=== PATIENT | male | born 1955 | race Caucasian/White ===

== ENCOUNTER 2021-12-13 08:27 | Outpatient (REF) | payer MEDICARE, SELFPAY ==
[2021-12-13 11:47] LABS: Appearance Urine TURBID; Color Urine YELLOW; Glucose Urine UA 500 MG/DL (NEG); Leukocyte Esterase Urine NEG (NEG); Nitrite Urine NEG (NEG); Specific Gravity - Urine >= 1.030 (1.005-1.025); Urine Blood NEG (NEG); Urine Ketones NEG (NEG); Urine Protein NEG (NEG-TRACE)
[2021-12-13 11:54] LABS: Estimated Average Glucose 220 mg/dL; Hemoglobin A1c % 9.3 %
[2021-12-13 12:10] LABS: Alanine Aminotransferase 42 U/L (0-40); Alkaline Phosphatase 68 U/L (39-117); Anion Gap 14 (12-20); Aspartate Amino Transferase 23 U/L (5-37); Bilirubin Total 0.9 mg/dL (0.0-1.0); Blood Urea Nitrogen 16 mg/dL (9-16); Calcium 9.4 mg/dL (8.4-10.2); Carbon Dioxide 27 mmol/L (22-29); Chloride 101 mmol/L (96-108); Cholesterol 185 mg/dL; Estimated Glomerular Filt Rate > 60; Glucose Fasting 262 mg/dL (60-99); HDL Cholesterol 43 mg/dL; LDL Cholesterol Calculated 86 mg/dl; Potassium 3.9 mmol/L (3.3-5.1); Sodium 138 mmol/L (135-145); Total Protein 7.3 g/dL (6.5-8.0); Triglycerides 282 mg/dL
[2021-12-13 12:16] LABS: Prostate Specific Antigen Scr 3.87 ng/mL (<0.05-4.0); TSH reflex Free T4 1.81 uIU/mL (0.32-4.0)
[2021-12-13 12:21] LABS: Rheumatoid Factor < 15.0 IU/mL (<15.0)
[2021-12-13 12:24] LABS: Erythrocyte Sedimentation Rate 2 MM/HR (0-15)
[2021-12-13 12:43] LABS: Creatinine Urine 202.84 mg/dL; Microalbum/Creatinine Ratio Ur 16.2 ug/mg cr
[2021-12-15 13:52] LABS: CRP High Sensitivity 1.1 mg/L
== END 2021-12-13 08:28 | disposition home or self-care (01) ==
LOC: HO.WFDLDS 08:27
PROVIDERS: Visit Provider Family Medicine
DX: Z00.00 Encounter for general adult medical examination without abnormal findings (principal); Z12.5 Encounter for screening for malignant neoplasm of prostate; R73.01 Impaired fasting glucose; M19.041 Primary osteoarthritis, right hand; M19.042 Primary osteoarthritis, left hand; I10 Essential (primary) hypertension
CPT/HCPCS: 36415; 80053; 80061; 81003; 82043; 83036; 84153; 84443; 85652; 86141; 86431

== ENCOUNTER 2022-10-12 08:57 | Outpatient (REF) | payer MEDICARE, SELFPAY ==
--- NOTE | ~2022-10-12 | US_ITS ---
EXAMINATION: US ABDOMEN LIMITED CLINICAL INFORMATION: Unspecified abdominal pain, right of midline. Rule out hernia. COMPARISON: None TECHNIQUE: Real-time imaging of the right periumbilical area. FINDINGS: Limited imaging through the right umbilical/paraumbilical region reveals a right paraumbilical hernia with peristalsing bowel which corresponds to a lump. The neck is 6.5 cm wide. US/US abdomen limited IMPRESSION: Right paraumbilical/paraumbilical hernia containing peristalsing bowel.
== END 2022-10-12 08:58 | disposition home or self-care (01) ==
LOC: HO.HMGCX 08:57
PROVIDERS: PCP Family Medicine; Visit Provider Family Medicine
DX: R10.9 Unspecified abdominal pain (principal)
CPT/HCPCS: 76705

== ENCOUNTER 2022-10-15 10:55 | Outpatient (REF) | payer MEDICARE, SELFPAY ==
[2022-10-15 11:03] LABS: MANUAL DIFF FLAG NO
[2022-10-15 11:42] LABS: Basophils Percent Auto 0.4 % (0-2); Eosinophils Absolute Auto 0.3 X10*3/uL (0.0-0.4); Eosinophils Percent Auto 3.8 % (0-4); Hematocrit 47.8 % (42.0-52.0); Hemoglobin 16.7 g/dl (14.0-18.0); Imm Gran Abs Auto 0.03 X10*3/uL (0.00-0.03); Imm Gran Pct Auto 0.4 % (0.0-0.4); Lymphocytes Percent Auto 29.6 % (20-40); Mean Corpuscular HGB Conc 34.9 g/dl (31.0-36.0); Mean Corpuscular Volume 88.8 fL (80.0-98.0); Mean Platelet Volume 9.5 fL (9.4-12.4); Monocytes Absolute Auto 0.5 X10*3/uL (0.1-1.2); Monocytes Percent Auto 7.7 % (2-11); Neutrophils Percent Auto 58.1 % (45-73); Platelet Count 235 X10*3/uL (160-400); Red Blood Count 5.38 X10*6/uL (4.60-5.80); Red Cell Distribution Width 12.1 % (11.0-16.0); White Blood Count 6.9 X10*3/uL (4.8-10.8)
[2022-10-15 12:10] LABS: Alanine Aminotransferase 28 U/L (0-40); Albumin Level 4.3 g/dL (3.5-5.0); Alkaline Phosphatase 64 U/L (39-117); Anion Gap 13 (12-20); Aspartate Amino Transferase 23 U/L (5-37); Bilirubin Total 0.9 mg/dL (0.0-1.0); Blood Urea Nitrogen 12 mg/dL (9-16); Calcium 9.6 mg/dL (8.4-10.2); Carbon Dioxide 28 mmol/L (22-29); Chloride 101 mmol/L (96-108); Estimated Glomerular Filt Rate > 60; Glucose Random 271 mg/dL (60-115); Potassium 4.3 mmol/L (3.3-5.1); Sodium 138 mmol/L (135-145)
[2022-10-15 12:11] LABS: Estimated Average Glucose 200 mg/dL; Hemoglobin A1c % 8.6 %
== END 2022-10-15 10:56 | disposition home or self-care (01) ==
LOC: HO.LAB 10:55
PROVIDERS: PCP Family Medicine; Visit Provider Surgery
DX: R10.9 Unspecified abdominal pain (principal); E78.1 Pure hyperglyceridemia; E78.5 Hyperlipidemia, unspecified; E11.65 Type 2 diabetes mellitus with hyperglycemia
CPT/HCPCS: 36415; 80053; 83036; 84134; 85025; 99202

== ENCOUNTER 2022-10-30 09:22 | Outpatient (REF) | payer MEDICARE, SELFPAY ==
--- NOTE | ~2022-10-30 | CT_ITS ---
EXAMINATION: CT ABDOMEN AND PELVIS WITHOUT CONTRAST CLINICAL INFORMATION: Abdominal pain. COMPARISON: Ultrasound of 10/12/2022. TECHNIQUE: Multidetector volumetric imaging was performed from the superior aspect of the liver through the pubic symphysis. Sagittal and coronal reformatted images were obtained on the technologist's workstation. This CT examination was performed using dose optimization techniques as appropriate, variously including the following: *Automated exposure control *Adjustment of mA and/or kV according to patient size (this includes techniques or standardized protocols for targeted exams where dose is matched to indication/reason for exam; i.e. extremities or head) *Use of iterative reconstruction technique DLP: 519 mGy-cm FINDINGS: LUNG BASES: The visualized lung bases are unremarkable. No pleural or pericardial effusion. Coronary artery calcifications present. LIVER, GALLBLADDER, AND BILIARY TREE: The liver is enlarged being approximately 20 cm in vertical span. The right lobe of liver is of less density than the left likely related to focal fatty deposition. There is a 1.7 cm cyst seen within segment 7 of the liver. No intrahepatic bile duct dilatation. The gallbladder is unremarkable with no evidence of radiopaque gallstones, gallbladder wall thickening, or obvious pericholecystic inflammatory changes. PANCREAS: Unremarkable. No mass or peripancreatic inflammatory change. SPLEEN: Unremarkable. ADRENAL GLANDS: Unremarkable. KIDNEYS AND URETERS: The kidneys are normal in size, shape, and attenuation. No hydronephrosis, hydroureter, or calculi seen. There is bilateral perinephric stranding. BLADDER: There is thickened urinary bladder wall present. GASTROINTESTINAL TRACT: No dilated loops of large or small bowel are evident. No free air or free fluid is seen. The appendix appears unremarkable. No pericolonic inflammatory changes seen. ABDOMINAL WALL: No umbilical hernia is appreciated. There is mild diastasis recti present. There are bilateral inguinal hernias present containing fat with no loops of bowel involved. There is a 1.2 cm diameter dense calcification seen within the left hemiscrotum. LYMPH NODES: No lymphadenopathy identified. VASCULAR: There is moderate aortoiliac calcified plaque present with plaque at the origins of the visceral vessels. No abdominal aortic aneurysm. PELVIC VISCERA: Prostate gland is prominent. No suspicious pelvic mass. OSSEOUS STRUCTURES: No suspicious destructive bony lesions identified. Changes of enthesopathy seen about the pelvis. There is ankylosis of the sacroiliac joints bilaterally left greater than right. There is bilateral facet arthropathy seen L5-S1. Multilevel anterior spurring is seen within the thoracic and lumbar spine. CT/CT abdomen pelvis wo IV con IMPRESSION: Hepatomegaly with fatty infiltration of the liver. Thickened urinary bladder wall. Bilateral fat-containing inguinal hernias. No evidence of bowel obstruction. No evidence of obstructive uropathy. Fleischner guidelines were followed.
== END 2022-10-30 09:23 | disposition home or self-care (01) ==
LOC: HO.CT 09:22
PROVIDERS: PCP Family Medicine; Visit Provider Surgery
DX: R10.9 Unspecified abdominal pain (principal); E11.65 Type 2 diabetes mellitus with hyperglycemia; E78.1 Pure hyperglyceridemia; E78.5 Hyperlipidemia, unspecified
CPT/HCPCS: 74176

== ENCOUNTER 2022-10-31 10:55 | Outpatient (REF) | payer MEDICARE, SELFPAY ==
[2022-10-31 13:33] LABS: Glucose Random 224 mg/dL (60-115)
[2022-11-01 11:43] LABS: C Peptide 2.19 ng/mL (0.80-3.85)
[2022-11-04 10:18] LABS: Glutamic acid decarboxylase Ab <5 IU/mL (<5)
== END 2022-10-31 10:56 | disposition home or self-care (01) ==
LOC: HO.LAB 10:55
PROVIDERS: PCP Family Medicine; Visit Provider Internal Medicine Endocrinology, Diabetes & Metabolism
DX: E11.9 Type 2 diabetes mellitus without complications (principal); Z79.899 Other long term (current) drug therapy; Z79.4 Long term (current) use of insulin
CPT/HCPCS: 36415; 82947; 84681; 86341; 99202

== ENCOUNTER → 2022-11-01 12:55 | Outpatient (BNVA) | payer MEDICARE, SELFPAY | PROVIDERS: PCP Family Medicine; Visit Provider Registered Nurse Diabetes Educator | DX: E11.65 Type 2 diabetes mellitus with hyperglycemia (principal) | CPT/HCPCS: 99211 ==

== ENCOUNTER → 2022-11-02 14:18 | Outpatient (BNVA) | payer MEDICARE, SELFPAY | PROVIDERS: PCP Family Medicine; Visit Provider Surgery | DX: K40.20 Bilateral inguinal hernia, without obstruction or gangrene, not specified as recurrent (principal); E11.65 Type 2 diabetes mellitus with hyperglycemia; E78.5 Hyperlipidemia, unspecified; I10 Essential (primary) hypertension | CPT/HCPCS: 99212 ==

== ENCOUNTER → 2022-12-05 11:01 | Outpatient (BNVA) | payer MEDICARE, SELFPAY | PROVIDERS: PCP Family Medicine; Visit Provider Dietitian, Registered | DX: E11.65 Type 2 diabetes mellitus with hyperglycemia (principal) | CPT/HCPCS: 97802 ==

== ENCOUNTER 2023-01-30 10:58 | Outpatient (AMB) | payer MEDICARE, SELFPAY ==
--- NOTE | 2023-01-30 11:00 | A.OFFVIS_ITS ---
Intake Vital Signs 01/30/23 11:02 Height 5 ft 9 in Weight 194 lb 10.691 oz BMI 28.7 BP 148/70 H Blood Pressure Location Rt brachial Position Sitting Pulse 78 Pulse Source Pulse Oximeter Intake Visit Reasons: DM Intake Note: Patient present today to follow up on Type 2 Diabetes Mellitus. Last Diabetic Eye exam: 07/20/2022 Last Podiatry Visit: does not see podiatry. 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 Initially diagnosed with T2DM in 10 yrs - saw endo at [facility] in distant past Was initially started on treatment with metformin .Took Humalog in past Current regimen Glipizide 5 mg QD Lantus 34 units . Metformin 1000 mg BID Checks sugars 1 times per day. Average sugar: 156 Range: 58-347 . Avg glucose is 156 . Variability of 63 The patient's blood sugars were in paukbb53% of the time, above % of the time, and below target 6% of the time Reports low sugars once . Most recent A1C 9 on 10/02/22, . Family history of T2DM in mother, brothers, auunts and uncles . Has eyes checked yearly, last eye exam Fall 2021, denies retinopathy. Denies neuropathy, Not sees podiatry. Denies nephropathy, on TERESA/ARB. . Has HLD, on statin. . Denies CAD. Had diabetes education PFSH Surgical History Hx of shoulder surgery Hx of total ankle replacement Family History Father Lung cancer Brother Cardiac defibrillator in place Diabetes Brother Cardiac defibrillator in place Diabetes Brother No known health problems Brother No known health problems Mother Diabetes Social History Housing: House Patient Tobacco Use Status: Never used Tobacco e-Cigarette/Vaping Use: Never Used Second Hand Smoke Exposure: No service: No Current occupational status: retired Current occupational exposures/hazards: No Cognitive needs: No Hearing needs: No Vision needs: No Physical Exam Vital Signs: Last Vital Signs Pulse 78 01/30/23 11:02 BP 148/70 H 01/30/23 11:02 BMI result Body Mass Index 28.7 Results Reviewed Results Reviewed: 01/30/23 11:13 Glucose, Whole Blood Routine Laboratory Last Values Glucose (Clinic) 198 mg/dL (60-115) H 01/30/23 11:13 Assessment & Plan Assessment & Plan (1) Diabetes: Code(s): E11.9 - Type 2 diabetes mellitus without complications Plan: This is a 67-year-old white male with a history of type 2 diabetes being treated with glipizide and basal insulin with fair but improved glycemic control and no known microvascular or macrovascular complications. The plan is to have patient check his point cares pre and 2 hours post breakfast and dinner. Gave patient a sample and prescription for Ashley 3. Will talk to patient about substituting Trulicity. Will start Trulicity 0.75 mg Q weekly and titrate to 1.5 mg if tolerated. Went over side effects of Trulicity including but not limited to nausea, vomiting and rare risk of pancreatitis. Told patient once he tolerates Trulicity to stop the glipizide Trulicity samples given to patient 0.75 mg/0.5 mL Lot # . [id number] expiration date 02/16/2024 Orders: Orders AMB Hemoglobin A1c Today E11.65 - Type 2 diabetes mellitus with hyperglycemia Medications: New blood-glucose sensor (FreeStyle Ashley 3 Sensor device) As directed change every 14 days 2 ea 6RF dulaglutide (Trulicity) 1.5 mg (0.5 mL) subcut QWEEK 2 mL 0RF Coding Level of Care Code Est Pt Level 4 (58186) Diagnoses Diabetes E11.9
[2023-01-30 11:02] VITALS: BP 148/70; PULSE 78; BMI 28.7
[2023-01-30 11:17] LABS: Glucose, Whole Blood 198 mg/dL (60-115)
== END 2023-01-30 12:09 | disposition home or self-care (01) ==
LOC: HO.ENCR 10:58
PROVIDERS: PCP Family Medicine; Visit Provider Internal Medicine Endocrinology, Diabetes & Metabolism
DX: E11.65 Type 2 diabetes mellitus with hyperglycemia (principal)
CPT/HCPCS: 99214

== ENCOUNTER → 2023-01-30 10:58 | Outpatient (BNVA) | payer MEDICARE, SELFPAY | PROVIDERS: PCP Family Medicine; Visit Provider Internal Medicine Endocrinology, Diabetes & Metabolism | DX: E11.65 Type 2 diabetes mellitus with hyperglycemia (principal); E78.5 Hyperlipidemia, unspecified; Z83.3 Family history of diabetes mellitus; Z79.84 Long term (current) use of oral hypoglycemic drugs | CPT/HCPCS: 82947; 99212 ==

== ENCOUNTER → 2023-02-13 14:32 | Outpatient (BNVA) | payer MEDICARE, SELFPAY | PROVIDERS: PCP Family Medicine; Visit Provider Physician Assistant | DX: R19.4 Change in bowel habit (principal); K64.9 Unspecified hemorrhoids; Z79.4 Long term (current) use of insulin | CPT/HCPCS: 99202 ==

== ENCOUNTER → 2023-02-22 09:01 | Outpatient (BNVA) | payer MEDICARE, SELFPAY | PROVIDERS: PCP Family Medicine; Visit Provider Dietitian, Registered | DX: E11.65 Type 2 diabetes mellitus with hyperglycemia (principal) | CPT/HCPCS: 97803 ==

== ENCOUNTER → 2023-02-27 15:43 | Outpatient (BNVA) | payer MEDICARE, SELFPAY | PROVIDERS: PCP Family Medicine; Visit Provider Surgery | DX: K64.8 Other hemorrhoids (principal) | CPT/HCPCS: 46600; 99202 ==

== ENCOUNTER → 2023-04-04 10:00 | Outpatient (BNVA) | payer MEDICARE, SELFPAY | PROVIDERS: PCP Family Medicine; Visit Provider Registered Nurse Diabetes Educator | DX: E11.65 Type 2 diabetes mellitus with hyperglycemia (principal) | CPT/HCPCS: 99211 ==

== ENCOUNTER 2023-05-07 05:53 | Day surgery (SDC) | payer MEDICARE, SELFPAY ==
[2023-05-02 14:54] VITALS: BMI 28.5
[2023-05-07] VITALS (8 sets, daily range): BP systolic 131–168; BP diastolic 65–92; PULSE 57–76; RESP 14–18; TEMP 36.4–36.9; O2SAT 94–99
[2023-05-07] MEDS: Lactated Ringers 1,000 ML 100 ML IVCONT (06:14)
[2023-05-07 06:26] LABS: Glucose, Whole Blood 180 mg/dL (60-115)
--- NOTE | 2023-05-07 07:19 | HO.ANESPROP2 ---
HPI - Anesthesia Eval Consult details Narrative: for hemorrhoidectomy PMFSH Active Problems Active Problems: All Active Problems (Updated 05/02/23 @ 14:47 by Irma Fernández RN) Laboratory exam ordered as part of routine general medical examination (Acute) Diabetes (Acute) Hyperlipidemia (Acute) Arthritis of both hands (Acute) Right ankle pain (Acute) Seborrheic keratosis (Acute) Adult general medical exam (Acute) Hypertriglyceridemia (Acute) Screening for colon cancer (Acute) Screening for prostate cancer (Acute) Essential hypertension (Acute) Elevated alanine aminotransferase (ALT) level (Acute) Murmur (Acute) Neoplasm of uncertain behavior of skin (Acute) Right knee pain (Acute) Infection of skin (Acute) Abdominal pain (Acute) Hemorrhoids (Acute) Fear of flying (Acute) Poorly controlled type 2 diabetes mellitus (Acute) Inguinal hernia bilateral, non-recurrent (Acute) Bowel habit changes (Acute) Prolapsed hemorrhoids (Acute) Past Medical History Medical History (Updated 05/02/23 @ 14:47 by Irma Fernández RN) Diabetes Elevated cholesterol HTN (hypertension) Murmur Prolapsed hemorrhoids Family History Family History Father Lung cancer Brother Cardiac defibrillator in place Diabetes Brother Cardiac defibrillator in place Diabetes Brother No known health problems Brother No known health problems Mother Diabetes Family history of problems with anesthesia: No Surgical History Surgical History Hx of shoulder surgery Hx of total ankle replacement History of Problems with Anesthesia: No Social History Social History Housing: House Patient Tobacco Use Status: Never used Tobacco e-Cigarette/Vaping Use: Never Used Second Hand Smoke Exposure: No Are you DNR?: No Advance Directives: No Advance Directives Information Provided: Yes Nutrition Risks: No Nutritional Risk service: No Current occupational status: retired Current occupational exposures/hazards: No Cognitive needs: No Hearing needs: No Vision needs: No Meds Allergies Allergy/AdvReac Type Severity Reaction Status Date / Time red dye Allergy Itchy Eyes Verified 05/07/23 07:19 Active Medications: Current Medications Lactated Ringer's (Lr) 1,000 mls @ 100 mls/hr IVCONT .Q10H ILIANA Last Admin: 05/07/23 06:14 Dose: 100 mls/hr Home Medications Medication Instructions Recorded Confirmed Last Taken Type aspirin 81 mg tablet,delayed 81 mg PO DAILY 10/31/22 05/02/23 05/06/23 History release (Adult Low Dose Aspirin) lorazepam 0.5 mg tablet 0.5 mg PO BID PRN anxiety 10/31/22 05/02/23 Unknown History Exam Exam Date and Time: May 07, 2023 0719 Height,Weight and Vital Signs: Height 5 ft 9 in Weight 87.543 kg Last Vital Signs Temp 97.9 F 05/07/23 06:32 Pulse 76 05/07/23 06:32 Resp 18 05/07/23 06:32 BP 145/85 H 05/07/23 06:36 Pulse Ox 99 05/07/23 06:32 O2 Del Method Room Air 05/07/23 06:32 Pertinent Lab Results Pertinent Lab Results: Laboratory Tests 05/07/23 06:17 POC Glucose 180 H Airway Mallampati Class: II TM Dist: >3cm Neck ROM: Full Heart: ok Lungs: ok Assessment and Plan Assessment Anesthesia Assessment: Anesthesia Plan Discussed and Chart Reviewed Final Anesthetic Review Family History of Problems with Anesthesia: No History of Problems with Anesthesia: No NPO: Yes ASA Class: III Final Preanesthetic Review: No Changes in Pt Med Stat, Meds/Allgs Chart Reviewed, Consent Obtained/Reviewed and Anes Risks/Benef Reviewed Patient Risk: Intermediate Procedure Risk: Intermediate Anesthetic Plan Anesthetic Plan: GA and Agree w/ Assess. and Plan Disposition: Standard PACU
--- NOTE | 2023-05-07 07:19 | MHC.SHP ---
Pre-Procedural Eval Section A Date of Service: 05/07/23 Section B Chief Complaint: Other hemorrhoids Details of Present Illness: has had significant prolapse, discomfort and discharge from his hemorrhoids; for hemorrhoidectomy today Relevant Family History (Specify if Yes): No Relevant Social History: None Present Medications: see Short Stay Collaborative assessment ( ) Medical History: Significant History (diabetes, hyperlipidemia, arthritis) History of Previous Operations: No relevant previous surgery Allergies: Allergies Allergy/AdvReac Type Severity Reaction Status Date / Time red dye Allergy Itchy Eyes Verified 05/07/23 07:19 Review of Systems Sugical H&P ROS: Negative: Constitution, Cardiovascular, Respiratory, Neurological, Psychiatric, Hem-Onc, Allergic/Immunologic, Gastrointestinal, Genitourinary, Musculoskeletal, Integumentary, Endocrine and Eyes/Ears/Nose/Throat Exam Surgical H&P Exam: Normal: HEENT, Normal: Heart, Normal: Lungs, Normal: Extremities, Normal: Abdomen, Normal: Skin and Normal: Neurological Plan Diagnosis/Plan: Unchanged I have reviewed the history and physical and performed a pertinent physical examination on my patient. No changes have occurred unless specified. Time Spent With Patient Time: Total time managing care of this patient today ____ minutes.
--- NOTE | 2023-05-07 08:16 | W.PM.OPN ---
Operative Note Operative Note Date of Service: 05/07/23 Narrative: Preop diagnosis: internal and external hemorrhoids, with pain and prolapse Postop diagnosis: The same Procedure: Exam under anesthesia, hemorrhoidectomy x2 columns Surgeon: Juan Luis De La Cruz MD The patient is a 67-year-old male, with a long history of pain and discomfort with this hemorrhoids along with prolapse. He wanted to proceed with hemorrhoidectomy. He understood the technique of the procedure as well as the risks, benefits, and alternatives He was brought to the operating room. He was placed in prone narciso-knife position under general anesthesia via laryngeal mask airway. The buttocks were retracted with wide tape laterally. The perianal area was prepped and draped in these were sterile fashion. A surgical time-out was done. The patient received Cefotan 2 g IV preoperatively. I infiltrated the perianal area with lidocaine 1%. Examination of the anal orifice revealed large hemorrhoidal columns on the right anterior and right lateral areas. Smaller hemorrhoidal columns were seen on the left as well. I inserted the Torie Rea retractor and examined the anal canal circumferentially. Again these 2 bulky hemorrhoidal columns on the right per noted and were seen to be a combination of internal external hemorrhoids. I applied a Kang grasper at the hemorrhoidal column on the right anterior to retract this out in the field. I made a figure of 8 stitch at its pedicle past the dentate line using chromic 3-0. I made an incision around this hemorrhoidal column all the way to the perianal skin using a blade 15. I excised this hemorrhoidal column above the plane of sphincters using Metzenbaum scissors along this incision. I closed this incision with a running chromic 3-0 stitch. I reinforced oozing areas figure-eight chromic 3-0 sutures to achieve hemostasis. I then proceeded to apply a Kang grasper at the hemorrhoidal column on the right lateral area. I made a [id number] stitch at the pedicle using a chromic 3-0 and made an incision around this hemorrhoidal column to the perianal skin with a blade 15. I excised this hemorrhoidal column of then the sphincters using scissors along this incision and closed this incision with a running chromic 3-0 stitch. Hemostasis was achieved with canal figure-eight chromic 3-0 sutures. There were smaller hemorrhoidal columns on the left but I did not excise this as these appear to be very minor in size I observed for Ms. Stasis. Once hemostasis was confirmed, proceeded to then apply are rolled Gelfoam into the anal canal for additional hemostasis The perianal area was infiltrated with Marcaine 0.5% for postop all DUYEN. The procedure was then completed The patient tolerated procedure well. There were no immediate complications. Initial and final counts of sponges and instruments were correct. Estimated blood loss about 25 cc. The patient was extubated without difficulty and transferred to the recovery room with stable vital signs.
[2023-05-07] MEDS: oxyCODONE HCl Immed Release 5 MG TABLET 10 MG PO (08:52)
[2023-05-07] MEDS: Acetaminophen 325 MG TABLET 650 MG PO (08:53)
== END 2023-05-07 10:06 | disposition home or self-care (01) ==
PROVIDERS: PCP Family Medicine; Visit Provider Surgery
PROC: (CPT 46260; principal; 2023-05-07 07:30)
DX: K64.8 Other hemorrhoids (principal); E11.9 Type 2 diabetes mellitus without complications
CPT/HCPCS: 46260; 82947; 88304; J1885; J2250; J2405; J3010

== ENCOUNTER → 2023-05-07 05:53 | Outpatient (BNV) | payer MEDICARE, SELFPAY | PROVIDERS: PCP Family Medicine; Visit Provider Surgery | DX: K64.8 Other hemorrhoids (principal); K64.4 Residual hemorrhoidal skin tags | CPT/HCPCS: 46260 ==

== ENCOUNTER 2023-05-14 10:28 | Outpatient (AMB) | payer MEDICARE, SELFPAY ==
[2023-05-14 10:32] VITALS: BP 130/78; PULSE 79; O2SAT 97; BMI 27.5
--- NOTE | 2023-05-14 10:32 | A.OFFPC_ITS ---
Vital Signs 05/14/23 10:32 Height 5 ft 8 in Weight 181 lb BMI 27.5 BP 130/78 Blood Pressure Location Lt brachial Position Sitting Pulse 79 Pulse Source Pulse Oximeter Pulse Oximetry (%) 97 Oxygen Delivery Method Room Air Intake Visit Reasons: f/u diabetes Intake Note: Patient is here to follow up on his diabetes today. Allergies red dye Allergy (Verified 05/14/23 10:34) Itchy Eyes Medication List - Last Reconciled 05/14/23 by Anoop Hammonds MD aspirin (Adult Low Dose Aspirin) 81 mg PO DAILY blood sugar diagnostic (Trig Medical Verio test strips) As directed 2 times a day, 90 days blood-glucose meter (PaydiantTouch Verio Reflect Meter) USE TO TEST THREE TIMES DAILY(FREESTYLE NOT COVERED) docusate sodium (Colace) 100 mg PO BID dulaglutide (Trulicity) 1.5 mg (0.5 mL) subcut QWEEK flash glucose scanning reader (Teez.byStyle Ashley 2 [place]) As directed flash glucose sensor (FreeStyle Ashley 2 Sensor kit) As directed ibuprofen 600 mg PO Q6H PRN insulin glargine (Lantus Solostar U-100 Insulin) 34 units (0.34 mL) subcut QPM 30 days lancets (PaydiantTouch Delica Plus Lancet) USE TO TEST THREE TIMES DAILY(FREESTYLE NOT COVERED) lisinopril 20 mg PO DAILY 90 days lorazepam 0.5 mg PO BID PRN metformin 1,000 mg (2 x 500 mg) PO BID 90 days methylcellulose (laxative) (Citrucel) 500 mg PO BID oxycodone-acetaminophen 5-325 mg (Percocet) 1 tab PO Q4-6H PRN pen needle, diabetic (BD Ultra-Fine Micro Pen Needle) Daily As directed to treat high blood sugar, 90 days polyethylene glycol 3350 (Miralax) 17 grams PO DAILY 30 days polyethylene glycol 3350 (Miralax) 238 grams PO ONCE 1 day polyethylene glycol 3350 (Miralax) 17 grams PO DAILY PRN simvastatin 80 mg PO BEDTIME 90 days Tobacco use date assessed: 05/14/23 Fall risk assessment: No Falls in past year Last assessed Fall Risk: 05/14/23 Dental Screening Dental Screen Date: 05/14/23 Did you have a dental visit in the last 12 months?: Yes Did you have a dental problem in the last 6 months where you did not have access to dental care?: No Was dental information given to patient?: No HPI f/u diabetes HPI Details 67 y/o male presents to f/u diabetes. He had seen Endocrinology Dr Jiménze. Had started him on Trulicity. He is on Trulicity 1.5mg, insulin glarigine 34 units, metformin 1000mg b.i.d. He reports he has been tolerating Trulicity well. Morning blood sugar have been in the 130-135s per pt. A1c today 05/14/23 is 7.3%. [facility] Medical History Diabetes Elevated cholesterol HTN (hypertension) Murmur Prolapsed hemorrhoids Surgical History (Updated 05/14/23 @ 10:42 by Sharon Islas CMA) H/O hemorrhoidectomy Hx of shoulder surgery Hx of total ankle replacement Family History Father Lung cancer Brother Cardiac defibrillator in place Diabetes Brother Cardiac defibrillator in place Diabetes Brother No known health problems Brother No known health problems Mother Diabetes Social History Housing: House Patient Tobacco Use Status: Never used Tobacco e-Cigarette/Vaping Use: Never Used Second Hand Smoke Exposure: No service: No Current occupational status: retired Current occupational exposures/hazards: No Cognitive needs: No Hearing needs: No Vision needs: No Questionnaire Thrive Questionnaire Date Thrive assessed: 11/28/21 AUTUMN-7 AMB Questionnaire AUTUMN-7 Date AUTUMN - 7 assessed: 03/08/22 Source: Developed by Drs. Kayden Ibarra, Marce Phelan, Sean Arciniega and colleagues, with an educational emerald from [employer]. Physical exam (Primary Care) Vital Signs: Last Vital Signs Pulse 79 05/14/23 10:32 BP 130/78 05/14/23 10:32 Pulse Ox 97 05/14/23 10:32 Oxygen Delivery Method Room Air 05/14/23 10:32 BMI result Body Mass Index 27.5 Tobacco/Smoking Status: Tobacco use Status Tobacco use date assessed 05/14/23 05/14/23 10:38 Patient Tobacco Use Status Never used Tobacco 05/14/23 10:38 e-Cigarette/Vaping Use Never Used 05/14/23 10:38 Thrive Assessment: Date of Thrive Assessment Date Thrive assessed 11/28/21 05/14/23 10:38 Results AMB Hemoglobin A1c AMB Hemoglobin A1c 7.3 % Last Edit by Sharon Islas CMA on 05/14/23 11:04 Assessment and Plan Assessment & Plan (1) Diabetes: Code(s): E11.9 - Type 2 diabetes mellitus without complications Plan: A1c 7.3% today. He notes that it had been better than this recently though I do not have records of that. May be a bit higher now due to discontinuing glipizid e. 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 Has upcoming appointment with his covering machine operator helper, Dr. Jiménez No medication changes were made today He will be due for his eye exam in June and he says that he will make that appointment on his way home today. Orders: Orders AMB Hemoglobin A1c Today Z13.9 - Encounter for screening, unspecified Comprehensive [place]. Panel Fast Today Z00.00 - Encounter for general adult medical examination without abnormal findings Lipid Panel Today Z00.00 - Encounter for general adult medical examination without abnormal findings Prostate Specific Antigen Scr Today Z12.5 - Encounter for screening for malignant neoplasm of prostate TSH reflex Free T4 Today Z00.00 - Encounter for general adult medical examination without abnormal findings Microalbumin, Random (w Creat) Today I10 - Essential (primary) hypertension Complete Blood Count Auto Diff Today Z00.00 - Encounter for general adult medical examination without abnormal findings UA and rflx microscopic Today Z00.00 - Encounter for general adult medical examination without abnormal findings Coding Level of Care Code Est Pt Level 3 (64550) Diagnoses Diabetes E11.9
== END 2023-05-14 11:07 | disposition home or self-care (01) ==
PROVIDERS: PCP Family Medicine; Visit Provider Family Medicine
DX: Z13.9 Encounter for screening, unspecified (principal); E11.9 Type 2 diabetes mellitus without complications
CPT/HCPCS: 83036; 99213

== ENCOUNTER 2023-05-20 14:30 | Outpatient (AMB) | payer MEDICARE, SELFPAY ==
[2023-05-20 14:58] VITALS: BP 149/72; PULSE 72; BMI 28.0
--- NOTE | 2023-05-20 14:58 | MHC.OFFVIS ---
Intake Vital Signs 05/20/23 14:58 Height 5 ft 8 in Weight 184 lb BMI 28.0 BP 149/72 H Blood Pressure Location Rt brachial Position Sitting Pulse 72 Intake Visit Reasons: S/P hemorrhoidectomy Intake Note: This patient presents for a post-op assessment status post hemorrhoidectomy. Patient denies complaints at this time. 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 He says he feels well now although he did have significant pain the 1st few days postop. He has good bowel movements. [facility] Medical History Diabetes Elevated cholesterol HTN (hypertension) Murmur Prolapsed hemorrhoids Surgical History H/O hemorrhoidectomy Hx of shoulder surgery Hx of total ankle replacement Family History Father Lung cancer Brother Cardiac defibrillator in place Diabetes Brother Cardiac defibrillator in place Diabetes Brother No known health problems Brother No known health problems Mother Diabetes Social History Housing: House Patient Tobacco Use Status: Never used Tobacco e-Cigarette/Vaping Use: Never Used Second Hand Smoke Exposure: No service: No Current occupational status: retired Current occupational exposures/hazards: No Cognitive needs: No Hearing needs: No Vision needs: No Review of Systems Const Denies chills and Denies fever(s) Physical Exam Vital Signs: Last Vital Signs Pulse 72 05/20/23 14:58 BP 149/72 H 05/20/23 14:58 BMI result Body Mass Index 28.0 Const General: comfortable and no acute distress Resp Effort & Inspection: normal respiratory effort GI Other: Rectal exam - hemorrhoidectomy sites are healing well, no induration, no discharge, no signs of infection Assessment & Plan Assessment & Plan (1) Prolapsed hemorrhoids: Code(s): K64.8 - Other hemorrhoids Plan: Status post hemorrhoidectomy. His incisions are healing well. I advised him to avoid straining and constipation and to continue doing warm soaks to the area He has done well postoperatively otherwise and he can come back to the office or call me if he has any concerns down the line. Coding Level of Care Code Global (77057) Diagnoses Prolapsed hemorrhoids K64.8
== END 2023-05-20 16:47 | disposition home or self-care (01) ==
PROVIDERS: Visit Provider Surgery
DX: K64.8 Other hemorrhoids (principal)
CPT/HCPCS: 99024

== ENCOUNTER → 2023-05-20 14:30 | Outpatient (BNVA) | payer MEDICARE, SELFPAY | PROVIDERS: Visit Provider Surgery ==

== ENCOUNTER 2023-06-06 09:01 | Outpatient (AMB) | payer MEDICARE, SELFPAY ==
--- NOTE | 2023-06-06 09:46 | MHC.AMDMED ---
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: DM Full Time Babysitter Required: No Accompanied by: Self / Same As Patient Allergies red dye Allergy (Verified 05/20/23 15:04) Itchy Eyes HPI Comprehensive Diabetes Asmnt Most Recent Diabetes Results: No Data to Display [facility] Medical History Diabetes Elevated cholesterol HTN (hypertension) Murmur Prolapsed hemorrhoids Surgical History H/O hemorrhoidectomy Hx of shoulder surgery Hx of total ankle replacement Family History Father Lung cancer Brother Cardiac defibrillator in place Diabetes Brother Cardiac defibrillator in place Diabetes Brother No known health problems Brother No known health problems Mother Diabetes Social History Housing: House Patient Tobacco Use Status: Never used Tobacco e-Cigarette/Vaping Use: Never Used Second Hand Smoke Exposure: No service: No Current occupational status: retired Current occupational exposures/hazards: No Cognitive needs: No Hearing needs: No Vision needs: No Assessment & Plan Assessment & Plan (1) Poorly controlled type 2 diabetes mellitus: Code(s): E11.65 - Type 2 diabetes mellitus with hyperglycemia Plan: Personal Continuous Glucose Monitor: Patients CGM information reviewed Reviewed patient's sensor data: Hypoglycemia: ? 0% Hyperglycemia:?68% Time in Range:?32% Average glucose for the last 10 days 202? mg/dL Patient reports he stopped using Trulicity approximately 2-3 weeks ago due to cost of co-payment. Approximately a week ago he restarted glipizide 5 mg, 3 tabs before breakfast 2 tabs before supper Patient's last A1c on 05/14/2023 7.3%, although average glucose running above that at this time Reviewed with patient action of Trulicity and glipizide, reinforce that glipizide increases chance of experiencing hypoglycemia. Patient denies symptoms or hypoglycemia events at this time Suggested to patient he contact insurance company to find out which diabetes medications fall in tier 1. He can discuss alternative medications at upcoming visit with Dr. Jiménez Reviewed how to interpret trend arrows Reminded patient that to check finger sticks if symptoms do not match sensor reading. Discussed lag time between finger stick and sensor data.? Patient able to insert sensor independently at home without issue.? Patient Instructions: Patient will follow-up with tobacco prevention health educator in 1 month if medication changes In 3 months if medications stay the same Coding Level of Care Code Est Pt Level 1 (68244) Diagnoses Poorly controlled type 2 diabetes mellitus E11.65
== END 2023-06-06 10:48 | disposition home or self-care (01) ==
PROVIDERS: PCP Family Medicine; Visit Provider Registered Nurse Diabetes Educator
DX: E11.65 Type 2 diabetes mellitus with hyperglycemia (principal)

== ENCOUNTER → 2023-06-06 09:01 | Outpatient (BNVA) | payer MEDICARE, SELFPAY | PROVIDERS: PCP Family Medicine; Visit Provider Registered Nurse Diabetes Educator | DX: E11.65 Type 2 diabetes mellitus with hyperglycemia (principal) | CPT/HCPCS: 99211 ==

== ENCOUNTER 2023-06-11 09:09 | Outpatient (AMB) | payer MEDICARE, SELFPAY ==
--- NOTE | 2023-06-11 09:09 | A.OFFVIS_ITS ---
Intake Vital Signs 06/11/23 09:10 Height 5 ft 8 in Weight 184 lb 1.376 oz BMI 28.0 BP 132/76 Blood Pressure Location Rt brachial Position Sitting Pulse 74 Pulse Source Pulse Oximeter Intake Visit Reasons: Type 2 DM Intake Note: Patient present today to follow up on Type 2 Diabetes Mellitus. Patient receives DME supplies through: Pharmacy Last Diabetic Eye exam: 07/20/2022 Last Podiatry Visit: None Random Glucose: 190mg/dl HgA1C: 7.3% 05/14/23 Accompanied by: Self / Same As Patient Allergies red dye Allergy (Verified 06/11/23 09:17) Itchy Eyes Medication List - Last Reconciled 06/11/23 by Kayden Jiménez MD aspirin (Adult Low Dose Aspirin) 81 mg PO DAILY blood sugar diagnostic (Amulyte Verio test strips) As directed 2 times a day, 90 days blood-glucose meter (Lynx DesignTouch Verio Reflect Meter) USE TO TEST THREE TIMES D AILY(FREESTYLE NOT COVERED) dulaglutide (Trulicity) 1.5 mg (0.5 mL) subcut QWEEK flash glucose scanning reader (TriblioStyle Ashley 2 [place]) As directed flash glucose sensor (FreeStyle Ashley 2 Sensor kit) As directed insulin glargine (Lantus Solostar U-100 Insulin) 34 units (0.34 mL) subcut QPM 30 days lancets (Farmainstantuch Delica Plus Lancet) USE TO TEST THREE TIMES DAILY(FREESTYLE NOT COVERED) lisinopril 20 mg PO DAILY 90 days lorazepam 0.5 mg PO BID PRN metformin 1,000 mg (2 x 500 mg) PO BID 90 days methylcellulose (laxative) (Citrucel) 500 mg PO BID pen needle, diabetic (BD Ultra-Fine Micro Pen Needle) Daily As directed to treat high blood sugar, 90 days simvastatin 80 mg PO BEDTIME 90 days HPI HPI Comments History of Present Illness Details 67 YO M who is seen in consultation for T2DM at the request of PCP. Initially diagnosed with T2DM in 10 yrs - saw endo at [facility] in distant past Was initially started on treatment with metformin .Took Humalog in past Current regimen Glipizide 5 mg QD Lantus 34 units . Metformin 1000 mg BID Trulicty 1.5 mg Qkly not using due to copay Ashley download shows she is using the sensor is 87% of the time. Average glucose is 205 with G mi of 8.2%. Variability is 29.8%. 36% range with 64 hyperglycemia and no hypoglycemia. Pattern shows decreasing point cares overnight with elevation after breakfast . Reports low sugars once . Most recent A1C 9 on 10/02/22, . Family history of T2DM in mother, brothers, auunts and uncles . Has eyes checked yearly, last eye exam has appt next mo , denies retinopathy. Denies neuropathy, Not sees podiatry. Denies nephropathy, on TERESA/ARB. . Has HLD, on statin. . Denies CAD. Had diabetes education [facility] Medical History Diabetes Elevated cholesterol HTN (hypertension) Murmur Prolapsed hemorrhoids Surgical History H/O hemorrhoidectomy Hx of shoulder surgery Hx of total ankle replacement Family History Father Lung cancer Brother Cardiac defibrillator in place Diabetes Brother Cardiac defibrillator in place Diabetes Brother No known health problems Brother No known health problems Mother Diabetes Social History Housing: House Patient Tobacco Use Status: Never used Tobacco e-Cigarette/Vaping Use: Never Used Second Hand Smoke Exposure: No service: No Current occupational status: retired Current occupational exposures/hazards: No Cognitive needs: No Hearing needs: No Vision needs: No Physical Exam Vital Signs: BMI result Body Mass Index 28.0 Absence of Cushingoid features. Absence of acromegalic features. Neck exam reveals nl size thyroid about 15 gms. No thyroid nodules palpable. No carotid bruits present. Lungs CTA. Heart S1 S2, Reg R/R. No M/R/ G. Skin exam reveals absence of vitiligo or acanthosis nigricans. Abdominal exam reveals Soft NT/ND with NA BS. No organomegaly present. Neck Other: . Extrem Other: Visual exam of foot performed. No ulcerations or open lesions. No onchomycosis, no callouses.Pulses 2 + distally Sensation intact to monofilament exam. Vibratory sensation sensed is intact with 128 Hz tuning fork Assessment & Plan Assessment & Plan (1) Diabetes: Code(s): E11.9 - Type 2 diabetes mellitus without complications Plan: This is a 68-year-old white male with a history of type 2 diabetes being treated with glipizide and basal insulin with poor glycemic control and no known tara rovascular or macrovascular complications. The plan is to restart Trulicity 1.5 mg Q weekly. Patient was given samples of Trulicity 1.5 mg. He was told to stop the glipizide. Can possibly titrate the Trulicity in future or switch to Mounjaro if there is less of co-pay in the future. Will follow-up with the nurse informatics educator Trulicity samples given to patient 1.5 mg/0.5 mL Lot # . [id number] expiration date 01/31/2024 and lot number [id number] C expiration 02/06/2020 Coding Level of Care Code Est Pt Level 4 (01635) Diagnoses Diabetes E11.9
[2023-06-11 09:10] VITALS: BP 132/76; PULSE 74; BMI 28.0
[2023-06-11 09:28] LABS: Glucose, Whole Blood 190 mg/dL (60-115)
== END 2023-06-11 09:51 | disposition home or self-care (01) ==
PROVIDERS: PCP Family Medicine; Referring Provider Family Medicine; Visit Provider Internal Medicine Endocrinology, Diabetes & Metabolism
DX: E11.9 Type 2 diabetes mellitus without complications (principal)
CPT/HCPCS: 99214

== ENCOUNTER → 2023-06-11 09:09 | Outpatient (BNVA) | payer MEDICARE, SELFPAY | PROVIDERS: Visit Provider Internal Medicine Endocrinology, Diabetes & Metabolism | DX: E11.9 Type 2 diabetes mellitus without complications (principal); Z79.4 Long term (current) use of insulin | CPT/HCPCS: 82947; 99212 ==

== ENCOUNTER 2023-06-18 09:02 | Outpatient (AMB) | payer MEDICARE, SELFPAY ==
[2023-06-18 09:12] VITALS: BMI 28.3
--- NOTE | 2023-06-18 09:12 | A.OFFVIS_ITS ---
Intake VS Expanded 06/18/23 09:12 Height 5 ft 8 in Weight 186 lb 4.65 oz BMI 28.3 Intake Visit Reasons: T2DM Allergies red dye Allergy (Verified 06/11/23 09:17) Itchy Eyes HPI Nutrition Presentation Details Pt presents for MNT follow up for t2dm Diet modification challenges: increased appetite for sweets Pt verbalizes understanding relationship of carbohydrates to BG and medications. Most Recent Diabetes Results: No Data to Display [facility] Medical History Diabetes Elevated cholesterol HTN (hypertension) Murmur Prolapsed hemorrhoids Surgical History H/O hemorrhoidectomy Hx of shoulder surgery Hx of total ankle replacement Family History Father Lung cancer Brother Cardiac defibrillator in place Diabetes Brother Cardiac defibrillator in place Diabetes Brother No known health problems Brother No known health problems Mother Diabetes Social History Housing: House Patient Tobacco Use Status: Never used Tobacco e-Cigarette/Vaping Use: Never Used Second Hand Smoke Exposure: No service: No Current occupational status: retired Current occupational exposures/hazards: No Cognitive needs: No Hearing needs: No Vision needs: No Assessment & Plan Assessment & Plan (1) Poorly controlled type 2 diabetes mellitus: Code(s): E11.65 - Type 2 diabetes mellitus with hyperglycemia Plan: Educate Pt on 2200 bill meal plan ? Pt's set goal (Date: 12/05/22 ): have glucerna shake at bedtime snack in place of pastry at follow up (Date: 06/18/23 ): met 25% Used wt : 89 kg Est kcal as per MSJ: 2200 (40% carb, 30% fat/prot) Est fluid needs: 2225 ml/d (25 ml/kg bw) Rec fiber: increase to 8-10 g per day and gradually increase to 35 g or as tolerated Rec Na: < 2000 mg /d Educate patient on: (R= Reviewed, V = verbalizes understanding N/R= Needs review N/A= not applicable) * Food sources of carbohydrates and serving adequate serving sizes : R ,V * Difference between complex carbohydrates and simple carbohydrates, role of fiber: R ,V * Differences between fats (MUFA/PUFA/saturated fats, trans fats) and food sources of various fats: R * Food sources of sodium and salt and healthy modifications for heart health and kidney health: N/R * Vitamins and minerals: R * How to interpret food labels: R * Healthy Plate method concept: R,V * Physical activity: benefits and precaution: R,V * prevention and treatment of hypoglycemia: R,V Patient Instructions: Have a glucerna shake at bedtime Coding Level of Care Code Nutr Indiv Subseq (45493) Diagnoses Poorly controlled type 2 diabetes mellitus E11.65 Time Spent (min) 20
== END 2023-06-18 09:51 | disposition home or self-care (01) ==
PROVIDERS: PCP Family Medicine; Visit Provider Dietitian, Registered
DX: E11.65 Type 2 diabetes mellitus with hyperglycemia (principal)

== ENCOUNTER → 2023-06-18 09:02 | Outpatient (BNVA) | payer MEDICARE, SELFPAY | PROVIDERS: Visit Provider Dietitian, Registered | DX: E11.65 Type 2 diabetes mellitus with hyperglycemia (principal) | CPT/HCPCS: 97803 ==

== ENCOUNTER 2023-08-06 08:38 | Outpatient (REF) | payer MEDICARE, SELFPAY ==
[2023-08-06 13:00] LABS: Alanine Aminotransferase 21 U/L (0-40); Albumin Level 4.1 g/dL (3.5-5.0); Alkaline Phosphatase 50 U/L (39-117); Anion Gap 15 (12-20); Aspartate Amino Transferase 23 U/L (5-37); Bilirubin Total 0.8 mg/dL (0.0-1.0); Blood Urea Nitrogen 15 mg/dL (9-16); Calcium 9.2 mg/dL (8.4-10.2); Carbon Dioxide 24 mmol/L (22-29); Chloride 106 mmol/L (96-108); Cholesterol 130 mg/dL (<200); Estimated Glomerular Filt Rate > 60; Glucose Fasting 144 mg/dL (60-99); HDL Cholesterol 47 mg/dL (>40); LDL Cholesterol Calculated 62 mg/dL (<100); Potassium 4.2 mmol/L (3.3-5.1); Sodium 141 mmol/L (135-145); TSH reflex Free T4 1.91 uIU/mL (0.32-4.0); Total Protein 6.9 g/dL (6.5-8.0); Triglycerides 106 mg/dL (<150)
== END 2023-08-06 08:39 | disposition home or self-care (01) ==
LOC: HO.WFDLDS 08:38
PROVIDERS: Visit Provider Family Medicine
DX: Z00.00 Encounter for general adult medical examination without abnormal findings (principal); Z12.5 Encounter for screening for malignant neoplasm of prostate; I10 Essential (primary) hypertension
CPT/HCPCS: 36415; 80053; 80061; 81003; 82043; 82570; 84153; 84443; 85025

== ENCOUNTER 2023-08-08 10:56 | Outpatient (AMB) | payer MEDICARE, SELFPAY ==
[2023-08-08 11:00] VITALS: BP 128/78; PULSE 74; O2SAT 97; BMI 28.9
--- NOTE | 2023-08-08 11:00 | MHC.PC.OV ---
Vital Signs 08/08/23 11:00 Height 5 ft 8 in Weight 190 lb 3 oz BMI 28.9 BP 128/78 Blood Pressure Location Rt brachial Position Sitting Pulse 74 Pulse Source Pulse Oximeter Pulse Oximetry (%) 97 Oxygen Delivery Method Room Air Intake Visit Reasons: CPE with f/u labs and health maintenance Intake Note: Patient is here for his physical today, and lab results. Allergies red dye Allergy (Verified 08/08/23 11:04) Itchy Eyes Medication List - Last Reconciled 08/08/23 by Anoop Hammonds MD aspirin (Adult Low Dose Aspirin) 81 mg PO DAILY blood sugar diagnostic ([employer] Verio test strips) As directed 2 times a day, 90 days blood-glucose meter (VisiarcTouch Verio Reflect Meter) USE TO TEST THREE TIMES DAILY(FREESTYLE NOT COVERED) dulaglutide (Trulicity) 1.5 mg (0.5 mL) subcut QWEEK flash glucose scanning reader (Clearstream.TVStyle Ashley 2 [place]) As directed flash glucose sensor (FreeStyle Ashley 2 Sensor kit) As directed insulin glargine (Lantus Solostar U-100 Insulin) 34 units (0.34 mL) subcut QPM 30 days lancets (Innovative Composites Internationaluch Delica Plus Lancet) USE TO TEST THREE TIMES DAILY(FREESTYLE NOT COVERED) lisinopril 20 mg PO DAILY 90 days lorazepam 0.5 mg PO BID PRN 2 days metformin 1,000 mg (2 x 500 mg) PO BID 90 days pen needle, diabetic (BD Ultra-Fine Micro Pen Needle) Daily As directed to treat high blood sugar, 90 days simvastatin 80 mg PO BEDTIME 90 days Tobacco use date assessed: 08/08/23 Fall risk assessment: No Falls in past year Last assessed Fall Risk: 08/08/23 Dental Screening Dental Screen Date: 08/08/23 Did you have a dental visit in the last 12 months?: Yes Did you have a dental problem in the last 6 months where you did not have access to dental care?: No Was dental information given to patient?: Patient has dentist HPI CPE with f/u labs and health maintenance HPI Details 68 y/o male presents for a CPE with f/u labs and health maintenance. Labs were drawn 08/06/23. Reviewed labs with pt. Triglycerides 106. TC 130. LDL 62. HDL 47. He is on simvastatin 80mg. Blood pressure today 128/78. He is on lisinopril 20mg daily. Last A1c 05/14/23 7.3%. A1c today 08/08/23 7.1%. Pt reports cologuard was about 3 years ago. [facility] Medical History Murmur Elevated cholesterol HTN (hypertension) Diabetes Prolapsed hemorrhoids Surgical History H/O hemorrhoidectomy Hx of shoulder surgery Hx of total ankle replacement Family History Father Lung cancer Brother Cardiac defibrillator in place Diabetes Brother Cardiac defibrillator in place Diabetes Brother No known health problems Brother No known health problems Mother Diabetes Social History Housing: House Patient Tobacco Use Status: Never used Tobacco e-Cigarette/Vaping Use: Never Used Second Hand Smoke Exposure: No service: No Current occupational status: retired Current occupational exposures/hazards: No Cognitive needs: No Hearing needs: No Vision needs: No Questionnaire Thrive Questionnaire Date Thrive assessed: 11/28/21 AUTUMN-7 AMB Questionnaire AUTUMN-7 Date AUTUMN - 7 assessed: 03/08/22 Source: Developed by Drs. Kayden Ibarra, Marce Phelan, Sean Arciniega and colleagues, with an educational emerald from [employer]. Review of Systems Const Denies chills, Denies fatigue, Denies fever(s), Denies headache(s) and Denies weakness Eyes Denies change in vision ENT Denies dizziness, Denies headache(s), Denies hearing loss, Denies nasal congestion, Denies sinus pain, Denies sinus pressure and Denies sore throat Card Denies chest pain, Denies lightheadedness, Denies dyspnea and Denies other (palpitations) Resp Denies cough, Denies dyspnea and Denies wheezing GI Denies abdominal pain, Denies melena, Denies hematochezia, Denies change in bowel habits, Denies dyspepsia and Denies nausea Denies hematuria and Denies dysuria Musc Denies abnormal gait, Denies myalgias, Denies arthralgias, Denies numbness and Denies tingling Skin/Breast Denies rash, Denies unusual bruising and Denies wounds Neuro Denies abnormal gait, Denies dizziness, Denies headache(s), Denies memory loss, Denies numbness, Denies Sensory deficit (Neuro), Denies tingling and Denies weakness Psych Denies anxiety, Denies depression and Denies memory loss Endo Denies cold intolerance, Denies fatigue, Denies heat intolerance, Denies polydipsia and Denies polyuria Kael/Lymph Denies easy bleeding and Denies easy bruising Aller/Immun Denies wheezing Physical exam (Primary Care) Vital Signs: Last Vital Signs Pulse 74 08/08/23 11:00 BP 128/78 08/08/23 11:00 Pulse Ox 97 08/08/23 11:00 Oxygen Delivery Method Room Air 08/08/23 11:00 BMI result Body Mass Index 28.9 Tobacco/Smoking Status: Tobacco use Status Tobacco use date assessed 08/08/23 08/08/23 11:07 Patient Tobacco Use Status Never used Tobacco 08/08/23 11:03 e-Cigarette/Vaping Use Never Used 08/08/23 11:03 Thrive Assessment: Date of Thrive Assessment Date Thrive assessed 11/28/21 08/08/23 11:03 Const General: no acute distress, well developed, alert and awake Nutritional Appearance: well nourished Orientation/consciousness: patient oriented x3 HENMT Head: Yes normocephalic and Yes atraumatic Ears: hearing grossly normal bilaterally and TM's normal bilaterally General nose exam: Normal external nose present and Normal nares present Mouth: Normal oral and palatal mucosa present and moist mucous membranes Teeth and gingiva: dentition normal Throat: Yes posterior oropharynx normal Eyes General: appearance normal, both eyes and all related structures Pupils: Equal, round and reactive pupils present and Pupil accommodation reflex normal EOM: EOMs intact bilaterally Neck Neck: Yes normal visual inspection, Yes no lymphadenopathy and Yes trachea midline Thyroid: Thyroid normal Carotids: no bruits Lymphatic: no lymphadenopathy noted Chest Chest palpation & inspection: normal inspection of the chest Resp Effort & Inspection: normal respiratory effort Auscultation: clear to auscultation bilaterally Cardio Rate: regular rate Rhythm: regular rhythm Heart sounds: S1 normal heart sound present, S2 normal heart sound present, no gallops, Murmur heart sound present (4/6 systolic murmur) and no rubs Bruits: no abdominal aortic bruits and no carotid bruits GI Palpation (GI): No Abdominal aortic bruit present, Soft to palpation, nontender, No hepatosplenomegaly present and No Rebound tenderness present Auscultation: normal bowel sounds General: Yes no CVA tenderness Back/Spine/Pelvis Back: no CVA tenderness Cervical Spine: cervical ROM normal and No Cervical spine tenderness Thoracic/Lumbar Spine: thoraco-lumbar ROM normal, No pain with thoraco-lumbar ROM, No thoracic spinal tenderness and No lumbar spinal tenderness Skin Lesions: no lesions Rashes: no rashes Trauma: no lacerations or abrasions Wounds: no wounds Nails: normal Neuro General: patient oriented x3 Cranial nerves: Yes Equal, round and reactive pupils present Cognition (Neuro): normal cognition Gait exam (Neuro): Normal gait present Motor exam (neuro): 5/5 motor strength present throughout Sensory Exam: No Sensory deficit (Neuro) Deep tendon reflexes (DTR's): Right patellar reflex intensity grade: 2+ and Left patellar reflex intensity grade: 2+ Extrem General: Yes normal to inspection and No edema Psych Appearance: grossly normal Affect: normal affect Attitude: cooperative Thought process: Normal thought process present Results AMB Hemoglobin A1c AMB Hemoglobin A1c 7.1 % Last Edit by Sharon Islas CMA on 08/08/23 11:28 Results Reviewed Results Reviewed: Laboratory Last Values Hgb A1c (Clinic) 7.1 % (4.0-6.0) H 08/08/23 11:20 Assessment and Plan Assessment & Plan (1) Adult general medical exam: Code(s): Z00.00 - Encounter for general adult medical examination without abnormal findings Plan: 68-year-old?male?presents?for?complete?physical?exam Stable (2) Essential hypertension: Code(s): I10 - Essential (primary) hypertension Plan: Blood?pressure?is?controlled.??Goal?is currently?less?than?140/90?though?patient?does?have?a?loud?aortic?murmur?and?goal?may?need?to?be?adjusted. Continue?current?medication?regimen (3) Diabetes: Code(s): E11.9 - Type 2 diabetes mellitus without complications Plan: A1c?continues?to?improve?and?nearly?at?goal?of?less?than?7.0% Continue?current?diabetic?regimen (4) Screening for prostate cancer: Code(s): Z12.5 - Encounter for screening for malignant neoplasm of prostate Plan: PSA?less?than?4.0?and?has?decreased?slightly?from?prior?check No?symptoms Will?continue?to?monitor (5) Murmur: Code(s): R01.1 - Cardiac murmur, unspecified Plan: 01/31?systolic?murmur, loudest?over?aortic?region?though?her?prominently?at?mitral?region?as?well. Patient?is?aware?of?this?but?does?not?think?he?has?ever?had?an?echocardiogram Check?echo (6) Screening for colon cancer: Code(s): Z12.11 - Encounter for screening for malignant neoplasm of colon Plan: Cologuard?test?was?negative.??Up-to-date. He?is?considering?another?Cologuard?test?when?he?is?due?and?then?a?strategy?of?colonoscopy?after?that. (7) Hyperlipidemia: Code(s): E78.5 - Hyperlipidemia, unspecified Plan: Lipids?are?well?controlled?on?simvastatin?which?he?is?tolerating. Continue?current?regimen (8) Systolic murmur of aorta: Code(s): I35.8 - Other nonrheumatic aortic valve disorders Plan: As?above Orders: Orders CA echo transthoracic complete Today I35.8 - Other nonrheumatic aortic valve disorders AMB Hemoglobin A1c Today Z13.9 - Encounter for screening, unspecified Coding Level of Care Code Est Pt Level 3 (81003) Est Pt Prev Care >65y(00009) Diagnoses Adult general medical exam Z00.00 Essential hypertension I10 Diabetes E11.9 Screening for prostate cancer Z12.5 Murmur R01.1 Screening for colon cancer Z12.11 Hyperlipidemia E78.5 Systolic murmur of aorta I35.8
== END 2023-08-08 12:10 | disposition home or self-care (01) ==
PROVIDERS: PCP Family Medicine; Visit Provider Family Medicine
DX: Z00.00 Encounter for general adult medical examination without abnormal findings (principal); I10 Essential (primary) hypertension; E11.9 Type 2 diabetes mellitus without complications; Z12.5 Encounter for screening for malignant neoplasm of prostate; R01.1 Cardiac murmur, unspecified; H61.22 Impacted cerumen, left ear; Z12.11 Encounter for screening for malignant neoplasm of colon; E78.5 Hyperlipidemia, unspecified; I35.8 Other nonrheumatic aortic valve disorders
CPT/HCPCS: 69209; 83036; 99397

== ENCOUNTER → 2023-09-04 14:56 | Outpatient (REF) | payer MEDICARE, SELFPAY ==
--- NOTE | 2023-09-04 15:00 | CA_ITS ---
Transthoracic Echocardiogram Patient (Last, First, Middle): Hugo Glasgow, Gender: Male Date of : 1955 Age: 68 Procedure Date: 09/04/2023 Procedure Type: Transthoracic Echocardiogram Location: OP Height: 167.64 cm Weight: 79.38 kg BSA: 1.89 m2 Heart Rate: bpm BP: 145 / 87 mmHg Document Control Coordinator: ADAMARIS/CECI Referring MD: Anoop Hammonds MD Symptoms: I35.8 - Other nonrheumatic aortic valve disorders Study Quality: Fair Conclusions: - 1. Technically difficult study despite use of contrast agent 2. Normal LV ejection fraction of 60 65% with impaired relaxation filling pattern 3. Moderate aortic stenosis Findings Procedure Information Contrast agent, definity, is being given per protocol without apparent complications. Left Ventricle Normal left ventricular size, thickness, and systolic function. The visually estimated ejection fraction is between 60-65%. Spectral Doppler is indicative of an impaired relaxation filling pattern. Right Ventricle The right ventricle was not well visualized. Atria The left atrium is likely dilated. Interatrial shunt cannot be excluded. The right atrium was not well visualized. Aortic Valve There is moderate calcification of the aortic valve. There is moderate aortic valve stenosis. The peak aortic gradient is 42 mmHg.The mean gradient is 26 mmHg. There is no aortic valve regurgitation. Mitral Valve The mitral valve was not well visualized. There is no mitral valve regurgitation. There is no mitral valve stenosis. Pulmonic Valve The pulmonic valve was not well visualized. Tricuspid Valve The tricuspid valve was not well visualized. Tricuspid regurgitation envelope is inadequate for calculation of right ventricular systolic pressure. Normal right atrial pressure. Great Vessels The aorta was not well visualized. The pulmonary artery was not well visualized. Venous The inferior vena cava is normal in size and collapses greater than 50% with inspiration. Pericardium/Pleural The pericardium was not well visualized. Prior Study Comparison No prior study available for comparison. Measurements 2D Linear Measurements IVSd: 0.78 0.6-0.9/0.6-1.0 cm LVIDd: 4.41 3.9-5.3/4.2-5.9 cm LVIDd Index: 2.33 2.4-3.2/2.2-3.1 cm/m2 LVIDs: 3.34 2.0-3.6 cm LVPWd: 1.09 0.7-1.1 cm LA Diam: 3.90 2.7-3.8/3.0-4.0 cm LAIDs Index: 2.06 1.5-2.3 cm/m2 LV Mass: 168.14 67-162/88-224 g LV Mass Index: 88.96 43-95/49-115 g/m2 LVOT Diam: 2.00 3.0+(-)1.3 cm 2D Systolic Function EF 4C: 61.80 >55% EF 2C: 58.60 >55% EF BiP: 60.30 >55% Mitral Valve MV Pk E: 0.59 MV PK A: 0.90 MV Decel Time: 200.00 E/A: 0.70 E'Lateral: 7.40 E'Medial: 5.98 E/E' Med: 9.90 E/E' Lat: 8.00 PHT: 59.00 MVA PHT: 3.73 Decel Lander: 2.95 Aortic Valve AoV Pk Monroe: 3.24 AoV Mn Monroe: 2.43 AoV VTI: 0.70 AoV Pk Grad: 42.00 Aov Mn Grad: 26.00 LYNNE Cont.VTI: 1.11 LVOT LVOT Pk [place]: 1.22 LVOT Mn [place]: 0.88 LVOT VTI: 0.25 LVOT Pk Grad: 6.00 LVOT Mn Grad: 4.00 LVOT Diam: 2.00 LVOT Area: 3.14 Diastolic Function MV Pk E: 0.59 MV Pk A: 0.90 E/A: 0.70 E'Medial: 5.98 E/E' Med: 9.90 E' Laterial: 7.40 E/E' Lat: 8.00 Right Ventricle TAPSE (mm): 19.40 TVS' Monroe: 14.80 Tricuspid Valve RA Press: 3.00 Great Vessels Aorta Sinus of Valsalva: 3.53 2.0-3.[address] [place]: 2.98 1.7-3.4 cm Ao Asc: 3.40 2.1-3.4 cm Updated in Other Vendor System with Status of Final Michael Rubio MD electronically signed on 09/05/2023 4:33:53 PM with status of Final
== END ==
LOC: HO.CARD 14:56
PROVIDERS: PCP Family Medicine; Visit Provider Family Medicine
DX: I35.8 Other nonrheumatic aortic valve disorders (principal)
CPT/HCPCS: 93306; Q9957

== ENCOUNTER → 2023-09-04 15:00 | Outpatient (BNV) | payer MEDICARE, SELFPAY | PROVIDERS: PCP Family Medicine; Visit Provider Internal Medicine Cardiovascular Disease | DX: I35.8 Other nonrheumatic aortic valve disorders (principal) | CPT/HCPCS: 93306 ==

== ENCOUNTER 2023-09-23 09:26 | Outpatient (AMB) | payer MEDICARE, SELFPAY ==
--- NOTE | 2023-09-23 09:31 | MHC.PC.OV ---
Vital Signs 09/23/23 09:32 Height 5 ft 8 in Weight 193 lb 8 oz BMI 29.4 BP 120/72 Blood Pressure Location Lt brachial Position Sitting Pulse 83 Pulse Source Pulse Oximeter Pulse Oximetry (%) 98 Oxygen Delivery Method Room Air Intake Visit Reasons: f/u echocardiogram for systolic aortic murmur Intake Note: Patient is here to follow up on echo cardiogram for systolic aortic murmur. Allergies red dye Allergy (Verified 09/23/23 09:36) Itchy Eyes Tobacco use date assessed: 09/23/23 Fall risk assessment: No Falls in past year Last assessed Fall Risk: 09/23/23 Dental Screening Dental Screen Date: 09/23/23 Did you have a dental visit in the last 12 months?: Yes Did you have a dental problem in the last 6 months where you did not have access to dental care?: No Was dental information given to patient?: Patient has dentist HPI f/u echocardiogram for systolic aortic murmur HPI Details 68 y/o male presents to f/u echocardiogram for systolic aortic murmur. Echocardiogram ordered for 01/31 murmur shows moderate aortic stenosis and I referred him to Cardiology. He denies any chest pain. He reports thanksgiving night he did have significantly high sugars in the 500s after dinner and states he had been worried about this. He states he does have an appt. with Endocrinology the beginning of August. He states blood sugars have been down to reasonable numbers. HPI Comments History of Present Illness Details Documentation assistance for Anoop Hammonds MD, was provided by Eddie Winkler,? Grid Molder on 09/23/2023 10:18 AM EST. I, Dr. Hammonds, have read, observed, and verified documentation.? PFSH Medical History Murmur Elevated cholesterol HTN (hypertension) Diabetes Prolapsed hemorrhoids Surgical History H/O hemorrhoidectomy Hx of shoulder surgery Hx of total ankle replacement Family History Father Lung cancer Brother Cardiac defibrillator in place Diabetes Brother Cardiac defibrillator in place Diabetes Brother No known health problems Brother No known health problems Mother Diabetes Housing: House Patient Tobacco Use Status: Never used Tobacco e-Cigarette/Vaping Use: Never Used Second Hand Smoke Exposure: No service: No Current occupational status: retired Current occupational exposures/hazards: No Cognitive needs: No Hearing needs: No Vision needs: No Questionnaire PHQ-9 Over the last 2 weeks, how often have you been bothered by any of the following problems? 1. Little interest or pleasure in doing things: not at all 2. Feeling down, depressed, or hopeless: not at all 3. Trouble falling or staying asleep, or sleeping too much: not at all 4. Feeling tired or having little energy: not at all 5. Poor appetite or overeating: not at all 6. Feeling bad about yourself - or that you are a failure or have let yourself or your family down: not at all 7. Trouble concentrating on things, such as reading the newspaper or watching television: not at all 8. Moving or speaking so slowly that other people could have noticed. Or the opposite - being so fidgety or restless that you have been moving around a lot more than usual: not at all 9. Thoughts that you would be better off or of hurting yourself in some way: not at all Total score: 0 Source: Developed by Drs. Kayden Ibarra, Marce Phelan, Sean Arciniega and colleagues, with an educational emerald from [email or web address]. Thrive Questionnaire Date Thrive assessed: 11/28/21 AUDIT C Alcohol Use Questionnaire (AUDIT-C) 1. How often do you have a drink containing alcohol?: 2-3 times a week 2. How many drinks containing alcohol do you have on a typical day when you are drinking?: 1 or 2 3. How often do you have six or more drinks on one occasion?: Never Total Score: 3 AUTUMN-7 AMB Questionnaire AUTUMN-7 Date ATUUMN - 7 assessed: 03/08/22 Feeling nervous, anxious, or on edge: 0 = Not at all Not being able to stop or control worryin = Not at all Worrying too much about different things: 0 = Not at all Trouble relaxin = Not at all Being so restless that it is hard to sit still: 0 = Not at all Becoming easily annoyed or irritable: 0 = Not at all Feeling afraid as if something awful might happen: 0 = Not at all Total AUTUMN-7 score (0-4 normal; 5-9 mild; 10-14 moderate; 15-21 severe): 0 Source: Developed by Drs. Kayden Ibarra, Marce Phelan, Sean Arciniega and colleagues, with an educational emerald from [email or web address]. Review of Systems Const Denies chills, Denies fatigue, Denies fever(s), Denies headache(s) and Denies weakness ENT Denies dizziness and Denies headache(s) Card Denies dyspnea Resp Denies cough, Denies dyspnea, Denies wheezing and Denies other (shortness of breath) Musc Denies numbness and Denies tingling Neuro Denies dizziness, Denies headache(s), Denies numbness, Denies tingling and Denies weakness Psych Denies anxiety and Denies depression Endo Denies fatigue Aller/Immun Denies wheezing Physical exam (Primary Care) Vital Signs: Last Vital Signs Pulse 83 09/23/23 09:32 BP 120/72 09/23/23 09:32 Pulse Ox 98 09/23/23 09:32 Oxygen Delivery Method Room Air 09/23/23 09:32 BMI result Body Mass Index 29.4 Tobacco/Smoking Status: Tobacco use Status Tobacco use date assessed 09/23/23 09/23/23 09:41 Patient Tobacco Use Status Never used Tobacco 09/23/23 09:38 e-Cigarette/Vaping Use Never Used 09/23/23 09:38 PHQ-9: PHQ-9 Score PHQ-9: Total score 0 09/23/23 10:18 Thrive Assessment: Date of Thrive Assessment Date Thrive assessed 11/28/21 09/23/23 09:38 Const General: well developed; No acute distress Nutritional Appearance: well nourished Orientation/consciousness: patient oriented x3 HENMT Head: Yes normocephalic and Yes atraumatic Eyes General: appearance normal, both eyes and all related structures Pupils: Equal, round and reactive pupils present EOM: EOMs intact bilaterally Resp Effort & Inspection: normal respiratory effort Auscultation: clear to auscultation bilaterally Cardio Rate: regular rate Rhythm: regular rhythm Heart sounds: S1 normal heart sound present, S2 normal heart sound present, no gallops, Murmur heart sound present and no rubs Neuro General: patient oriented x3 and gait normal Cranial nerves: Yes Equal, round and reactive pupils present Psych Affect: normal affect Office Procedures EKG [id number], Complete Assessment and Plan Assessment & Plan (1) Aortic stenosis, moderate: Code(s): I35.0 - Nonrheumatic aortic (valve) stenosis Plan: Moderate?aortic?stenosis There is moderate calcification of the aortic valve. There is moderate aortic valve stenosis. The peak aortic gradient is 42 mmHg.The mean gradient is 26 mmHg. EKG?shows?normal?sinus?rhythm?with?nonspecific?T-wave?abnormality. Referred?to?Cardiology (2) Poorly controlled type 2 diabetes mellitus: Code(s): E11.65 - Type 2 diabetes mellitus with hyperglycemia Plan: Blood?sugars?over?Thanksgiving?holiday?were?over?500?or?unreadable?on?his?meter. He?temporarily?increased?his?Lantus?to?40?units?daily He?increased?his?hydration?and?exercise. Blood?sugars?more?recently?have?improved?again?and?he?is?back?to?baseline?dose?of?Lantus; 30?units?daily Encouraged?him?to?continue?working?on?a?diet?lower?in?sugars?and?starches Follow-up?with??Tino. Orders: Orders AMB EKG-In Office Today R00.2 - Palpitations Coding Level of Care Code Est Pt Level 3 (35814) Diagnoses Aortic stenosis, moderate I35.0 Poorly controlled type 2 diabetes mellitus E11.65 CPT Codes EKG - CPT: 39889-[id number], Complete ([id number])
[2023-09-23 09:32] VITALS: BP 120/72; PULSE 83; O2SAT 98; BMI 29.4
== END 2023-09-23 10:33 | disposition home or self-care (01) ==
PROVIDERS: PCP Family Medicine; Visit Provider Family Medicine
DX: I35.0 Nonrheumatic aortic (valve) stenosis (principal); E11.65 Type 2 diabetes mellitus with hyperglycemia
CPT/HCPCS: 93000; 99213

== ENCOUNTER 2023-10-03 13:51 | Outpatient (AMB) | payer MEDICARE, SELFPAY ==
[2023-10-03 14:10] VITALS: BP 138/80; PULSE 80; BMI 29.2
--- NOTE | 2023-10-03 14:10 | A.OFFVIS_ITS ---
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 Required: No Allergies red dye Allergy (Verified 09/23/23 09:36) Itchy Eyes Medication List - Last Reconciled 10/03/23 by Michael Rubio MD aspirin (Adult Low Dose Aspirin) 81 mg PO DAILY blood sugar diagnostic (eSecure Systemsuch Verio test strips) As directed 2 times a day, 90 days blood-glucose meter (FinjanTouch Verio Reflect Meter) USE TO TEST THREE TIMES DAILY(FREESTYLE NOT COVERED) dulaglutide (Trulicity) 1.5 mg (0.5 mL) subcut QWEEK flash glucose scanning reader (KiwiTechStyle Ashley 2 [place]) As directed flash glucose sensor (FreeStyle Ashley 2 Sensor kit) As directed insulin glargine (Lantus Solostar U-100 Insulin) 34 units (0.34 mL) subcut QPM 30 days lancets (eSecure Systemsuch Delica Plus Lancet) USE TO TEST THREE TIMES DAILY(FREESTYLE NOT COVERED) lisinopril 20 mg PO DAILY 90 days lorazepam 0.5 mg PO BID PRN 2 days metformin 1,000 mg (2 x 500 mg) PO BID 90 days pen needle, diabetic (BD Ultra-Fine Micro Pen Needle) Daily As directed to treat high blood sugar, 90 days simvastatin 80 mg PO BEDTIME 90 days HPI HPI Comments History of Present Illness Details Thank you for referring Hugo in cardiology consultation today for management of aortic stenosis. He is a pleasant 68-year-old male who is very active and denies any clear symptoms of exertional chest pain or shortness of breath. He said he has had a murmur for about 20 years and more recently on your recommendations due to increasing murmur intensity underwent echocardiogram which showed moderate aortic stenosis with normal LV systolic function without any regional wall motion abnormality. He denies any symptoms of exertional shortness of breath, chest pain lightheadedness. He denies any heart failure symptoms. He says blood pressure is generally well controlled. His LDL is well controlled on current statin therapy. He said his last hemoglobin A1c was 7.4% is working on getting that better. He said he cannot exercise on a treadmill due to right ankle injury in the past although he does go to bike and can bike up to 10 miles. Has very strong family history of coronary artery disease with his 2 older brothers both having what appears to be ischemic cardiomyopathy and defibrillator placement with prior multiple PCIs. He said he had a stress test about 5 years ago which was unremarkable. Do not have the records about the same. [facility] Medical History Murmur Elevated cholesterol HTN (hypertension) Diabetes Prolapsed hemorrhoids Surgical History H/O hemorrhoidectomy Hx of shoulder surgery Hx of total ankle replacement Family History Father Lung cancer Brother Cardiac defibrillator in place Diabetes Brother Cardiac defibrillator in place Diabetes Brother No known health problems Brother No known health problems Mother Diabetes Social History Housing: House Patient Tobacco Use Status: Never used Tobacco e-Cigarette/Vaping Use: Never Used Second Hand Smoke Exposure: No service: No Current occupational status: retired Current occupational exposures/hazards: No Cognitive needs: No Hearing needs: No Vision needs: No Review of Systems Const Denies chills, Denies daytime sleepiness, Denies fatigue, Denies fever(s), Denies frequent falls, Denies poor appetite, Denies snoring, Denies stops breathing during sleep, Denies weakness, Denies weight gain and Denies weight loss Eyes Denies loss of vision ENT Denies dizziness and Denies hearing loss Card Denies chest pain, Denies claudication, Denies leg edema, Denies lightheadedness, Denies palpitations, Denies dyspnea, Denies dyspnea on exertion and Denies orthopnea Resp Denies cough, Denies excessive phlegm production, Denies dyspnea, Denies dyspnea on exertion, Denies snoring and Denies wheezing GI Denies abdominal pain, Denies hematochezia, Denies change in bowel habits, Denies nausea and Denies vomiting Denies dysuria and Denies urinary frequency Musc Denies arthralgias, Denies muscle weakness, Denies numbness and Denies other (frequent falls) Skin/Breast Denies nail changes and Denies rash Neuro Denies Abnormal speech present, Denies dizziness, Denies frequent falls, Denies loss of vision, Denies memory loss, Denies numbness and Denies weakness Psych Denies depression and Denies memory loss Endo Denies fatigue and Denies palpitations Kael/Lymph Reports easy bruising and Reports other (anemia) Aller/Immun Denies wheezing Physical Exam Vital Signs: Last Vital Signs Pulse 80 10/03/23 14:10 BP 138/80 10/03/23 14:10 BMI result Body Mass Index 29.2 Const General: cooperative, comfortable, no acute distress, well developed, alert, awake, Physically active and well groomed Nutritional Appearance: average body habitus Orientation/consciousness: patient oriented x3 Limitations: no limitations HEENT Head: Yes normocephalic and Yes atraumatic Neck Neck: Yes trachea midline, Yes supple and Yes no JVD Resp Effort & Inspection: normal respiratory effort Auscultation: clear to auscultation bilaterally Cardio Jugular venous distension: no JVD Palpation: normal PMI Rate: regular rate Rhythm: regular rhythm Heart sounds: S1 normal heart sound present, S2 normal heart sound present, no click, no gallops and Murmur heart sound present systolic mid, decrescendo, crescendo and at the base GI Auscultation: normal bowel sounds Skin General skin exam: no rashes or lesions noted Neuro General: patient oriented x3 and no focal motor deficits Speech: No Abnormal speech present Extrem General: Yes no clubbing, cyanosis or edema Office Procedures EKG Details: EKG shows normal sinus rhythm with T-wave inversion inferior leads which could represent ischemia or repolarization abnormality [id number], Complete Assessment & Plan Assessment & Plan (1) Aortic stenosis, moderate: Code(s): I35.0 - Nonrheumatic aortic (valve) stenosis Plan: Calcific moderate aortic stenosis in this elderly gentleman with multiple risk factors for vascular disease. The valve was not visualized as to bicuspid aortic valve. Possibility that this could be related to underlying vascular risk factors by itself. Management of aortic stenosis were discussed. Gradual progressive nature of aortic stenosis and pathophysiology aortic stenosis were discussed cardinal symptoms associated with aortic stenosis were discussed. Continue aggressive medical treatment at this point time including low-dose aspirin therapy. His LDL is well optimized blood pressure is well optimized. Advised to call me with any new symptoms. Follow up in the clinic in 6 months time. (2) Abnormal EKG: Code(s): R94.31 - Abnormal electrocardiogram [ECG] [EKG] Plan: Abnormal EKG which could represent myocardial ischemia there is likelihood of silent myocardial ischemia in patients with diabetes. He has multiple risk factors in good functional status although given his abnormal EKG and strong family history as well as multiple risk factors with suggest to evaluate for myocardial ischemia with exercise myocardial perfusion imaging. This test will be scheduled in near future. Further treatment based on the finding. He already has coronary artery disease equivalent with underlying diabetes and aggr essive medical treatment will be pursued as currently receiving. Follow up in the clinic in 6 months time, sooner p.r.n.. Thank you for allowing me to partake in his care Orders: Orders NM cardiolite stress test 2 Weeks I35.0 - Nonrheumatic aortic (valve) stenosis, R07.9 - Chest pain, unspecified CA stress test Today I35.0 - Nonrheumatic aortic (valve) stenosis Coding Level of Care Code New Pt Level 4 (89956) Diagnoses Aortic stenosis, moderate I35.0 Abnormal EKG R94.31 CPT Codes EKG - CPT: 75822-[id number], Complete ([id number])
== END 2023-10-03 14:55 | disposition home or self-care (01) ==
PROVIDERS: PCP Family Medicine; Visit Provider Internal Medicine Cardiovascular Disease
DX: I35.0 Nonrheumatic aortic (valve) stenosis (principal); R94.31 Abnormal electrocardiogram [ECG] [EKG]
CPT/HCPCS: 93010; 99214

== ENCOUNTER → 2023-10-03 13:51 | Outpatient (BNVA) | payer MEDICARE, SELFPAY | PROVIDERS: PCP Family Medicine; Visit Provider Internal Medicine Cardiovascular Disease | DX: I35.0 Nonrheumatic aortic (valve) stenosis (principal); R94.31 Abnormal electrocardiogram [ECG] [EKG] | CPT/HCPCS: 93005; 99212 ==

== ENCOUNTER 2023-10-15 08:57 | Outpatient (AMB) | payer MEDICARE, SELFPAY ==
--- NOTE | 2023-10-15 08:58 | A.OFFVIS_ITS ---
Intake Vital Signs 10/15/23 09:00 Height 5 ft 8 in Weight 193 lb 9.054 oz BMI 29.4 BP 132/72 Blood Pressure Location Rt brachial Position Sitting Pulse 73 Pulse Source Pulse Oximeter Intake Visit Reasons: f/u Type 2 DM-CONFIRMED Intake Note: Patient present today to follow up on Type 2 Diabetes Mellitus. Patient receives DME supplies through: Pharmacy Last Diabetic Eye exam: 07/25/2023 Last Podiatry Visit: Does not see a Packaging Line Attendant Random Glucose: 243 mg/dl HgA1C: 7.1% 08/08/23 Patient reports taking Vitamin C, D, and Preser Vision Areds, he stated he is unsure of the dosage to these. Parking Meter Attendant Required: No Accompanied by: Self / Same As Patient Allergies red dye Allergy (Verified 10/15/23 09:03) Itchy Eyes HPI HPI Comments History of Present Illness Details 67 YO M who is seen in consultation for T2DM at the request of PCP. Initially diagnosed with T2DM in 10 yrs - saw endo at [facility] in distant past Was initially started on treatment with metformin .Took Humalog in past Current regimen Lantus 34 units . Metformin 1000 mg BID Trulicty 1.5 mg Qkly Ashley download shows she is using the sensor is 94% of the time. Average glucose is 232 with G mi of 8.9 %. Variability is 30.6%. 23 % range with 77% hyperglycemia and no hypoglycemia. Pattern shows decreasing point cares overnight with elevation after breakfast . Reports low sugars rarely . Most recent A1C 7.1 on 08/08/2023, . Family history of T2DM in mother, brothers, auunts and uncles . Has eyes checked yearly, last eye exam 07/2023 , denies retinopathy. Denies neuropathy, Not sees podiatry. Denies nephropathy, on TERESA/ARB. . Has HLD, on statin. . Denies CAD. Had diabetes education [facility] Medical History Murmur Elevated cholesterol HTN (hypertension) Diabetes Prolapsed hemorrhoids Surgical History H/O hemorrhoidectomy Hx of shoulder surgery Hx of total ankle replacement Family History Father Lung cancer Brother Cardiac defibrillator in place Diabetes Brother Cardiac defibrillator in place Diabetes Brother No known health problems Brother No known health problems Mother Diabetes Social History Housing: House Patient Tobacco Use Status: Never used Tobacco e-Cigarette/Vaping Use: Never Used Second Hand Smoke Exposure: No service: No Current occupational status: retired Current occupational exposures/hazards: No Cognitive needs: No Hearing needs: No Vision needs: No Physical Exam Vital Signs: BMI result Body Mass Index 29.4 Assessment & Plan Assessment & Plan (1) Diabetes: Code(s): E11.9 - Type 2 diabetes mellitus without complications Plan: This is a 68-year-old white male with a history of type 2 diabetes being treated with glipizide and basal insulin with poor glycemic control and no known microvascular or macrovascular complications. The plan is to decrease Lantus to 20 units and either talk to the patient about either switching the Trulicity to Mounjaro or adding 7 units of Humalog before breakfast. Will switch Trulicity to Mounjaro 2.5 mg Qwkly and titrate as tolerated. 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 Mounjaro 2.5 mg samples given the patient lot number [id number] C expiration date 03/03/2025 Medications: New insulin lispro (Humalog KwikPen (U-100) Insulin) 7 units (0.07 mL) subcut QAM 15 mL 4RF tirzepatide (Mounjaro) 2.5 mg (0.5 mL) subcut QWEEK 4 weeks 2 mL 4RF Discontinued dulaglutide (Trulicity) Discontinued Reason: Doctor's Order 1.5 mg (0.5 mL) subcut QWEEK 2 mL 0RF Coding Level of Care Code Est Pt Level 4 (25537) Diagnoses Diabetes E11.9
[2023-10-15 09:00] VITALS: BP 132/72; PULSE 73; BMI 29.4
[2023-10-15 09:17] LABS: Glucose, Whole Blood 243 mg/dL (60-115)
== END 2023-10-15 09:44 | disposition home or self-care (01) ==
PROVIDERS: PCP Family Medicine; Visit Provider Internal Medicine Endocrinology, Diabetes & Metabolism
DX: E11.9 Type 2 diabetes mellitus without complications (principal)
CPT/HCPCS: 99214

== ENCOUNTER → 2023-10-15 08:57 | Outpatient (BNVA) | payer MEDICARE, SELFPAY | PROVIDERS: PCP Family Medicine; Visit Provider Internal Medicine Endocrinology, Diabetes & Metabolism | DX: E11.9 Type 2 diabetes mellitus without complications (principal) | CPT/HCPCS: 82947; 99212 ==

== ENCOUNTER → 2023-11-20 08:28 | Outpatient (REF) | payer MEDICARE, SELFPAY ==
--- NOTE | ~2023-11-20 | NM_ITS ---
EXERCISE MYOCARDIAL PERFUSION STUDY INDICATION: Abnormal EKG, assess for coronary disease and ischemia TECHNIQUE: The patient was brought in for an exercise perfusion study on 11/20/2023. Patient performed exercise as per Raffaele protocol and was injected 30 mCi of sestamibi once target heart rate was achieved. Images were obtained using the SPECT gamma camera interlaced with the gating device. Images were obtained in supine position. Resting perfusion study was performed on 11/21/2023. Patient was administered 30 mCi of sestamibi intravenously at rest. Images were then obtained in supine position. Images were processed with the software and compared side to side in short axis, horizontal long axis and vertical long axis views. Total DLP 155mGy-cm. FINDINGS: Raw images were reviewed. Arms by the patient's side. The stress perfusion study showed diminished tracer uptake in the anterolateral wall. This persists with CT attenuation correction and hence could indicate true defect. The gated study shows diminished LV systolic function with calculated LVEF of 37%. LV cavity is normal in size. The gated study shows normal wall thickening and contraction of segments. Resting study shows no significant perfusion abnormality. Gating at rest reveals normal wall motion with ejection fraction at 42%. The findings are consistent with reversible moderate intensity perfusion defect in the anterolateral wall. NM/NM cardiolite stress test IMPRESSION: 1. Myocardial perfusion imaging study shows moderate ischemia of the anterolateral wall. 2. Gated LVEF is 37% during stress and 42% during rest but visually appears higher. Correlate with echocardiogram. 3. Transient ischemic dilatation ratio 0.8. EKG component of the test reported separately.
--- NOTE | 2023-11-20 08:39 | CA_ITS ---
Acquisition Time: 2023-11-20 08:46:39 Total Exercise Time: 00:07:16 Test Indications: ABN EKG Medications: SEE H Protocol: ADDIE Max HR: 137 BPM 89% of Pred: 153 BPM Max BP: 160/090 mmHG Max Work Load: 8.9 METS Exercise stress test exercise 7 min 16 sec of Addie protocol achieving 87% MPHR, without anginal symptoms, without arrhythmias, with resting HTN, normotensive response to exericse, with downsloping leads 2, aVF, aVR V3-V6. Nuclear images pending. Test reviewed with Dr. Hahn Referred By: Michael Rubio Overread By: Bessie Martinez
== END ==
LOC: HO.CARD 08:28
PROVIDERS: PCP Family Medicine; Visit Provider Internal Medicine Cardiovascular Disease
DX: R07.9 Chest pain, unspecified (principal); I35.0 Nonrheumatic aortic (valve) stenosis
CPT/HCPCS: 78452; 93017; A9500

== ENCOUNTER → 2023-11-20 08:39 | Outpatient (BNV) | payer MEDICARE, SELFPAY | PROVIDERS: PCP Family Medicine; Visit Provider Nurse Practitioner | DX: I25.10 Atherosclerotic heart disease of native coronary artery without angina pectoris (principal) | CPT/HCPCS: 78452; 93016; 93018 ==

== ENCOUNTER 2023-12-11 10:37 | Outpatient (AMB) | payer MEDICARE, SELFPAY ==
[2023-12-11 10:43] VITALS: BP 130/70; PULSE 92; O2SAT 97; BMI 23.5
--- NOTE | 2023-12-11 10:43 | MHC.PC.OV ---
Vital Signs 12/11/23 10:43 Height 5 ft 8 in Weight 154 lb 6 oz BMI 23.5 BP 130/70 Blood Pressure Location Lt brachial Position Sitting Pulse 92 Pulse Source Pulse Oximeter Pulse Oximetry (%) 97 Oxygen Delivery Method Room Air Intake Visit Reasons: f/u hypertension and diabetes Intake Note: Patient is here to follow up on hypertension and diabetes, and results of stress test. Allergies red dye Allergy (Verified 12/11/23 10:47) Itchy Eyes Tobacco use date assessed: 12/11/23 Fall risk assessment: No Falls in past year Last assessed Fall Risk: 12/11/23 Dental Screening Dental Screen Date: 12/11/23 Did you have a dental visit in the last 12 months?: Yes Did you have a dental problem in the last 6 months where you did not have access to dental care?: No Was dental information given to patient?: Patient has dentist HPI f/u hypertension and diabetes HPI Details 68 y/o male presents to f/u hypertension and diabetes. Blood pressure today 130/70. He is on lisinopril 20mg. Cardiolite stress test 11/21/23 shows moderate ischemia of the anterolateral wall. Diabetic eye exam in June which showed no diabetic retinopathy. A1c today 12/11/23 is 7.6%, which had worsened from 7.1% in July. He is on metformin 1000mg b.i.d, insulin glargine 34 units, Mounjaro 5mg. [facility] Medical History Murmur Elevated cholesterol HTN (hypertension) Diabetes Prolapsed hemorrhoids Surgical History H/O hemorrhoidectomy Hx of shoulder surgery Hx of total ankle replacement Family History Father Lung cancer Brother Cardiac defibrillator in place Diabetes Brother Cardiac defibrillator in place Diabetes Brother No known health problems Brother No known health problems Mother Diabetes Social History Housing: House Patient Tobacco Use Status: Never used Tobacco e-Cigarette/Vaping Use: Never Used Second Hand Smoke Exposure: No service: No Current occupational status: retired Current occupational exposures/hazards: No Cognitive needs: No Hearing needs: No Vision needs: No Questionnaire PHQ-9 Over the last 2 weeks, how often have you been bothered by any of the following problems? 1. Little interest or pleasure in doing things: not at all 2. Feeling down, depressed, or hopeless: not at all 3. Trouble falling or staying asleep, or sleeping too much: not at all 4. Feeling tired or having little energy: not at all 5. Poor appetite or overeating: not at all 6. Feeling bad about yourself - or that you are a failure or have let yourself or your family down: not at all 7. Trouble concentrating on things, such as reading the newspaper or watching television: not at all 8. Moving or speaking so slowly that other people could have noticed. Or the opposite - being so fidgety or restless that you have been moving around a lot more than usual: not at all 9. Thoughts that you would be better off or of hurting yourself in some way: not at all Total score: 0 Source: Developed by Drs. Kayden Ibarra, Marce Phelan, Sean Arciniega and colleagues, with an educational emerald from [employer]. Thrive Questionnaire Date Thrive assessed: 11/28/21 I am a: Patient What is your living situation today?: I have a steady place to live Within the past 12 months, did the food you bought not last and you didn't have the money to get more?: Never true Within the past 12 months, did you worry whether your food would run out before you got money to buy more?: Never true Do you have trouble paying for medicines?: No Do you have trouble getting transportation to medical appointments?: No Do you have trouble paying your heating and electricity bill?: No Do you have trouble taking care of your child, family member or friend?: No Do you have trouble with day-to-day activities such as bathing, preparing meals, shopping, managing finances, etc.?: No Are you currently unemployed and looking for a job?: No Are you interested in more education?: No THRIVE Score: 0 AUDIT C Alcohol Use Questionnaire (AUDIT-C) 1. How often do you have a drink containing alcohol?: 2-3 times a week 2. How many drinks containing alcohol do you have on a typical day when you are drinking?: 3 or 4 3. How often do you have six or more drinks on one occasion?: Less than monthly Total Score: 5 AUTUMN-7 AMB Questionnaire AUTUMN-7 Date AUTUMN - 7 assessed: 12/11/23 Feeling nervous, anxious, or on edge: 0 = Not at all Not being able to stop or control worryin = Not at all Worrying too much about different things: 0 = Not at all Trouble relaxin = Not at all Being so restless that it is hard to sit still: 0 = Not at all Becoming easily annoyed or irritable: 0 = Not at all Feeling afraid as if something awful might happen: 0 = Not at all Total AUTUMN-7 score (0-4 normal; 5-9 mild; 10-14 moderate; 15-21 severe): 0 Source: Developed by Drs. Kayden Ibarra, Marce Phelan, Sean Arciniega and colleagues, with an educational emerald from [employer]. Review of Systems Const Denies chills, Denies fatigue, Denies fever(s), Denies headache(s) and Denies weakness ENT Denies dizziness and Denies headache(s) Card Denies chest pain, Denies lightheadedness, Denies dyspnea and Denies other (Palpitations) Resp Denies cough, Denies dyspnea, Denies wheezing and Denies other ( shortness of breath) Musc Denies numbness and Denies tingling Neuro Denies dizziness, Denies headache(s), Denies numbness, Denies tingling, Denies paresthesias and Denies weakness Psych Denies anxiety and Denies depression Endo Denies fatigue Aller/Immun Denies wheezing Physical exam (Primary Care) Vital Signs: Last Vital Signs Pulse 92 12/11/23 10:43 BP 130/70 12/11/23 10:43 Pulse Ox 97 12/11/23 10:43 Oxygen Delivery Method Room Air 12/11/23 10:43 BMI result Body Mass Index 23.5 Tobacco/Smoking Status: Tobacco use Status Tobacco use date assessed 12/11/23 12/11/23 11:01 Patient Tobacco Use Status Never used Tobacco 12/11/23 11:01 e-Cigarette/Vaping Use Never Used 12/11/23 11:01 PHQ-9: PHQ-9 Score PHQ-9: Total score 0 12/11/23 11:01 Thrive Assessment: Date of Thrive Assessment Date Thrive assessed 11/28/21 12/11/23 11:01 Const General: no acute distress and well developed Nutritional Appearance: well nourished Orientation/consciousness: patient oriented x3 HENVT Head: Yes normocephalic and Yes atraumatic Eyes General: appearance normal, both eyes and all related structures Pupils: Equal, round and reactive pupils present EOM: EOMs intact bilaterally Resp Effort & Inspection: normal respiratory effort Auscultation: clear to auscultation bilaterally Cardio Rate: regular rate Rhythm: regular rhythm Heart sounds: S1 normal heart sound present, S2 normal heart sound present, no gallops, no murmurs and no rubs Neuro General: patient oriented x3 and gait normal Cranial nerves: Yes Equal, round and reactive pupils present Psych Affect: normal affect Results AMB Hemoglobin A1c AMB Hemoglobin A1c 7.6 % Last Edit by Sharon Islas CMA on 12/11/23 11:38 Assessment and Plan Assessment & Plan (1) Essential hypertension: Code(s): I10 - Essential (primary) hypertension Plan: Blood?pressure?is?controlled.??Goal?is?less?than?130/80 Continue?current?medications (2) Diabetes: Code(s): E11.9 - Type 2 diabetes mellitus without complications Plan: A1c?has?worsened?from?7.1%?to?7.6%. Goal?is?less?than?7.0% He?was?recently?switched?from?Trulicity?to?Mounjaro?due?to difficulty?with?Trulicity?supply However,?patient?notes?that?his?control?has?been?worse. He?also?notes?that?the?Mounjaro?is?not?covered?by?his?insurance?and?is?costing?him?more?than?he?can?afford. He?has?an?upcoming?appointment?with?nutrition?at?endocrinology. Recommended?he?also?call?and?discuss?Mounjaro?with?his?mainframe software developer (3) Aortic stenosis, moderate: Code(s): I35.0 - Nonrheumatic aortic (valve) stenosis Plan: Aortic?stenosis?is?stable?and?he?is?now?followed?by?cardiology Evaluation?prompted?investigation?of?coronary?artery?disease. Myocardial?perfusion?imaging?shows?anterior?wall?ischemia.??Patient?has?no?symptoms. He?is?now?scheduled?for?coronary?angiography (4) Hyperlipidemia: Code(s): E78.5 - Hyperlipidemia, unspecified Plan: Lipids?are?controlled?with?simvastatin Continue?current?medication (5) Coronary artery disease: Code(s): I25.10 - Atherosclerotic heart disease of [place] coronary artery without angina pectoris Plan: As?above?control?blood?pressure?lipids?and?blood?sugar Follow-up?with?Cardiology.??Angiography?is?scheduled Medications: Changed From insulin glargine (Lantus Solostar U-100 Insulin) 34 units (0.34 mL) subcut QPM 30 days 12 mL 3RF E11.9 - Type 2 diabetes mellitus without complications To insulin glargine (Lantus Solostar U-100 Insulin) 34 units (0.34 mL) subcut QPM 90 days 36 mL 3RF E11.9 - Type 2 diabetes mellitus without complications Coding Level of Care Code Est Pt Level 4 (73306) Diagnoses Essential hypertension I10 Diabetes E11.9 Aortic stenosis, moderate I35.0 Hyperlipidemia E78.5 Coronary artery disease I25.10
== END 2023-12-11 11:37 | disposition home or self-care (01) ==
PROVIDERS: PCP Family Medicine; Visit Provider Family Medicine
DX: I10 Essential (primary) hypertension (principal); E11.69 Type 2 diabetes mellitus with other specified complication; I35.0 Nonrheumatic aortic (valve) stenosis; E78.5 Hyperlipidemia, unspecified; I25.10 Atherosclerotic heart disease of native coronary artery without angina pectoris
CPT/HCPCS: 83036; 99214

== ENCOUNTER 2023-12-17 08:53 | Outpatient (AMB) | payer MEDICARE, SELFPAY ==
--- NOTE | 2023-12-17 08:57 | MHC.AMNUTRGE ---
Intake VS Expanded 12/17/23 08:58 Height 5 ft 8 in Weight 191 lb 9.307 oz BMI 29.1 Intake Visit Reasons: DM2/LVM Allergies red dye Allergy (Verified 12/11/23 10:47) Itchy Eyes HPI Nutrition Presentation Details Pt presents for MNT for T2DM Pt reports doing well however blood glucose is elevated. Pt reports taking Mounjaro 5 mg weekly, Lantus 35 units/d and not taking humalog (has rx for 7 units before breakfast) , metformin 1000 mg BID. Pt reports difficulties with expense of Mounjaro however reports he wants to discuss this with Dr. Jiménez at the next f/u in 01/2024. Pt reports having enough Mounjaro until 02/2024 (d/t 3 months supply) Pt reports having 3 meals per day working on reducing sugary foods B: banana and peanut butter with glass of milk/coffee L: sandwich (ham/cheese) chips or apple, water D: hot dog and beans , cookies , water . snack: cookies and milk or yogurt or cheese and crackers fruits: 2/day veg: salad 2 -3 times/wk pastries: daily water 46 oz/d + milk Physical activity: daily life activities 14 D BG average 28% wnl , 45% 181, 36% above 250 14 d bg average at 203 mg/dl Most Recent Diabetes Results: Microalb/Creat Ratio 21.1 ug/mg cr (<30) 08/06/23 Cholesterol 130 mg/dL (<200) 08/06/23 HDL Cholesterol 47 mg/dL (>40) 08/06/23 Triglycerides 106 mg/dL (<150) 08/06/23 Creatinine 0.98 mg/dL (0.5-1.4) 08/06/23 Blood Urea Nitrogen 15 mg/dL (9-16) 08/06/23 Sodium 141 mmol/L (135-145) 08/06/23 Potassium 4.2 mmol/L (3.3-5.1) 08/06/23 Chloride 106 mmol/L (96-108) 08/06/23 Carbon Dioxide 24 mmol/L (22-29) 08/06/23 Calcium 9.2 mg/dL (8.4-10.2) 08/06/23 AST 23 U/L (5-37) 08/06/23 ALT 21 U/L (0-40) 08/06/23 Total Protein 6.9 g/dL (6.5-8.0) 08/06/23 Albumin 4.1 g/dL (3.5-5.0) 08/06/23 REPLACED BY [facility] Medical History Murmur Elevated cholesterol HTN (hypertension) Diabetes Prolapsed hemorrhoids Surgical History H/O hemorrhoidectomy Hx of shoulder surgery Hx of total ankle replacement Family History Father Lung cancer Brother Cardiac defibrillator in place Diabetes Brother Cardiac defibrillator in place Diabetes Brother No known health problems Brother No known health problems Mother Diabetes Social History Housing: House Patient Tobacco Use Status: Never used Tobacco e-Cigarette/Vaping Use: Never Used Second Hand Smoke Exposure: No service: No Current occupational status: retired Current occupational exposures/hazards: No Cognitive needs: No Hearing needs: No Vision needs: No Assessment & Plan Assessment & Plan (1) Poorly controlled type 2 diabetes mellitus: Code(s): E11.65 - Type 2 diabetes mellitus with hyperglycemia Plan: Review role of fiber in diet. ? Used wt : 87 kg Est kcal as per MSJ: 2200 (40% carb, 30% fat/prot) Est fluid needs: 2225 ml/d (25 ml/kg bw) Rec fiber: increase to 8-10 g per day and gradually increase to 35 g or as tolerated Rec Na: < 2000 mg /d Educate patient on: (R= Reviewed, V = verbalizes understanding N/R= Needs review N/A= not applicable) Food sources of carbohydrates and serving adequate serving sizes : R ,V Difference between complex carbohydrates and simple carbohydrates, role of fiber: R ,V Differences between fats (MUFA/PUFA/saturated fats, trans fats) and food sources of various fats: R Food sources of sodium and salt and healthy modifications for heart health and kidney health: N/R Vitamins and minerals: R How to interpret food labels: R Healthy Plate method concept: R,V Physical activity: benefits and precaution: R,V prevention and treatment of hypoglycemia: R,V Patient Instructions: Include fiber rich foods in your diet, add at least 6 g /day (1 scoop of fiber supplement, 1 cup of bran flakes, 1/2 cup of beans , 1 cup of carrots /broccoli ) Keep hydrated by having water with meals and snacks Take DM meds as prescribed by your doctor, call receiving room clerk if developing low blood sugar (blood sugar less than 70) or if continuing with blood sugar elevated 2 hours after meals (greater than 180 , 2 hour after meals) for further assessment. Coding Level of Care Code Nutr Indiv Subseq (97433) Diagnoses Poorly controlled type 2 diabetes mellitus E11.65 Time Spent (min) 30
[2023-12-17 08:58] VITALS: BMI 29.1
== END 2023-12-17 09:23 | disposition home or self-care (01) ==
PROVIDERS: PCP Family Medicine; Visit Provider Dietitian, Registered
DX: E11.65 Type 2 diabetes mellitus with hyperglycemia (principal)

== ENCOUNTER → 2023-12-17 08:53 | Outpatient (BNVA) | payer MEDICARE, SELFPAY | PROVIDERS: PCP Family Medicine; Visit Provider Dietitian, Registered | DX: E11.65 Type 2 diabetes mellitus with hyperglycemia (principal) | CPT/HCPCS: 97803 ==

== ENCOUNTER 2023-12-18 11:12 | Outpatient (AMB) | payer MEDICARE, SELFPAY ==
--- NOTE | 2023-12-18 11:19 | MHC.OFFWIV ---
Intake Vital Signs 12/18/23 11:24 Height 5 ft 8 in Weight 193 lb 6 oz BMI 29.4 Pulse 88 Pulse Source Pulse Oximeter Pulse Oximetry (%) 97 Oxygen Delivery Method Room Air Intake Visit Reasons: ? pink eye Intake Note: Patient reports L eye redness, pain, itching, sandpaper feeling x3 days. Patient Tobacco Use Status: Never used Tobacco Sap Administrator Required: No Allergies red dye Allergy (Verified 12/18/23 11:50) Itchy Eyes Medication List - Last Reconciled 12/18/23 by Judiht Buitrago, INTERNATIONAL ACCOUNTING MANAGER- aspirin (Adult Low Dose Aspirin) 81 mg PO DAILY blood sugar diagnostic ([place] [employer] [place] Verio test strips) As directed 2 times a day, 90 days blood-glucose meter ([employer] Verio Reflect Meter) USE TO TEST THREE TIMES DAILY(FREESTYLE NOT COVERED) flash glucose scanning reader (FreeStyle Ashley 2 [place]) As directed flash glucose sensor (FreeStyle Ashley 2 Sensor kit) USE DIRECTED insulin glargine (Lantus Solostar U-100 Insulin) 34 units (0.34 mL) subcut QPM 90 days insulin lispro (Humalog KwikPen (U-100) Insulin) 7 units (0.07 mL) subcut QAM lancets ([employer]Touch Delica Plus Lancet) USE TO TEST THREE TIMES DAILY(FREESTYLE NOT COVERED) lisinopril 20 mg PO DAILY 90 days lorazepam 0.5 mg PO BID PRN 2 days metformin 1,000 mg (2 x 500 mg) PO BID 90 days pen needle, diabetic (BD Ultra-Fine Micro Pen Needle) Daily As directed to treat high blood sugar, 90 days simvastatin 80 mg PO BEDTIME 90 days tirzepatide (Mounjaro) 5 mg (0.5 mL) subcut QWEEK Do you need a note to return to daycare/school/sports/work: No HPI HPI Comments History of Present Illness Details here today w/ concerns on pink eye sx started yesterday assoc w/ cold sx prior to onset; these have resolved affecting L eye feels scratchy, watery, crusted shut this AM washed w soap and h20 used wifes e-mycin oint x 1 this did help denies fever, chills, loss of vision, trauma to eye, headache UTD on DM eye exam PFSH Medical History Murmur Elevated cholesterol HTN (hypertension) Diabetes Prolapsed hemorrhoids Surgical History H/O hemorrhoidectomy Hx of shoulder surgery Hx of total ankle replacement Family History Father Lung cancer Brother Cardiac defibrillator in place Diabetes Brother Cardiac defibrillator in place Diabetes Brother No known health problems Brother No known health problems Mother Diabetes Social History Housing: House Patient Tobacco Use Status: Never used Tobacco e-Cigarette/Vaping Use: Never Used Second Hand Smoke Exposure: No service: No Current occupational status: retired Current occupational exposures/hazards: No Cognitive needs: No Hearing needs: No Vision needs: No Review of Systems Const All systems reviewed & are unremarkable except as noted in HPI and below Physical Exam Vital Signs: Last Vital Signs Pulse 88 12/18/23 11:24 Pulse Ox 97 12/18/23 11:24 Oxygen Delivery Method Room Air 12/18/23 11:24 BMI result Body Mass Index 29.4 Const Other: awake alert NAD atraumatic PERRLA, EOMI, conjunctival injection L with watery drainage. Mild periorbital erythema w/o warmth or edema. No photophobia. Assessment & Plan Assessment & Plan (1) Bacterial conjunctivitis of left eye: Code(s): H10.9 - Unspecified conjunctivitis Plan: . Medications: New polymyxin B sulf-trimethoprim 10,000 unit- 1 mg/mL APPLY TO BOTH EYES while awake; do not exceed 6 doses in 24 hours 1 drp ophthalmic (eye) QID 5 days 10 mL 0RF Patient Instructions: Put cold or warm wet cloths on your eye a few times a day if the eye hurts. Do not wear contact lenses or eye makeup until the pink eye is gone. Throw away any eye makeup you were using when you got pink eye. Clean your contacts and storage case. Wash bed linen after 24 hours of antibiotic eye drop use. Do not share eye drops. Use a clean towel to wash your face each day until symptoms are gone. This will help prevent recurrence. What is pink eye? [place] eye is a term people use to describe an infection or irritation of the eye. The medical term for pink eye is conjunctivitis. If you have pink eye, your eye (or eyes) might: ?Turn pink or red ?Weep or ooze a gooey liquid ?Become itchy or burn ?Get stuck shut, especially when you first wake up [place] eye can be caused by an infection, allergies, or an unknown irritation. Can you catch pink eye from someone else? Yes. When pink eye is caused by an infection, it can spread easily. Usually, people catch it from touching something that has been in contact with an infected person's eye. It can also be spread when an infected person touches someone else, and then that person touches their eye. If someone you know has pink eye, avoid touching their pillowcases, towels, or other personal items. When should I see a doctor or nurse? See your doctor or nurse if your eye hurts, or if you still have trouble seeing clearly after blinking. If you do not have these problems, but think you might have pink eye, your doctor or nurse might be able to give you advice over the phone. Can pink eye be treated? Most cases of pink eye go away on their own without treatment. But some types of pink eye can be treated. When pink eye is caused by infection, it is usually caused by a virus, so antibiotics will not help. Still, pink eye caused by a virus can last several days. ?[place] eye caused by an infection with bacteria can be treated with antibiotic eye drops, gel, or ointment. ?[place] eye caused by other problems can be treated with eye drops normally used to treat allergies. These drops will not cure the pink eye, but they can help with itchiness and irritation. When using eye drops for infection, do not touch your healthy eye after touching your infected eye. Also, do not touch the bottle or dropper directly onto 1 eye and then use it in the other. These things can cause the infection to spread from 1 eye to the other. If your eyelids feel swollen, it might also help to hold a cool wet cloth on the area. What if I wear contact lenses? If you wear contact lenses and you have symptoms of pink eye, it is really important to have a doctor look at your eyes. In people who wear contacts, the symptoms of pink eye can be caused by corneal abrasion. Corneal abrasion is a scratch on the eye and can be a serious problem. During treatment for eye infections, you might need to stop wearing your contacts for a short time. If your contacts are disposable, throw them away and use new ones. If your contacts are not disposable, you need to carefully clean them. You should also throw away your contact lens case and get a new one. When can I go back to work or school? If you have pink eye caused by an infection, remember that it can spread very easily. The best way to avoid spreading it is to stay away from other people until you no longer have symptoms. If this is not possible, wash your hands often (figure 1). It's also important to avoid touching your eyes and sharing items that could spread the infection. Schools and day cares usually have rules about when a child with pink eye can return. If a child has a bacterial infection, they will probably need to stay home until they have gotten antibiotic eye drops or ointment for 24 hours. Can pink eye be prevented? To keep from getting or spreading pink eye caused by an infection: ?Wash your hands often with soap and water. ?Try not to touch your eyes. ?Avoid sharing towels, bedding, or other personal items with a person who has pink eye. If your pink eye is caused by allergies, it might help to stay inside with the windows shut as much as possible during peak allergy seasons. What problems should I watch for? Call your doctor or nurse if: ?You have trouble seeing clearly after blinking. ?Your eye is still red or has drainage after 3 days. ?You have eye pain that is getting worse. Coding Level of Care Code Est Pt Level 3 (81907) Diagnoses Bacterial conjunctivitis of left eye H10.9
[2023-12-18 11:24] VITALS: PULSE 88; O2SAT 97; BMI 29.4
== END 2023-12-18 11:55 | disposition home or self-care (01) ==
PROVIDERS: PCP Family Medicine; Visit Provider Nurse Practitioner Family
DX: H10.9 Unspecified conjunctivitis (principal)
CPT/HCPCS: 99213

== ENCOUNTER 2024-02-12 08:29 | Outpatient (AMB) | payer MEDICARE, SELFPAY ==
[2024-02-12 08:31] VITALS: BP 120/78; PULSE 69; BMI 29.3
--- NOTE | 2024-02-12 08:31 | MHC.OFFVIS ---
Intake Vital Signs 02/12/24 08:31 Height 5 ft 8 in Weight 192 lb 10.944 oz BMI 29.3 BP 120/78 Blood Pressure Location Lt brachial Position Sitting Pulse 69 Pulse Source Pulse Oximeter Intake Visit Reasons: [id number] Intake Note: Patient presents today to follow up on D2MT. 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 Required: No Accompanied by: Self / Same As Patient Allergies red dye Allergy (Verified 02/12/24 08:37) Itchy Eyes Medication List - Last Reconciled 02/12/24 by Kayden Jiménez MD aspirin (Adult Low Dose Aspirin) 81 mg PO DAILY blood sugar diagnostic (BlackLight Poweruch Verio test strips) As directed 2 times a day, 90 days blood-glucose meter (Greenleaf TrustTouch Verio Reflect Meter) USE TO TEST THREE TIMES DAILY(FREESTYLE NOT COVERED) flash glucose scanning reader (FreeStyle Ashley 2 [place]) As directed flash glucose sensor (FreeStyle Ashley 2 Sensor kit) USE DIRECTED insulin glargine (Lantus Solostar U-100 Insulin) 34 units (0.34 mL) subcut QPM 90 days insulin lispro (Humalog KwikPen (U-100) Insulin) 7 units (0.07 mL) subcut QAM lancets (Greenleaf TrustTouch Delica Plus Lancet) USE TO TEST THREE TIMES DAILY(FREESTYLE NOT COVERED) lisinopril 20 mg PO DAILY 90 days lorazepam 0.5 mg PO BID PRN 2 days metformin 1,000 mg (2 x 500 mg) PO BID 90 days pen needle, diabetic (BD Ultra-Fine Micro Pen Needle) Daily As directed to treat high blood sugar, 90 days polymyxin B sulf-trimethoprim 10,000 unit- 1 mg/mL 1 drp ophthalmic (eye) QID 5 days simvastatin 80 mg PO BEDTIME 90 days tirzepatide (Mounjaro) 5 mg (0.5 mL) subcut QWEEK HPI HPI Comments History of Present Illness Details 68 YO M who is seen in consultation for T2DM at the request of PCP. Initially diagnosed with T2DM in 10 yrs - saw endo at [facility] in distant past Was initially started on treatment with metformin .Took Humalog in past Current regimen Lantus 34 units . Metformin 1000 mg BID Mounjaro 5 mg Qwkly Ashley download shows she is using the sensor is 92% of the time. Average glucose is 186 with G mi of 7.8 %. Variability is 26.5%. 45 % range with 55% hyperglycemia and no hypoglycemia. Pattern shows blood sugars trending downward overnight elevation after breakfast . Reports low sugars rarely . Family history of T2DM in mother, brothers, auunts and uncles . Has eyes checked yearly, last eye exam 07/2023 , denies retinopathy. Denies neuropathy, Not sees podiatry. Denies nephropathy, on TEERSA/ARB. . Has HLD, on statin. . Denies CAD. Had diabetes education [facility] Medical History Murmur Elevated cholesterol HTN (hypertension) Diabetes Prolapsed hemorrhoids Surgical History H/O hemorrhoidectomy Hx of shoulder surgery Hx of total ankle replacement Family History Father Lung cancer Brother Cardiac defibrillator in place Diabetes Brother Cardiac defibrillator in place Diabetes Brother No known health problems Brother No known health problems Mother Diabetes Social History Housing: House Patient Tobacco Use Status: Never used Tobacco e-Cigarette/Vaping Use: Never Used Second Hand Smoke Exposure: No service: No Current occupational status: retired Current occupational exposures/hazards: No Cognitive needs: No Hearing needs: No Vision needs: No Physical Exam Absence of Cushingoid features. Absence of acromegalic features. Neck exam reveals nl size thyroid about 15 gms. No thyroid nodules palpable. No carotid bruits present. Lungs CTA. Heart S1 S2, Reg R/R. No M/R/ G. Skin exam reveals absence of vitiligo or acanthosis nigricans. Abdominal exam reveals Soft NT/ND with NA BS. No organomegaly present. Neck Other: . Extrem Other: Visual exam of foot performed. No ulcerations or open lesions. No onchomycosis, no callouses.Pulses 2 + distally Sensation intact to monofilament exam. Vibratory sensation sensed is intact with 128 Hz tuning fork Assessment & Plan Assessment & Plan (1) Diabetes: Code(s): E11.9 - Type 2 diabetes mellitus without complications Plan: This is a 68-year-old white male with a history of type 2 diabetes being treated with Mounjaro, metformin and basal-bolus insulin with fair glycemic control and no known microvascular or macrovascular complications. Admits to noncompliance with prandial insulin The plan is to decrease Lantus to 28 units and take prandial insulin on a regular basis before breakfast to prevent post-breakfast rises. Patient will get back to me to let me know if Ozempic is covered as Mounjaro co-pay is quite high Coding Level of Care Code Est Pt Level 4 (04993) Diagnoses Diabetes E11.9
[2024-02-12 08:43] LABS: Glucose, Whole Blood 219 mg/dL (60-115)
== END 2024-02-12 09:10 | disposition home or self-care (01) ==
PROVIDERS: PCP Family Medicine; Visit Provider Internal Medicine Endocrinology, Diabetes & Metabolism
DX: E11.9 Type 2 diabetes mellitus without complications (principal)
CPT/HCPCS: 99214

== ENCOUNTER → 2024-02-12 08:29 | Outpatient (BNVA) | payer MEDICARE, SELFPAY | PROVIDERS: PCP Family Medicine; Visit Provider Internal Medicine Endocrinology, Diabetes & Metabolism | DX: E11.21 Type 2 diabetes mellitus with diabetic nephropathy (principal); E78.5 Hyperlipidemia, unspecified; Z83.3 Family history of diabetes mellitus; Z79.4 Long term (current) use of insulin; Z79.84 Long term (current) use of oral hypoglycemic drugs; Z79.899 Other long term (current) drug therapy | CPT/HCPCS: 82947; 99212 ==

== ENCOUNTER 2024-03-11 09:24 | Outpatient (AMB) | payer MEDICARE, SELFPAY ==
--- NOTE | 2024-03-11 09:28 | A.OFFPC_ITS ---
Vital Signs 03/11/24 09:30 Height 5 ft 8 in Weight 186 lb 9 oz BMI 28.4 BP 122/70 Blood Pressure Location Rt brachial Position Sitting Pulse 75 Pulse Source Pulse Oximeter Pulse Oximetry (%) 98 Oxygen Delivery Method Room Air Intake Visit Reasons: f/u hypertension and diabetes Intake Note: Patient is here to follow up on hypertension and diabetes today. Allergies red dye Allergy (Verified 03/11/24 09:31) Itchy Eyes Medication List - Last Reconciled 03/11/24 by Anoop Hammonds MD aspirin (Adult Low Dose Aspirin) 81 mg PO DAILY blood sugar diagnostic (Interrad Medicaluch Verio test strips) As directed 2 times a day, 90 days blood-glucose meter (TirendoTouch Verio Reflect Meter) USE TO TEST THREE TIMES DAILY(FREESTYLE NOT COVERED) flash glucose scanning reader (FreeStyle Ashley 2 [place]) As directed flash glucose sensor (FreeStyle Ashley 2 Sensor kit) USE DIRECTED insulin glargine (Lantus Solostar U-100 Insulin) 34 units (0.34 mL) subcut QPM 90 days insulin lispro (Humalog KwikPen (U-100) Insulin) 7 units (0.07 mL) subcut QAM lancets (OneTouch Delica Plus Lancet) USE TO TEST THREE TIMES DAILY(FREESTYLE NOT COVERED) lisinopril 20 mg PO DAILY 90 days lorazepam 0.5 mg PO BID PRN 2 days metformin 1,000 mg (2 x 500 mg) PO BID 90 days pen needle, diabetic (BD Ultra-Fine Micro Pen Needle) Daily As directed to treat high blood sugar, 90 days simvastatin 80 mg PO BEDTIME 90 days tirzepatide (Mounjaro) 5 mg (0.5 mL) subcut QWEEK Tobacco use date assessed: 03/11/24 Fall risk assessment: No Falls in past year Last assessed Fall Risk: 03/11/24 Dental Screening Dental Screen Date: 12/11/23 HPI f/u hypertension and diabetes HPI Details 68 y/o male presents to f/u hypertension and diabetes. Last A1c 12/11/23 7.6% - he had been having difficulty getting Trulicity so had switched this to Mounjaro. He notes he had been having trouble with the cost of Mounjaro. A1c today 03/11/24 6.7%. He states he has not been taking Mounjaro for a month. Blood pressure today 122/70. He is on lisinopril 20mg daily. Pt reports intermittent chest pain and has an appt. with Cardiology in March. [facility] Medical History Murmur Elevated cholesterol HTN (hypertension) Diabetes Prolapsed hemorrhoids Surgical History H/O hemorrhoidectomy Hx of shoulder surgery Hx of total ankle replacement Family History Father Lung cancer Brother Cardiac defibrillator in place Diabetes Brother Cardiac defibrillator in place Diabetes Brother No known health problems Brother No known health problems Mother Diabetes Social History Housing: House Patient Tobacco Use Status: Never used Tobacco e-Cigarette/Vaping Use: Never Used Second Hand Smoke Exposure: No service: No Current occupational status: retired Current occupational exposures/hazards: No Cognitive needs: No Hearing needs: No Vision needs: No Questionnaire Thrive Questionnaire Date Thrive assessed: 11/28/21 AUTUMN-7 AMB Questionnaire AUTUMN-7 Date AUTUMN - 7 assessed: 12/11/23 Source: Developed by Drs. Kayden Ibarra, Marce Phelan, Sean Arciniega and colleagues, with an educational emerald from [employer]. Review of Systems Const Denies chills, Denies fatigue, Denies fever(s), Denies headache(s) and Denies w eakness ENT Denies dizziness and Denies headache(s) Card Denies dyspnea Resp Denies cough, Denies dyspnea, Denies wheezing and Denies other (shortness of breath) Musc Denies numbness and Denies tingling Neuro Denies dizziness, Denies headache(s), Denies numbness, Denies tingling and Denies weakness Psych Denies anxiety and Denies depression Endo Denies fatigue Aller/Immun Denies wheezing Physical exam (Primary Care) Vital Signs: Last Vital Signs Pulse 75 03/11/24 09:30 BP 122/70 03/11/24 09:30 Pulse Ox 98 03/11/24 09:30 Oxygen Delivery Method Room Air 03/11/24 09:30 BMI result Body Mass Index 28.4 Tobacco/Smoking Status: Tobacco use Status Tobacco use date assessed 03/11/24 03/11/24 09:32 Patient Tobacco Use Status Never used Tobacco 03/11/24 09:29 e-Cigarette/Vaping Use Never Used 03/11/24 09:29 Thrive Assessment: Date of Thrive Assessment Date Thrive assessed 11/28/21 03/11/24 09:29 Const General: well developed; No acute distress Nutritional Appearance: well nourished Orientation/consciousness: patient oriented x3 HENMT Head: Yes normocephalic and Yes atraumatic Eyes General: appearance normal, both eyes and all related structures Pupils: Equal, round and reactive pupils present EOM: EOMs intact bilaterally Resp Effort & Inspection: normal respiratory effort Auscultation: clear to auscultation bilaterally Cardio Rate: regular rate Rhythm: regular rhythm Heart sounds: S1 normal heart sound present, S2 normal heart sound present, no gallops, Murmur heart sound present (Loud systolic murmur) and no rubs Neuro General: patient oriented x3 and gait normal Cranial nerves: Yes Equal, round and reactive pupils present Psych Affect: normal affect Results AMB Hemoglobin A1c AMB Hemoglobin A1c 6.7 % Last Edit by Sharon Islas CMA on 03/11/24 09:48 Results Reviewed Results Reviewed: Laboratory Last Values Hgb A1c (Clinic) 6.7 % (4.0-6.0) H 03/11/24 09:47 Assessment and Plan Assessment & Plan (1) Essential hypertension: Code(s): I10 - Essential (primary) hypertension Plan: Blood?pressure?is?well?controlled.??Goal?is?less?than?130/80 Continue?lisinopril (2) Diabetes: Code(s): E11.9 - Type 2 diabetes mellitus without complications Plan: A1c?now?in?good?control?at?6.7%.??Goal?is?less?than?7.0% He?is?taking?metformin,?Humalog?and?Lantus Followed?by?endocrinology Continue?diabetic?diet?and?current?medication?regimen Follow-up?with?endocrinology?as?recommended (3) Coronary artery disease: Code(s): I25.10 - Atherosclerotic heart disease of [place] coronary artery without angina pectoris Plan: Followed?by?cardiology Has?upcoming?coronary?CT Continue?aspirin?and?simvastatin Follow-up?with?Cardiology?as?recommended (4) Chest pain: Code(s): R07.9 - Chest pain, unspecified Plan: Gets?intermittent?chest?pain?with?exertion?lasting?only?about?a?minute. Has?follow-up?with?Cardiology.??I?recommended?that?if?he?feels?any?pain?he?shoul d?rest?and?if?pain?is?lasting?more?th an?about?5?minutes?he?should?go?to?the?ED.??Patient?understands. Follow-up?with?Cardiology?as?recommended?or?sooner?p.r.n. Orders: Orders AMB Hemoglobin A1c Today Z13.9 - Encounter for screening, unspecified Coding Level of Care Code Est Pt Level 4 (54275) Diagnoses Essential hypertension I10 Diabetes E11.9 Coronary artery disease I25.10 Chest pain R07.9
[2024-03-11 09:30] VITALS: BP 122/70; PULSE 75; O2SAT 98; BMI 28.4
== END 2024-03-11 10:27 | disposition home or self-care (01) ==
PROVIDERS: PCP Family Medicine; Visit Provider Family Medicine
DX: I10 Essential (primary) hypertension (principal); E11.9 Type 2 diabetes mellitus without complications; I25.10 Atherosclerotic heart disease of native coronary artery without angina pectoris; R07.9 Chest pain, unspecified
CPT/HCPCS: 83036; 99214

== ENCOUNTER 2024-03-12 11:49 | Outpatient (REF) | payer MEDICARE, SELFPAY ==
[2024-03-12 13:32] LABS: Anion Gap 16 (12-20); Blood Urea Nitrogen 15 mg/dL (9-16); Calcium 9.5 mg/dL (8.4-10.2); Carbon Dioxide 26 mmol/L (22-29); Chloride 104 mmol/L (96-108); Estimated Glomerular Filt Rate > 60; Glucose Random 136 mg/dL (60-115); Potassium 4.1 mmol/L (3.3-5.1); Sodium 142 mmol/L (135-145)
== END 2024-03-12 11:50 | disposition home or self-care (01) ==
LOC: HO.LAB 11:49
PROVIDERS: PCP Family Medicine; Visit Provider Internal Medicine Cardiovascular Disease
DX: I10 Essential (primary) hypertension (principal); R94.39 Abnormal result of other cardiovascular function study
CPT/HCPCS: 36415; 80048

== ENCOUNTER 2024-03-16 09:01 | Outpatient (AMB) | payer MEDICARE, SELFPAY ==
--- NOTE | 2024-03-16 09:34 | A.OFFVIS_ITS ---
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: No Accompanied by: Self / Same As Patient Allergies red dye Allergy (Verified 03/11/24 09:31) Itchy Eyes HPI Comprehensive Diabetes Asmnt Most Recent Diabetes Results: Microalb/Creat Ratio 21.1 ug/mg cr (<30) 08/06/23 Cholesterol 130 mg/dL (<200) 08/06/23 HDL Cholesterol 47 mg/dL (>40) 08/06/23 Triglycerides 106 mg/dL (<150) 08/06/23 Creatinine 1.03 mg/dL (0.5-1.4) 03/12/24 Blood Urea Nitrogen 15 mg/dL (9-16) 03/12/24 Sodium 142 mmol/L (135-145) 03/12/24 Potassium 4.1 mmol/L (3.3-5.1) 03/12/24 Chloride 104 mmol/L (96-108) 03/12/24 Carbon Dioxide 26 mmol/L (22-29) 03/12/24 Calcium 9.5 mg/dL (8.4-10.2) 03/12/24 AST 23 U/L (5-37) 08/06/23 ALT 21 U/L (0-40) 08/06/23 Total Protein 6.9 g/dL (6.5-8.0) 08/06/23 Albumin 4.1 g/dL (3.5-5.0) 08/06/23 [facility] Medical History Murmur Elevated cholesterol HTN (hypertension) Diabetes Prolapsed hemorrhoids Surgical History H/O hemorrhoidectomy Hx of shoulder surgery Hx of total ankle replacement Family History Father Lung cancer Brother Cardiac defibrillator in place Diabetes Brother Cardiac defibrillator in place Diabetes Brother No known health problems Brother No known health problems Mother Diabetes Social History Housing: House Patient Tobacco Use Status: Never used Tobacco e-Cigarette/Vaping Use: Never Used Second Hand Smoke Exposure: No service: No Current occupational status: retired Current occupational exposures/hazards: No Cognitive needs: No Hearing needs: No Vision needs: No Assessment & Plan Assessment & Plan (1) Diabetes: Code(s): E11.9 - Type 2 diabetes mellitus without complications Plan: Learning objectives: The patient was provided with verbal and written education on the following topics as outlined below. Assess patient education level/literacy/barriers Patient questions/concerns, patient's last A1c on 03/11/2024 6.7%. However patient has been unable to afford to continue on Mounjaro 2.5 mg. At last visit with Dr. Tino Jiménez prescribed Humalog 7 units before breakfast. Patient is still having postprandial hyperglycemia at lunch and at supper. Patient uses Ashley 2 to test glucose Average glucose for the past 2 weeks 208 mg/dL Patient above target 58% Patient at target 42% Patient below target 0% Patient does have 2 episodes overnight hypoglycemia, he is on 28 units of Lantus, but has deep trend down overnight. Recommended to patient that he had Humalog 7 units pre meals, in reduce Lantus to 20 units daily The patient met all learning objectives and was able to verbalize understanding and provide teach back of education topics discussed . The patient was provided with the opportunity to ask questions and all questions were answered. Topics covered in today?s session included: Medications (If applicable) * Name of medication? * Dosing/administration instructions? * Mechanism of action? * Potential side effects? * Potential adverse reaction and appropriate treatment? * Review onset, peak, duration Assess for concerns re: insurance coverage, cost, barriers to compliance Insulin/Injectables (If applicable) * Storage/care of insulin?? * Injection sites? * Site rotation? * Onset, peak, duration * Drawing up insulin? * Injecting insulin/other injectables? * Sharps disposal Continuous blood glucose monitoring (if applicable) Hypoglycemia and Hyperglycemia * Signs and symptoms? * Causes?? * Treatment? * Preventing hypoglycemia? * When to seek medical attention * Blood glucose targets and how you feel when your blood glucose is in and out of your target ranges. * Monitoring and knowing your A1C. * What can make blood glucose go up and down and preventing high and low blood glucose. * Review of blood sugar targets in expected goal range and outside of expected goal range. * Problem solving and preventing hyper/hypoglycemia. * Sick day management of diabetes. * Using blood sugar results in decision making process in managing diabetes. ?Patient was receptive to information provided and participated in the discussion. Asked?appropriate questions and demonstrated good understanding of the topics discussed.? ? Smart Goal Assessment:? Patient will take glucose 2-3 times daily Pt met goal more than 100% New Smart Goal: Patient will add Humalog 7 units before meals Patient Response to instructions: Comprehension of Instructions: Good Readiness to make changes:? Action How confident they feel about making changes: Positive Patient Instructions: DIABETES PROBLEMS HOMECARE INSTRUCTIONS Hypo instructions ? When first signs of insulin reaction occur, immediately drink orange juice or cola, or suck on a sugar cube, but only if the person is conscious. ? Person with diabetes should continue taking insulin when ill, unless he/she is not able to eat.? Regularly check blood sugar or urine for sugar and acetone during illness. ? Exercise regularly. ? Pay special attention to the feet.? Avoid cuts, sores, blisters, ill- fitting shoes, or going barefoot.? Promptly treat injuries to the feet. ? Take medications as directed by physician. ? Drink extra water or noncaffeinated, nonsugared drinks to prevented hydration. Signs and symptoms of low blood sugar (happen quickly) Each person's reaction to low blood sugar is different. Learn your own signs and symptoms of when your blood sugar is low. Taking time to write these symptoms down may help you learn your own symptoms of when your blood sugar is low. From milder, more common indicators to most severe, signs and symptoms of low blood sugar include: Feeling shaky Being nervous or anxious Sweating, chills and clamminess Irritability or impatience Confusion Fast heartbeat Feeling lightheaded or dizzy Hunger Nausea Color draining from the skin (pallor) Feeling Sleepy Feeling weak or having no energy Blurred/impaired vision Tingling or numbness in the lips, tongue, or cheeks Headaches Coordination problems, clumsiness Hypoglycemia or blood glucose under 70 use the rule of 15's: If you have your blood glucose meter test your blood glucose, if you do not have your meter still follow below instruction: Keep quick-sugar foods with you at all times.? Take 15 grams of fast acting carbohydrates. Examples are 4 ounces of fruit juice or regular soda pop, 8 ounces fat-free milk, 1 tablespoon of table sugar, honey or corn syrup, jam, one miniature box of raisins, 7-8 gumdrops or Life Savers candy, 4 glucose tablets, and glucose gel.? Retest blood glucose in 15 minutes, if blood glucose is still under 70,repeat rule of 15's. If blood glucose is under 50, take 30 grams of fast acting carbohydrates If you are having hypoglycemia, or insulin reaction, more that a few times a week, call MD or special educator F/U BG check Follow-up with special educator in 4 months, contact special educator if having hypoglycemia Coding Level of Care Code Est Pt Level 1 (52686) Diagnoses Diabetes E11.9
== END 2024-03-16 09:40 | disposition home or self-care (01) ==
PROVIDERS: PCP Family Medicine; Visit Provider Registered Nurse Diabetes Educator
DX: E11.9 Type 2 diabetes mellitus without complications (principal)

== ENCOUNTER → 2024-03-16 09:01 | Outpatient (BNVA) | payer MEDICARE, SELFPAY | PROVIDERS: PCP Family Medicine; Visit Provider Registered Nurse Diabetes Educator | DX: E11.9 Type 2 diabetes mellitus without complications (principal) | CPT/HCPCS: 99211 ==

== ENCOUNTER 2024-04-15 09:25 | Outpatient (AMB) | payer MEDICARE, SELFPAY ==
[2024-04-15 09:29] VITALS: BP 140/80; PULSE 83; BMI 28.5
--- NOTE | 2024-04-15 09:29 | A.OFFVIS_ITS ---
Vital Signs 04/15/24 09:29 Height 5 ft 8 in Weight 187 lb 6.287 oz BMI 28.5 BP 140/80 H Blood Pressure Location Lt brachial Position Sitting Pulse 83 Intake Visit Reasons: 6 month follow up Intake Note: 6 month follow-up with ekg feeling good Concession Attendant Required: No Allergies red dye Allergy (Verified 03/11/24 09:31) Itchy Eyes Medication List - Last Reconciled 04/15/24 by Michael Rubio MD aspirin (Adult Low Dose Aspirin) 81 mg PO DAILY blood sugar diagnostic (OneTouch Verio test strips) As directed 2 times a day, 90 days blood-glucose meter (MetaPackTouch Verio Reflect Meter) USE TO TEST THREE TIMES DAILY(FREESTYLE NOT COVERED) flash glucose scanning reader (FreeStyle Ashley 2 [place]) As directed flash glucose sensor (FreeStyle Ashley 2 Sensor kit) USE DIRECTED insulin glargine (Lantus Solostar U-100 Insulin) 20 units (0.2 mL) subcut QPM 90 days insulin lispro (Humalog KwikPen (U-100) Insulin) 7 units (0.07 mL) subcut TID lancets (MetaPackTouch Delica Plus Lancet) USE TO TEST THREE TIMES DAILY(FREESTYLE NOT COVERED) lisinopril 20 mg PO DAILY 90 days lorazepam 0.5 mg PO BID PRN 2 days metformin 1,000 mg (2 x 500 mg) PO BID 90 days pen needle, diabetic (BD Ultra-Fine Micro Pen Needle) Daily As directed to treat high blood sugar, 90 days simvastatin 80 mg PO BEDTIME 90 days HPI Comments Details: Hugo comes for follow-up after recent CTA which was done for abnormal stress test. This shows diffuse coronary atherosclerosis in all 3 coronary vessels with significant stenosis in the ramus branch of the left main. This shows subtotal occlusion. Patient continues to have no significant symptoms and limitations to his functional capacity. He said he occasionally notices shortness of breath when he does heavy exertion but this is not unusual for him. Denies any chest pain. Denies any heart failure symptoms. No prolonged palpitation irregular heartbeat. No lightheadedness, syncope. He is taking all his medication including low-dose aspirin therapy. His last LDL is 62 mg/dL in July. [facility] Medical History Murmur Elevated cholesterol HTN (hypertension) Diabetes Prolapsed hemorrhoids Surgical History H/O hemorrhoidectomy Hx of shoulder surgery Hx of total ankle replacement Family History Father Lung cancer Brother Cardiac defibrillator in place Diabetes Brother Cardiac defibrillator in place Diabetes Brother No known health problems Brother No known health problems Mother Diabetes Social History Housing: House Patient Tobacco Use Status: Never used Tobacco e-Cigarette/Vaping Use: Never Used Second Hand Smoke Exposure: No service: No Current occupational status: retired Current occupational exposures/hazards: No Cognitive needs: No Hearing needs: No Vision needs: No Review of Systems Const Denies chills, Denies fatigue, Denies fever(s), Denies frequent falls, Denies weakness, Denies weight gain and Denies weight loss ENT Denies dizziness Card Denies chest pain, Denies leg edema, Denies lightheadedness, Denies palpitations, Denies dyspnea, Denies dyspnea on exertion, Denies orthopnea and Denies other (loss of consciousness) Resp Denies cough, Denies dyspnea and Denies dyspnea on exertion GI Denies hematochezia and Denies change in stool character Musc Denies abnormal gait, Denies muscle weakness, Denies numbness, Denies radiating pain into limb and Denies tingling Neuro Denies Abnormal speech present, Denies abnormal gait, Denies dizziness, Denies frequent falls, Denies numbness, Denies tingling and Denies weakness Endo Denies fatigue and Denies palpitations Physical Exam Vital Signs: Last Vital Signs Pulse 83 04/15/24 09:29 BP 140/80 H 04/15/24 09:29 BMI result Body Mass Index 28.5 Const General: cooperative, comfortable, no acute distress, well developed, alert, awake and Physically active Nutritional Appearance: average body habitus Orientation/consciousness: patient oriented x3 Limitations: no limitations Neck Neck: Yes trachea midline, Yes supple and Yes no JVD Resp Effort & Inspection: normal respiratory effort Auscultation: clear to auscultation bilaterally Cardio Jugular venous distension: no JVD Palpation: normal PMI Rate: regular rate Rhythm: regular rhythm Heart sounds: S1 normal heart sound present, S2 normal heart sound present, no click, no gallops and Murmur heart sound present systolic mid, decrescendo, crescendo and at the base GI Auscultation: normal bowel sounds Skin General skin exam: no rashes or lesions noted Neuro General: patient oriented x3 and no focal motor deficits Speech: No Abnormal speech present Extrem General: Yes no clubbing, cyanosis or edema Assessment & Plan Assessment & Plan (1) Coronary artery disease: Code(s): I25.10 - Atherosclerotic heart disease of [place] coronary artery without angina pectoris Category: Medical Plan: Diffuse three-vessel coronary artery disease with severe stenosis in the ramus branch of the left main. This is significant and most likely responsible for abnormal EKG as well as abnormal stress test. He has currently not having any worsening or concerning symptoms. Advised him to watch out for the same. Meanwhile I will start him on medical therapy as per ISCHEMIA trial. We discussed about management. Continue low-dose aspirin therapy. Continue aggressive vascular risk factor modification. LDL is currently well optimized. Diabetes under your care with goal hemoglobin A1c less than 7%. Encouraged to c ontinue to participate in physical activity and if he develops progressive symptoms advised to call my office and when he need to pursue invasive cardiac catheterization. He understands management well. Continue low-dose aspirin therapy for life. (2) Aortic stenosis, moderate: Code(s): I35.0 - Nonrheumatic aortic (valve) stenosis Category: Medical Plan: Moderate aortic stenosis. Follow-up echocardiogram annually. Next echocardiogram is scheduled in August. Will follow up in the clinic in 6 months time. Continue aggressive vascular risk factor modifications above. Continue low-dose aspirin therapy. Cardinal symptoms associated with aortic stenosis were discussed. Will follow up in the clinic in 6 months time, sooner p.r.n.. Thank you for allowing me to partake in his care Orders: Orders CA echo transthoracic complete 5 Months I35.0 - Nonrheumatic aortic (valve) stenosis Medications: New metoprolol succinate ER (Toprol XL) 50 mg PO DAILY 30 tabs 5RF I35.0 - Nonrheumatic aortic (valve) stenosis Coding Level of Care Code Est Pt Level 4 (05292) Diagnoses Coronary artery disease I25.10 Aortic stenosis, moderate I35.0
== END 2024-04-15 10:07 | disposition home or self-care (01) ==
PROVIDERS: PCP Family Medicine; Visit Provider Internal Medicine Cardiovascular Disease
DX: I25.10 Atherosclerotic heart disease of native coronary artery without angina pectoris (principal); I35.0 Nonrheumatic aortic (valve) stenosis
CPT/HCPCS: 93010; 99214

== ENCOUNTER → 2024-04-15 09:25 | Outpatient (BNVA) | payer MEDICARE, SELFPAY | PROVIDERS: PCP Family Medicine; Visit Provider Internal Medicine Cardiovascular Disease | DX: I25.10 Atherosclerotic heart disease of native coronary artery without angina pectoris (principal); I35.0 Nonrheumatic aortic (valve) stenosis | CPT/HCPCS: 93005; 99212 ==

== ENCOUNTER 2024-06-12 09:26 | Outpatient (AMB) | payer MEDICARE, SELFPAY ==
--- NOTE | 2024-06-12 09:27 | A.OFFVIS_ITS ---
Vital Signs 06/12/24 09:29 Height 5 ft 8 in Weight 187 lb 6.287 oz BMI 28.5 BP 122/78 Blood Pressure Location Rt brachial Position Sitting Pulse 56 Pulse Source Pulse Oximeter Intake Visit Reasons: T2DM/LVM Intake Note: Patient presents today for [facility] follow up visit. Last Diabetic Eye exam: 06/2023 Last Podiatry Visit: 3 months ago Random Glucose: 180mg/dl HgA1c: 7.4%, 06/12/2024 Mud Analysis Operator Required: No Accompanied by: Self / Same As Patient Allergies red dye Allergy (Verified 06/12/24 09:30) Itchy Eyes Medication List - Last Reconciled 06/12/24 by Mariella Quinones PA-C aspirin (Adult Low Dose Aspirin) 81 mg PO DAILY blood sugar diagnostic (Pretty Simpleuch Verio test strips) As directed 2 times a day, 90 days blood-glucose meter (Camera360Touch Verio Reflect Meter) USE TO TEST THREE TIMES DAILY(FREESTYLE NOT COVERED) flash glucose scanning reader (FreeStyle Ashley 2 [place]) As directed flash glucose sensor (FreeStyle Ashley 2 Sensor kit) USE DIRECTED insulin glargine (Lantus Solostar U-100 Insulin) 20 units (0.2 mL) subcut QPM 90 days insulin lispro (Humalog KwikPen (U-100) Insulin) 7 units (0.07 mL) subcut TID lancets (Camera360Touch Delica Plus Lancet) USE TO TEST THREE TIMES DAILY(FREESTYLE NOT COVERED) lisinopril 20 mg PO DAILY 90 days lorazepam 0.5 mg PO BID PRN 2 days metformin 1,000 mg (2 x 500 mg) PO BID 90 days metoprolol succinate ER (Toprol XL) 50 mg PO DAILY pen needle, diabetic (BD Ultra-Fine Micro Pen Needle) Daily As directed to treat high blood sugar, 90 days simvastatin 80 mg PO BEDTIME 90 days HPI HPI T2DM/LVM: Details: Patient is a 69-year-old male with a significant past medical history of type 2 diabetes, hypertension, hyperlipidemia, CAD presenting today for diabetic follow-up. Last saw Dr. Jiménez in January. Endo: DM last A1c was 7.4. He is currently on Lantus 20 units nightly, Humalog 7 units t.i.d., metformin 1000 mg b.i.d.. -Mounjaro was too expensive, trulicity was unavailable - States blood sugars were better controlled when he was on Trulicity CGM- 4% very high, 20 % high, 71% in target, 5% hypoglycemic. hypoglycemia- overnight over the last few weeks, Correct hypoglycemia with glucose tabs. Sometimes the symptoms of hypoglycemia will also week, where he will feel sweaty and shaky. Lowest blood sugar is 54. hyperglycemia- with meals he is on TERESA-inhibitor and statin. CV: Blood pressure today in the office is 122/78. He is on lisinopril 20 mg. Cholesterol is controlled with simvastatin 80 mg. No myalgias. Last LDL was 62. he has known heart disease and does follow with cardiology. No chest pain or shortness of breath. He is On aspirin. [facility], [facility] Medical History Murmur Elevated cholesterol HTN (hypertension) Diabetes Prolapsed hemorrhoids Surgical History H/O hemorrhoidectomy Hx of shoulder surgery Hx of total ankle replacement Family History Father Lung cancer Brother Cardiac defibrillator in place Diabetes Brother Cardiac defibrillator in place Diabetes Brother No known health problems Brother No known health problems Mother Diabetes Social History Housing: House Patient Tobacco Use Status: Never used Tobacco e-Cigarette/Vaping Use: Never Used Second Hand Smoke Exposure: No service: No Current occupational status: retired Current occupational exposures/hazards: No Cognitive needs: No Hearing needs: No Vision needs: No Physical Exam Vital Signs: Last Vital Signs Pulse 56 06/12/24 09:29 BP 122/78 06/12/24 09:29 BMI result Body Mass Index 28.5 Const Orientation/consciousness: patient oriented x3 HEENT Ears: hearing grossly normal bilaterally Neck Thyroid: Thyroid normal Lymphatic: no lymphadenopathy noted Resp Auscultation: clear to auscultation bilaterally Cardio Rate: regular rate Rhythm: regular rhythm Heart sounds: S1 normal heart sound present and S2 normal heart sound present GI Inspection: Yes normal to inspection Palpation (GI): Soft to palpation and Other GI palpation findings present (nontender, no cva tenderness) Auscultation: normoactive bowel sounds Rectal Exam - Male: Yes deferred Skin General skin exam: no rashes or lesions noted Neuro General: patient oriented x3, gait normal and no focal motor deficits Results AMB Hemoglobin A1c AMB Hemoglobin A1c 7.4 % Last Edit by TONYA Rojas on 06/12/24 09:54 Results Reviewed Results Reviewed: Laboratory Last Values Glucose (Clinic) 180 mg/dL (60-115) H 06/12/24 09:35 Hgb A1c (Clinic) 7.4 % (4.0-6.0) H 06/12/24 09:53 Laboratory Tests 03/11/24 03/12/24 09:47 12:02 Sodium 142 Potassium 4.1 Chloride 104 Creatinine 1.03 Estimated GFR > 60 Random Glucose 136 H Hgb A1c (Clinic) 6.7 H Laboratory Tests 08/06/23 08:40 Triglycerides 106 Cholesterol 130 LDL Cholesterol, Calc 62 HDL Cholesterol 47 TSH 1.91 Laboratory Tests 08/06/23 08:40 Urine Creatinine 231.91 Urine Microalbumin 49.0 Microalb/Creat Ratio 21.1 Assessment & Plan Assessment & Plan (1) Poorly controlled type 2 diabetes mellitus: Code(s): E11.65 - Type 2 diabetes mellitus with hyperglycemia Category: Medical Plan: will start Ozempic. Discussed risks and benefits and adverse effects of this medication including nausea, vomiting, increased risk of pancreatitis. I will reduce his nighttime insulin and dinner time insulin. (2) Essential hypertension: Code(s): I10 - Essential (primary) hypertension Category: Medical Plan: WNL. Continue current regimen (3) Hypertriglyceridemia: Code(s): E78.1 - Pure hyperglyceridemia Category: Medical Plan: reviewed labs. Well-controlled. Continue current regimen (4) Coronary artery disease: Code(s): I25.10 - Atherosclerotic heart disease of [place] coronary artery without angina pectoris Category: Medical Plan: asymptomatic. follows with cardiology. Orders: Orders AMB Hemoglobin A1c Today E11.65 - Type 2 diabetes mellitus with hyperglycemia Medications: New blood-glucose sensor (FreeStyle Ashley 3 Sensor device) Apply every 14 days As directed to monitor blood glucose 2 ea 11RF E11.9 - Type 2 diabetes mellitus without complications, Z79.4 - detention (current) use of insulin semaglutide (Ozempic) for 4 weeks; then increase to 0.5 mg every week 0.25 mg (0.368 mL) subcut QWEEK 3 mL 1RF Changed From insulin lispro (Humalog KwikPen (U-100) Insulin) 7 units (0.07 mL) subcut TID 45 mL 4RF To insulin lispro (Humalog KwikPen (U-100) Insulin) inject 7 units subcutaneously with breakfast and lunch, inject 4 units with supper. 45 mL 4RF From insulin glargine (Lantus Solostar U-100 Insulin) 20 units (0.2 mL) subcut QPM 90 days 18 mL 3RF E11.9 - Type 2 diabetes mellitus without complications To insulin glargine (Lantus Solostar U-100 Insulin) 18 units (0.18 mL) subcut QPM 16.2 mL 3RF 90 days E11.9 - Type 2 diabetes mellitus without complications Refilled blood sugar diagnostic (OneTouch Verio test strips) As directed 2 times a day, 90 days 200 ea 3RF E11.65 - Type 2 diabetes mellitus with hyperglycemia Discontinued flash glucose scanning reader (FreeStyle Ashley 2 [place]) Discontinued Reason: Doctor's Order As directed 1 ea 0RF flash glucose sensor (FreeStyle Ashley 2 Sensor kit) Discontinued Reason: Doctor's Order USE DIRECTED 7 ea 3RF Coding Level of Care Code Est Pt Level 4 (22723) Diagnoses Poorly controlled type 2 diabetes mellitus E11.65 Essential hypertension I10 Hypertriglyceridemia E78.1 Coronary artery disease I25.10
[2024-06-12 09:29] VITALS: BP 122/78; PULSE 56; BMI 28.5
[2024-06-12 09:38] LABS: Glucose, Whole Blood 180 mg/dL (60-115)
== END 2024-06-12 10:12 | disposition home or self-care (01) ==
PROVIDERS: PCP Family Medicine; Visit Provider Physician Assistant
DX: E11.65 Type 2 diabetes mellitus with hyperglycemia (principal); I10 Essential (primary) hypertension; E78.1 Pure hyperglyceridemia; I25.10 Atherosclerotic heart disease of native coronary artery without angina pectoris
CPT/HCPCS: 99214

== ENCOUNTER 2024-06-16 09:03 | Outpatient (AMB) | payer MEDICARE, SELFPAY ==
[2024-06-16 09:12] VITALS: BMI 27.6
--- NOTE | 2024-06-16 09:12 | MHC.AMNUTRGE ---
VS Expanded 06/16/24 09:12 Height 5 ft 8 in Weight 181 lb 10.574 oz BMI 27.6 Intake Visit Reasons: DM/LVM Allergies red dye Allergy (Verified 06/12/24 09:30) Itchy Eyes Nutrition Presentation Details: Pt presents for MNT f/u for T2DM Pt reports dietary indiscretion over the summer food frequency food sources of omega -3 x/week dairy:2 x/d fruits: 1/d veserving/d beverages: water/coffee 2x/d, crystal light physical activity: daily life , always moving BS Monitoring Most Recent Diabetes Results: Creatinine 1.03 mg/dL (0.5-1.4) 03/12/24 Blood Urea Nitrogen 15 mg/dL (9-16) 03/12/24 Sodium 142 mmol/L (135-145) 03/12/24 Potassium 4.1 mmol/L (3.3-5.1) 03/12/24 Chloride 104 mmol/L (96-108) 03/12/24 Carbon Dioxide 26 mmol/L (22-29) 03/12/24 Calcium 9.5 mg/dL (8.4-10.2) 03/12/24 PFSH Medical History Murmur Elevated cholesterol HTN (hypertension) Diabetes Prolapsed hemorrhoids Surgical History H/O hemorrhoidectomy Hx of shoulder surgery Hx of total ankle replacement Family History Father Lung cancer Brother Cardiac defibrillator in place Diabetes Brother Cardiac defibrillator in place Diabetes Brother No known health problems Brother No known health problems Mother Diabetes Social History Housing: House Patient Tobacco Use Status: Never used Tobacco e-Cigarette/Vaping Use: Never Used Second Hand Smoke Exposure: No service: No Current occupational status: retired Current occupational exposures/hazards: No Cognitive needs: No Hearing needs: No Vision needs: No Assessment & Plan Assessment & Plan (1) Poorly controlled type 2 diabetes mellitus: Code(s): E11.65 - Type 2 diabetes mellitus with hyperglycemia Category: Medical Plan: Review role of omega 3 in diet. ? Used wt : 87 kg Est kcal as per MSJ: 2200 (40% carb, 30% fat/prot) Est fluid needs: 2225 ml/d (25 ml/kg bw) Rec fiber: increase to 8-10 g per day and gradually increase to 35 g or as tolerated Rec Na: < 2000 mg /d Educate patient on: (R= Reviewed, V = verbalizes understanding N/R= Needs review N/A= not applicable) Food sources of carbohydrates and serving adequate serving sizes : R ,V Difference between complex carbohydrates and simple carbohydrates, role of fiber: R ,V Differences between fats (MUFA/PUFA/saturated fats, trans fats) and food sources of various fats: R, V Food sources of sodium and salt and healthy modifications for heart health and kidney health: N/R Vitamins and minerals: R How to interpret food labels: R Healthy Plate method concept: R,V Physical activity: benefits and precaution: R,V prevention and treatment of hypoglycemia: R,V Patient Instructions: Include omega 3 in your diet ( nuts, seeds, fish at least twice a week ) Follow healthy plate method Coding Level of Care Code Nutr Indiv Subseq (84082) Diagnoses Poorly controlled type 2 diabetes mellitus E11.65 Time Spent (min) 20
== END 2024-06-16 09:32 | disposition home or self-care (01) ==
PROVIDERS: PCP Family Medicine; Visit Provider Dietitian, Registered
DX: E11.65 Type 2 diabetes mellitus with hyperglycemia (principal)

== ENCOUNTER → 2024-06-16 09:03 | Outpatient (BNVA) | payer MEDICARE, SELFPAY | PROVIDERS: PCP Family Medicine; Visit Provider Dietitian, Registered | DX: E11.65 Type 2 diabetes mellitus with hyperglycemia (principal) | CPT/HCPCS: 97803 ==

== ENCOUNTER 2024-06-17 09:28 | Outpatient (AMB) | payer MEDICARE, SELFPAY ==
--- NOTE | 2024-06-17 09:42 | A.OFFPC_ITS ---
Vital Signs 06/17/24 09:46 Height 5 ft 8 in Weight 190 lb 6 oz BMI 28.9 BP 120/60 Blood Pressure Location Rt brachial Position Sitting Respiration 12 Pulse 64 Pulse Source Pulse Oximeter Temp 97.3 F Temp Source Tympanic Pulse Oximetry (%) 97 Oxygen Delivery Method Room Air Intake Visit Reasons: f/u hypertension, diabetes - see comment Intake Note: FOLLOW UP HTN AND DM Allergies red dye Allergy (Verified 06/17/24 09:43) Itchy Eyes Medication List - Last Reconciled 06/17/24 by Anoop Hammonds MD aspirin (Adult Low Dose Aspirin) 81 mg PO DAILY blood sugar diagnostic ([employer] Eye CareTouch Verio test strips) As directed 2 times a day, 90 days blood-glucose meter (ERC Eye CareTouch Verio Reflect Meter) USE TO TEST THREE TIMES DAILY(FREESTYLE NOT COVERED) blood-glucose sensor (FreeStyle Ashley 3 Sensor device) Apply every 14 days As directed to monitor blood glucose insulin glargine (Lantus Solostar U-100 Insulin) 18 units (0.18 mL) subcut QPM 90 days insulin lispro (Humalog KwikPen (U-100) Insulin) inject 7 units subcutaneously with breakfast and lunch, inject 4 units with supper. lancets (ERC Eye CareTouch Delica Plus Lancet) USE TO TEST THREE TIMES DAILY(FREESTYLE NOT COVERED) lisinopril 20 mg PO DAILY 90 days lorazepam 0.5 mg PO BID PRN 2 days metformin 1,000 mg (2 x 500 mg) PO BID 90 days metoprolol succinate ER (Toprol XL) 50 mg PO DAILY pen needle, diabetic (BD Ultra-Fine Micro Pen Needle) Daily As directed to treat high blood sugar, 90 days semaglutide (Ozempic) 0.25 mg (0.368 mL) subcut QWEEK simvastatin 80 mg PO BEDTIME 90 days Tobacco use date assessed: 03/11/24 Dental Screening Dental Screen Date: 12/11/23 HPI f/u hypertension, diabetes - see comment HPI Details 69 y/o male presents to f/u diabetes, hy pertension. Last A1c 06/12/24 7.4%. He is on metformin 1000mg b.i.d, Ozempic, insulin glargine 18 units, insulin lispro. He notes he had been getting lows so had decreased his Lantus from 20 units to 18 units. Blood pressure today 120/60, 64p. He is on lisinopril 20mg daily. HPI Comments History of Present Illness Details Documentation assistance for Anoop Hammonds MD, was provided by Eddie Winkler, Advanced Manager on 06/17/2024 at 9:54 AM EST. I, Dr. Hammonds, have read, observed, and verified documentation. [facility] Medical History Murmur Elevated cholesterol HTN (hypertension) Diabetes Prolapsed hemorrhoids Surgical History H/O hemorrhoidectomy Hx of shoulder surgery Hx of total ankle replacement Family History Father Lung cancer Brother Cardiac defibrillator in place Diabetes Brother Cardiac defibrillator in place Diabetes Brother No known health problems Brother No known health problems Mother Diabetes Social History Housing: House Patient Tobacco Use Status: Never used Tobacco e-Cigarette/Vaping Use: Never Used Second Hand Smoke Exposure: No service: No Current occupational status: retired Current occupational exposures/hazards: No Cognitive needs: No Hearing needs: No Vision needs: No Questionnaire Thrive Questionnaire Date Thrive assessed: 11/28/21 AUTUMN-7 AMB Questionnaire AUTUMN-7 Date AUTUMN - 7 assessed: 12/11/23 Source: Developed by Drs. Kayden Ibarra, Marce Phelan, Sean Arciniega and colleagues, with an educational emerald from [employer]. Review of Systems Const Denies chills, Denies fatigue, Denies fever(s), Denies headache(s) and Denies weakness ENT Denies dizziness and Denies headache(s) Card Denies chest pain, Denies lightheadedness, Denies dyspnea and Denies other (Palpitations) Resp Denies cough, Denies dyspnea, Denies wheezing and Denies other ( shortness of breath) Musc Denies numbness and Denies tingling Neuro Denies dizziness, Denies headache(s), Denies numbness, Denies tingling, Denies paresthesias and Denies weakness Psych Denies anxiety and Denies depression Endo Denies fatigue Aller/Immun Denies wheezing Physical exam (Primary Care) Vital Signs: Last Vital Signs Temp 97.3 F 06/17/24 09:46 Pulse 64 06/17/24 09:46 Resp 12 06/17/24 09:46 BP 120/60 06/17/24 09:46 Pulse Ox 97 06/17/24 09:46 Oxygen Delivery Method Room Air 06/17/24 09:46 BMI result Body Mass Index 28.9 Tobacco/Smoking Status: Tobacco use Status Tobacco use date assessed 03/11/24 06/17/24 09:43 Patient Tobacco Use Status Never used Tobacco 06/17/24 09:43 e-Cigarette/Vaping Use Never Used 06/17/24 09:43 Thrive Assessment: Date of Thrive Assessment Date Thrive assessed 11/28/21 06/17/24 09:43 Const General: no acute distress and well developed Nutritional Appearance: well nourished Orientation/consciousness: patient oriented x3 HENMT Head: Yes normocephalic and Yes atraumatic Eyes General: appearance normal, both eyes and all related structures Pupils: Equal, round and reactive pupils present EOM: EOMs intact bilaterally Resp Effort & Inspection: normal respiratory effort Auscultation: clear to auscultation bilaterally Cardio Rate: regular rate Rhythm: regular rhythm Heart sounds: S1 normal heart sound present, S2 normal heart sound present, no gallops, Murmur heart sound present and no rubs Neuro General: patient oriented x3 and gait normal Cranial nerves: Yes Equal, round and reactive pupils present Psych Affect: normal affect Assessment and Plan Assessment & Plan (1) Essential hypertension: Code(s): I10 - Essential (primary) hypertension Plan: Blood?pressure?is?well?controlled.??Goal?is?less?than?130/80 Continue?current?medications (2) Diabetes: Code(s): E11.9 - Type 2 diabetes mellitus without complications Plan: A1c?has?climbed?from?6.7%?7.4%.??Goal?is?less?than?7.0%. He had?had?issues?with?low?blood?sugars?at?night ?so?his?mealtime?insulins?and?Lantus?were?adjusted?recently. Advised?he?may?want?to?try?increasing?his?breakfast?and?lunchtime?insulin.??Will ?have?him?continue?with?decreased?insulin?at?dinnertime;?4?units?with?dinner. He?also?had?his?Lantus?decreased?from?20?units?daily?to?18?units?daily.??No?camacho ge?made?at?this?time?to?his?Lantus. Encouraged?a?diet?lower?in?sugars?and?starches Follow-up?with?Endocrine?as?recommended (3) Aortic stenosis, moderate: Code(s): I35.0 - Nonrheumatic aortic (valve) stenosis Plan: Stable?and?monitored?by?Cardiology Follow-up?with?Cardiology?in?August?as?recommended Orders: Orders Comprehensive [place]. Panel Fast Today Z00.00 - Encounter for general adult medical examination without abnormal findings TSH reflex Free T4 Today Z00.00 - Encounter for general adult medical examination without abnormal findings Complete Blood Count Auto Diff Today Z00.00 - Encounter for general adult medical examination without abnormal findings Lipid Panel Today Z00.00 - Encounter for general adult medical examination without abnormal findings Microalbumin, Random (w Creat) Today I10 - Essential (primary) hypertension Prostate Specific Antigen Scr Today Z12.5 - Encounter for screening for malignant neoplasm of prostate UA and rflx microscopic Today Z00.00 - Encounter for general adult medical examination without abnormal findings Hemoglobin A1c Today R73.01 - Impaired fasting glucose Coding Level of Care Code Est Pt Level 4 (21086) Diagnoses Essential hypertension I10 Diabetes E11.9 Aortic stenosis, moderate I35.0
[2024-06-17 09:46] VITALS: BP 120/60; PULSE 64; RESP 12; TEMP 36.3; O2SAT 97; BMI 28.9
== END 2024-06-17 11:11 | disposition home or self-care (01) ==
PROVIDERS: PCP Family Medicine; Visit Provider Family Medicine
DX: I10 Essential (primary) hypertension (principal); E11.9 Type 2 diabetes mellitus without complications; I35.0 Nonrheumatic aortic (valve) stenosis
CPT/HCPCS: 99214

== ENCOUNTER 2024-07-16 08:55 | Outpatient (AMB) | payer MEDICARE, SELFPAY ==
--- NOTE | 2024-07-16 09:29 | MHC.AMDMED ---
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 Accompanied by: Self / Same As Patient Allergies red dye Allergy (Verified 06/17/24 09:43) Itchy Eyes HPI Comprehensive Diabetes Asmnt Most Recent Diabetes Results: Microalb/Creat Ratio 21.1 ug/mg cr (<30) 08/06/23 Cholesterol 130 mg/dL (<200) 08/06/23 HDL Cholesterol 47 mg/dL (>40) 08/06/23 Triglycerides 106 mg/dL (<150) 08/06/23 Creatinine 1.03 mg/dL (0.5-1.4) 03/12/24 Blood Urea Nitrogen 15 mg/dL (9-16) 03/12/24 Sodium 142 mmol/L (135-145) 03/12/24 Potassium 4.1 mmol/L (3.3-5.1) 03/12/24 Chloride 104 mmol/L (96-108) 03/12/24 Carbon Dioxide 26 mmol/L (22-29) 03/12/24 Calcium 9.5 mg/dL (8.4-10.2) 03/12/24 AST 23 U/L (5-37) 08/06/23 ALT 21 U/L (0-40) 08/06/23 Total Protein 6.9 g/dL (6.5-8.0) 08/06/23 Albumin 4.1 g/dL (3.5-5.0) 08/06/23 [facility] Medical History Murmur Elevated cholesterol HTN (hypertension) Diabetes Prolapsed hemorrhoids Surgical History H/O hemorrhoidectomy Hx of shoulder surgery Hx of total ankle replacement Family History Father Lung cancer Brother Cardiac defibrillator in place Diabetes Brother Cardiac defibrillator in place Diabetes Brother No known health problems Brother No known health problems Mother Diabetes Social History Housing: House Patient Tobacco Use Status: Never used Tobacco e-Cigarette/Vaping Use: Never Used Second Hand Smoke Exposure: No service: No Current occupational status: retired Current occupational exposures/hazards: No Cognitive needs: No Hearing needs: No Vision needs: No Assessment & Plan Assessment & Plan (1) Poorly controlled type 2 diabetes mellitus: Code(s): E11.65 - Type 2 diabetes mellitus with hyperglycemia Plan: Personal Continuous Glucose Monitor: Patients CGM information reviewed Reviewed patient's sensor data: Hypoglycemia: ? 0% Hyperglycemia:? 63% Time in Range:? 37% Average glucose for the last 2 weeks?208 mg/dL Patient's A1c has increased 6.7 % in February 2024 to 7.4% 06/12/2024 Patient was seen by PA in May, PA added Ozempic however patient reports that it is too expensive, so he did not start new medication. He did reduce his Humalog doses which have led to postprandial hyperglycemia and overall higher average glucose Recommended to patient he resume Humalog doses 12 units before breakfast and lunch, 8 units before supper. Lower dose before supper is due to overnight downward trend of glucose to prevent morning hypoglycemia Reviewed with patient how to treat hypoglycemia with rule of 15s If after resuming prior Humalog doses patient notices increase in hypoglycemic events contact wall covering installer Reviewed how to interpret trend arrows Reminded patient that to check finger sticks if symptoms do not match sensor reading. Discussed lag time between finger stick and sensor data.? Patient able to insert sensor independently at home without issue.? Portions of this note were created using voice recognition software, please excuse any words or phrases that may have been misinterpreted. Patient Instructions: Contact wall covering installer episodes of hypoglycemia increase Use rule of 15s treat episodes of hypoglycemia Follow-up with wall covering installer in 5 months Coding Level of Care Code Est Pt Level 1 (06685) Diagnoses Poorly controlled type 2 diabetes mellitus E11.65
== END 2024-07-16 09:31 | disposition home or self-care (01) ==
PROVIDERS: PCP Family Medicine; Visit Provider Registered Nurse Diabetes Educator
DX: E11.65 Type 2 diabetes mellitus with hyperglycemia (principal)

== ENCOUNTER → 2024-07-16 08:55 | Outpatient (BNVA) | payer MEDICARE, SELFPAY | PROVIDERS: PCP Family Medicine; Visit Provider Registered Nurse Diabetes Educator | DX: E11.65 Type 2 diabetes mellitus with hyperglycemia (principal) | CPT/HCPCS: 99211 ==

== ENCOUNTER 2024-09-08 08:15 | Outpatient (REF) | payer MEDICARE, SELFPAY ==
[2024-09-08 11:18] LABS: MANUAL DIFF FLAG NO
[2024-09-08 11:24] LABS: Basophils Percent Auto 0.3 % (0-2); Eosinophils Absolute Auto 0.3 X10*3/uL (0.0-0.4); Eosinophils Percent Auto 4.3 % (0-4); Hematocrit 43.2 % (42.0-52.0); Hemoglobin 14.7 g/dl (14.0-18.0); Imm Gran Abs Auto 0.01 X10*3/uL (0.00-0.03); Imm Gran Pct Auto 0.2 % (0.0-0.4); Lymphocytes Absolute Auto 1.5 X10*3/uL (1.2-4.9); Lymphocytes Percent Auto 26.2 % (20-40); Mean Corpuscular Hemoglobin 31.2 pg (27.0-33.0); Mean Corpuscular Volume 91.7 fL (80.0-98.0); Mean Platelet Volume 10.1 fL (9.4-12.4); Monocytes Absolute Auto 0.5 X10*3/uL (0.1-1.2); Monocytes Percent Auto 8.6 % (2-11); Neutrophils Absolute Auto 3.5 x10*3/uL (2.0-8.3); Neutrophils Percent Auto 60.4 % (45-73); Platelet Count 191 X10*3/uL (160-400); Red Blood Count 4.71 X10*6/uL (4.60-5.80); White Blood Count 5.8 X10*3/uL (4.8-10.8)
[2024-09-08 11:36] LABS: Appearance Urine Clear; Color Urine Yellow; Glucose Urine UA Negative (Negative); Leukocyte Esterase Urine Negative (Negative); Nitrite Urine Negative (Negative); Specific Gravity - Urine 1.015 (1.005-1.025); Urine Blood Negative (Negative); Urine Ketones Negative (Negative); Urine Protein Negative (Neg-Trace)
[2024-09-08 11:46] LABS: Estimated Average Glucose 166 mg/dL; Hemoglobin A1C 223.8113 umol/L; Hemoglobin A1c % 7.4 % (<6.0); Total Hemoglobin (HGBA1C) 3938.7749 umol/L
[2024-09-08 11:52] LABS: Microalbum/Creatinine Ratio Ur 6.5 ug/mg cr (<30)
[2024-09-08 11:54] LABS: Alanine Aminotransferase 26 U/L (0-40); Albumin Level 4.2 g/dL (3.5-5.0); Alkaline Phosphatase 58 U/L (39-117); Anion Gap 11 (12-20); Aspartate Amino Transferase 25 U/L (5-37); Bilirubin Total 0.7 mg/dL (0.0-1.0); Blood Urea Nitrogen 15 mg/dL (9-16); Calcium 9.3 mg/dL (8.4-10.2); Carbon Dioxide 29 mmol/L (22-29); Chloride 106 mmol/L (96-108); Cholesterol 151 mg/dL (<200); Estimated Glomerular Filt Rate > 60; Glucose Fasting 152 mg/dL (60-99); HDL Cholesterol 50 mg/dL (>40); LDL Cholesterol Calculated 74 mg/dL (<100); Potassium 4.1 mmol/L (3.3-5.1); Sodium 142 mmol/L (135-145); Total Protein 7.1 g/dL (6.5-8.0); Triglycerides 137 mg/dL (<150)
[2024-09-08 12:11] LABS: TSH reflex Free T4 2.45 uIU/mL (0.32-4.0)
== END 2024-09-08 08:16 | disposition home or self-care (01) ==
LOC: HO.WFDLDS 08:15
PROVIDERS: Visit Provider Family Medicine
DX: Z00.00 Encounter for general adult medical examination without abnormal findings (principal); Z12.5 Encounter for screening for malignant neoplasm of prostate; R73.01 Impaired fasting glucose; I10 Essential (primary) hypertension
CPT/HCPCS: 36415; 80053; 80061; 81003; 82043; 82570; 83036; 84153; 84443; 85025

== ENCOUNTER 2024-09-11 08:54 | Outpatient (AMB) | payer MEDICARE, SELFPAY ==
[2024-09-11 08:55] VITALS: BP 130/76; PULSE 66; BMI 29.8
--- NOTE | 2024-09-11 08:55 | A.OFFVIS_ITS ---
Vital Signs 09/11/24 08:55 Height 5 ft 8 in Weight 195 lb 12.328 oz BMI 29.8 BP 130/76 Blood Pressure Location Rt brachial Position Standing Pulse 66 Pulse Source Pulse Oximeter Intake Visit Reasons: T2DM/Insulin/CONFIRMED Intake Note: Patient presents today for D2MT follow up visit. Last Diabetic Eye exam: 08/2024 Last Podiatry Visit: Doesn't have one Random Glucose: 162 mg/dl HgA1c: 7.4% 09/08/[address] Required: No Accompanied by: Self / Same As Patient Allergies red dye Allergy (Verified 09/11/24 09:05) Itchy Eyes Medication List - Last Reconciled 09/11/24 by Mariella Quinones PA-C aspirin (Adult Low Dose Aspirin) 81 mg PO DAILY blood sugar diagnostic (WhenU.comuch Verio test strips) As directed 2 times a day, 90 days blood-glucose meter (HydrostorTouch Verio Reflect Meter) USE TO TEST THREE TIMES DAILY(FREESTYLE NOT COVERED) blood-glucose sensor ([employer] ServiceStyle Ashley 3 Sensor device) Apply every 14 days As directed to monitor blood glucose insulin glargine (Lantus Solostar U-100 Insulin) 18 units (0.18 mL) subcut QPM 90 days insulin lispro (Humalog KwikPen (U-100) Insulin) inject 7 units subcutaneously with breakfast and lunch, inject 4 units with supper. lancets (WhenU.comuch Delica Plus Lancet) USE TO TEST THREE TIMES DAILY(FREESTYLE NOT COVERED) lisinopril 20 mg PO DAILY 90 days lorazepam 0.5 mg PO BID PRN 2 days metformin 1,000 mg (2 x 500 mg) PO BID 90 days metoprolol succinate ER (Toprol XL) 50 mg PO DAILY pen needle, diabetic (BD Ultra-Fine Micro Pen Needle) Daily As directed to treat high blood sugar, 90 days simvastatin 80 mg PO BEDTIME HPI HPI T2DM/Insulin/CONFIRMED: Details: Patient is a 69-year-old male with a significant past medical history of type 2 diabetes, hypertension, hyperlipidemia, CAD presenting today for diabetic follow-up. Endo: DM last A1c was 7.4. He is currently on Lantus 18 units nightly, Humalog 12, 12, 8 units t.i.d., metformin 1000 mg b.i.d. -he states that he adjusted his insulin to account for low blood sugars and high blood sugars. Over the last few weeks they have just been elevated. -Mounjaro was too expensive, trulicity was unavailable and recently was trialed on Ozempic but too expensive. - States blood sugars were better controlled when he was on Trulicity CGM- very high 28%, hyperglycemic 38%, in range 34%. Usage 94%, average glucose 210, G mi 8.3% hypoglycemia- nothing in the last few weeks. hyperglycemia- with meals he is on TERESA-inhibitor and statin. CV: Blood pressure today in the office is 130/76. He is on lisinopril 20 mg and metoprolol 50 mg. Cholesterol is controlled with simvastatin 80 mg. No myalgias. he has known heart disease and does follow with cardiology. No chest pain or shortness of breath. He is On aspirin. FOR[facility]LY [facility], [facility]1983 Medical History Murmur Elevated cholesterol HTN (hypertension) Diabetes Prolapsed hemorrhoids Surgical History H/O hemorrhoidectomy Hx of shoulder surgery Hx of total ankle replacement Family History Father Lung cancer Brother Cardiac defibrillator in place Diabetes Brother Cardiac defibrillator in place Diabetes Brother No known health problems Brother No known health problems Mother Diabetes Social History Housing: House Patient Tobacco Use Status: Never used Tobacco e-Cigarette/Vaping Use: Never Used Second Hand Smoke Exposure: No service: No Current occupational status: retired Current occupational exposures/hazards: No Cognitive needs: No Hearing needs: No Vision needs: No Physical Exam Vital Signs: Last Vital Signs Pulse 66 09/11/24 08:55 BP 130/76 09/11/24 08:55 BMI result Body Mass Index 29.8 Const Orientation/consciousness: patient oriented x3 Neck Neck: Yes no lymphadenopathy Thyroid: Thyroid normal Carotids: no bruits Resp Auscultation: clear to auscultation bilaterally Cardio Rate: regular rate Rhythm: regular rhythm Heart sounds: S1 normal heart sound present and S2 normal heart sound present Peripheral pulses: dorsalis pedis present Neuro General: patient oriented x3, gait normal and no focal motor deficits Extrem Other: Monofilament sensation intact bilaterally. Vibratory sensation intact bilaterally. Skin intact. General: Yes normal to inspection Results Reviewed Results Reviewed: Laboratory Last Values Glucose (Clinic) 162 mg/dL (60-115) H 09/11/24 09:07 Laboratory Tests 09/08/24 08:16 Sodium 142 Potassium 4.1 Chloride 106 Carbon Dioxide 29 Anion Gap 11 L BUN 15 Creatinine 0.96 Estimated GFR > 60 Estimat Average Glucose 166 Hemoglobin A1c % 7.4 H AST 25 ALT 26 Alkaline Phosphatase 58 Triglycerides 137 Cholesterol 151 LDL Cholesterol, Calc 74 HDL Cholesterol 50 Assessment & Plan Assessment & Plan (1) Poorly controlled type 2 diabetes mellitus: Code(s): E11.65 - Type 2 diabetes mellitus with hyperglycemia Category: Medical Plan: increase lantus to 25 units decrease humalog to 8 units will trial trulicity. He will let me know if this is too expensive Continue metformin (2) Insulin dependent type 2 diabetes mellitus: Code(s): E11.9 - Type 2 diabetes mellitus without complications; Z79.4 - watermaster (current) use of insulin Category: Medical Plan: as above (3) Essential hypertension: Code(s): I10 - Essential (primary) hypertension Category: Medical Plan: wnl. continue current plan (4) Hyperlipidemia: Code(s): E78.5 - Hyperlipidemia, unspecified Category: Medical Plan: reviewed labs. continue simvastatin Medications: New dulaglutide (Trulicity) 0.75 mg (0.5 mL) subcut QWEEK 2 mL 2RF blood-glucose meter,continuous ([employer] Ashley 3 Carriere) Use daily As directed to monitor blood glucose 1 ea 0RF E11.65 - Type 2 diabetes mellitus with hyperglycemia, E11.9 - Type 2 diabetes mellitus without complications, Z79.4 - watermaster (current) use of insulin glucagon 3 mg/actuation 3 mg intranasal ONCE PRN 1 ea 1RF hypoglycemia Changed From insulin lispro (Humalog KwikPen (U-100) Insulin) inject 7 units subcutaneously with breakfast and lunch, inject 4 units with supper. 45 mL 4RF To insulin lispro (Humalog KwikPen (U-100) Insulin) 8 units (0.08 mL) subcut TID 90 days 30 mL 4RF From insulin glargine (Lantus Solostar U-100 Insulin) 18 units (0.18 mL) subcut QPM 90 days 16.2 mL 3RF E11.9 - Type 2 diabetes mellitus without complications To insulin glargine (Lantus Solostar U-100 Insulin) 25 units (0.25 mL) subcut QPM 90 days 22.5 mL 3RF E11.9 - Type 2 diabetes mellitus without complications Refilled blood-glucose sensor (FreeStyle Ashley 3 Sensor device) Apply every 14 days As directed to monitor blood glucose 6 ea 3RF E11.9 - Type 2 diabetes mellitus without complications, Z79.4 - halfway (current) use of insulin Coding Level of Care Code Est Pt Level 4 (25841) Complex EM visit Add On G2211 Diagnoses Poorly controlled type 2 diabetes mellitus E11.65 Insulin dependent type 2 diabetes mellitus E11.9; Z79.4 Essential hypertension I10 Hyperlipidemia E78.5
[2024-09-11 09:11] LABS: Glucose, Whole Blood 162 mg/dL (60-115)
== END 2024-09-11 10:00 | disposition home or self-care (01) ==
PROVIDERS: PCP Family Medicine; Visit Provider Physician Assistant
DX: E11.65 Type 2 diabetes mellitus with hyperglycemia (principal); E11.9 Type 2 diabetes mellitus without complications; Z79.4 Long term (current) use of insulin; I10 Essential (primary) hypertension; E78.5 Hyperlipidemia, unspecified

== ENCOUNTER → 2024-09-11 08:54 | Outpatient (BNVA) | payer MEDICARE, SELFPAY | PROVIDERS: PCP Family Medicine; Visit Provider Physician Assistant | DX: E11.65 Type 2 diabetes mellitus with hyperglycemia (principal); E78.5 Hyperlipidemia, unspecified; I10 Essential (primary) hypertension; Z79.4 Long term (current) use of insulin | CPT/HCPCS: 82947; 99212 ==

== ENCOUNTER → 2024-09-15 07:56 | Outpatient (REF) | payer MEDICARE, SELFPAY ==
--- NOTE | 2024-09-15 07:59 | CA_ITS ---
Transthoracic Echocardiogram Patient (Last, First, Middle): Hugo Glasgow, Gender: Male Date of : 1955 Age: 69 Procedure Date: 09/15/2024 Procedure Type: Transthoracic Echocardiogram Location: OP Height: 170.18 cm Weight: 88.45 kg BSA: 2.00 m2 Heart Rate: 60 bpm BP: 130 / 72 mmHg Supervisor Volunteer Services: LYLY Referring MD: Michael Rubio MD Log Grader: Michael Rubio MD Symptoms: I35.0 - Nonrheumatic aortic (valve) stenosis Study Quality: Fair ECG Rhythm: Sinus Conclusions: - 1. Normal LV ejection fraction of 55-60% with impaired relaxation filling pattern 2. Moderate calcific aortic valve stenosis 3. No gross pericardial effusion Findings Left Ventricle Normal left ventricular size and systolic function. There is mildly increased left ventricular wall thickness. The visually estimated ejection fraction is between 55-60%. Spectral Doppler is indicative of an impaired relaxation filling pattern. E/E prime ratio is between 8 and 15 consistent with indeterminate filling pressures. Right Ventricle Normal right ventricular cavity size and systolic function. Atria Both atria are normal in size. There is no evidence of interatrial shunt. Aortic Valve There is moderate calcification of the aortic valve. There is moderate aortic valve stenosis. The peak aortic gradient is 40 mmHg.The mean gradient is 23 mmHg. The aortic valve area is 1.35 cm2. There is no aortic valve regurgitation. Mitral Valve There is mild anterior mitral leaflet thickening. There is trace mitral valve regurgitation. There is no mitral valve stenosis. Pulmonic Valve The pulmonic valve was not well visualized. Tricuspid Valve Likely normal tricuspid valve structure and function. Tricuspid regurgitation envelope is inadequate for calculation of right ventricular systolic pressure. Normal right atrial pressure. Great Vessels All visible segments of the aorta are normal in size. The pulmonary artery was not well visualized. There is no dilatation of the ascending aorta measuring 3.10 cm. Venous The inferior vena cava is normal in size and collapses greater than 50% with inspiration. Pericardium/Pleural There is no evidence of pericardial effusion. Prior Study Comparison No significant change compared to prior study dated: 09/04/2023. Measurements 2D Linear Measurements IVSd: 1.15 0.6-0.9/0.6-1.0 cm LVIDd: 3.81 3.9-5.3/4.2-5.9 cm LVIDd Index: 1.91 2.4-3.2/2.2-3.1 cm/m2 LVIDs: 2.61 2.0-3.6 cm LVPWd: 1.19 0.7-1.1 cm LA Diam: 4.40 2.7-3.8/3.0-4.0 cm LAIDs Index: 2.20 1.5-2.3 cm/m2 LV Mass: 184.39 67-162/88-224 g LV Mass Index: 92.20 43-95/49-115 g/m2 LVOT Diam: 2.30 3.0+(-)1.3 cm 2D Systolic Function EF 4C: 56.60 >55% EF 2C: 55.80 >55% EF BiP: 56.80 >55% Mitral Valve MV Pk E: 0.72 MV PK A: 0.64 MV Decel Time: 190.00 E/A: 1.10 E'Lateral: 5.98 E'Medial: 6.09 E/E' Med: 11.80 E/E' Lat: 12.00 PHT: 56.00 MVA PHT: 3.93 Decel Roane: 3.77 Aortic Valve AoV Pk Monroe: 3.16 AoV Mn Monroe: 2.27 AoV VTI: 0.70 AoV Pk Grad: 40.00 Aov Mn Grad: 23.00 LYNNE Cont.VTI: 1.35 LVOT LVOT Pk Monroe: 1.00 LVOT Mn Monroe: 0.73 LVOT VTI: 0.23 LVOT Pk Grad: 4.00 LVOT Mn Grad: 3.00 LVOT Diam: 2.30 LVOT Area: 4.15 Diastolic Function MV Pk E: 0.72 MV Pk A: 0.64 E/A: 1.10 E'Medial: 6.09 E/E' Med: 11.80 E' Laterial: 5.98 E/E' Lat: 12.00 Right Ventricle TAPSE (mm): 19.80 Tricuspid Valve RA Press: 8.00 Great Vessels Aorta Sinus of Valsalva: 3.40 2.0-3.5 cm Ao Asc: 3.10 2.1-3.4 cm Pulmonary Veins Pulm Vein S/D 1.20 Pulmonary Valve PV Pk Monroe: 0.99 Peak PV Grad: 4.00 Updated in Other Vendor System with Status of Final Michael Rubio MD electronically signed on 09/16/2024 4:36:12 PM with status of Final
== END ==
LOC: HO.CARD 07:56
PROVIDERS: PCP Family Medicine; Visit Provider Internal Medicine Cardiovascular Disease
DX: I35.0 Nonrheumatic aortic (valve) stenosis (principal)
CPT/HCPCS: 93306

== ENCOUNTER → 2024-09-15 07:59 | Outpatient (BNV) | payer MEDICARE, SELFPAY | PROVIDERS: PCP Family Medicine; Visit Provider Internal Medicine Cardiovascular Disease | DX: I35.0 Nonrheumatic aortic (valve) stenosis (principal); I35.8 Other nonrheumatic aortic valve disorders | CPT/HCPCS: 93306 ==

== ENCOUNTER 2024-09-18 09:00 | Outpatient (AMB) | payer MEDICARE, SELFPAY ==
--- NOTE | 2024-09-18 09:24 | MHC.PC.OV ---
Vital Signs 09/18/24 09:29 Height 5 ft 8 in Weight 194 lb 8 oz BMI 29.6 BP 130/70 Blood Pressure Location Rt brachial Position Sitting Respiration 16 Pulse 63 Pulse Source Pulse Oximeter Temp 98.2 F Temp Source Oral Pulse Oximetry (%) 98 Oxygen Delivery Method Room Air Intake Visit Reasons: Annual PE/ 3 mo f/u - see comments Intake Note: annual Allergies red dye Allergy (Verified 09/18/24 09:25) Itchy Eyes Tobacco use date assessed: 03/11/24 Dental Screening Dental Screen Date: 12/11/23 HPI Annual PE/ 3 mo f/u - see comments HPI Details 69 y/o male presents for a CPE with f/u labs and health maintenance. Labs drawn 09/08/24. Reviewed labs with pt. A1c 7.4%. He is on lispro 8 units, glargine 25 units, Jardiance 10mg, metformin 1000mg b.i.d. Continues following up with endocrinology. Triglycerides 137. TC 151. LDL 74. HDL 50. PSA 3.60. TSH 2.45. Notes he is up to date with his colon cancer screening. COUNT INCLUDES [facility] Medical History Murmur Elevated cholesterol HTN (hypertension) Diabetes Prolapsed hemorrhoids Surgical History H/O hemorrhoidectomy Hx of shoulder surgery Hx of total ankle replacement Family History Father Lung cancer Brother Cardiac defibrillator in place Diabetes Brother Cardiac defibrillator in place Diabetes Brother No known health problems Brother No known health problems Mother Diabetes Social History Housing: House Patient Tobacco Use Status: Never used Tobacco e-Cigarette/Vaping Use: Never Used Second Hand Smoke Exposure: No service: No Current occupational status: retired Current occupational exposures/hazards: No Cognitive needs: No Hearing needs: No Vision needs: No Questionnaire PHQ-9 Over the last 2 weeks, how often have you been bothered by any of the following problems? 1. Little interest or pleasure in doing things: not at all 2. Feeling down, depressed, or hopeless: not at all 3. Trouble falling or staying asleep, or sleeping too much: not at all 4. Feeling tired or having little energy: not at all 5. Poor appetite or overeating: not at all 6. Feeling bad about yourself - or that you are a failure or have let yourself or your family down: not at all 7. Trouble concentrating on things, such as reading the newspaper or watching television: not at all 8. Moving or speaking so slowly that other people could have noticed. Or the opposite - being so fidgety or restless that you have been moving around a lot more than usual: not at all 9. Thoughts that you would be better off or of hurting yourself in some way: not at all Total score: 0 Source: Developed by Drs. Kayden Ibarra, Marce Phelan, Sean Arciniega and colleagues, with an educational emerald from [employer]. Thrive Questionnaire Date Thrive assessed: 11/28/21 I am a: Patient What is your living situation today?: I have a steady place to live Within the past 12 months, did the food you bought not last and you didn't have the money to get more?: Never true Within the past 12 months, did you worry whether your food would run out before you got money to buy more?: Never true Do you have trouble paying for medicines?: No Do you have trouble getting transportation to medical appointments?: No Do you have trouble paying your heating and electricity bill?: No Do you have trouble taking care of your child, family member or friend?: No Do you have trouble with day-to-day activities such as bathing, preparing meals, shopping, managing finances, etc.?: No Are you currently unemployed and looking for a job?: No Are you interested in more education?: No Please select the resources that you would like help with: None Currently or been in a relationship where the following occur: No concerns reported THRIVE Score: 0 AUDIT C Alcohol Use Questionnaire (AUDIT-C) 1. How often do you have a drink containing alcohol?: 2-3 times a week 2. How many drinks containing alcohol do you have on a typical day when you are drinking?: 1 or 2 3. How often do you have six or more drinks on one occasion?: Monthly Total Score: 5 AUTUMN-7 AMB Questionnaire AUTUMN-7 Date AUTUMN - 7 assessed: 12/11/23 Feeling nervous, anxious, or on edge: 0 = Not at all Not being able to stop or control worryin = Not at all Worrying too much about different things: 0 = Not at all Trouble relaxin = Not at all Being so restless that it is hard to sit still: 0 = Not at all Becoming easily annoyed or irritable: 0 = Not at all Feeling afraid as if something awful might happen: 0 = Not at all Total AUTUMN-7 score (0-4 normal; 5-9 mild; 10-14 moderate; 15-21 severe): 0 Source: Developed by Drs. Kayden Ibarra, Marce Phelan, Sean Arciniega and colleagues, with an educational emerald from [employer]. Review of Systems Const Denies chills, Denies fatigue, Denies fever(s), Denies headache(s) and Denies weakness Eyes Denies change in vision ENT Denies dizziness, Denies headache(s), Denies hearing loss, Denies nasal congestion, Denies sinus pain, Denies sinus pressure and Denies sore throat Card Denies chest pain, Denies lightheadedness, Denies dyspnea and Denies other (palpitations) Resp Denies cough, Denies dyspnea and Denies wheezing GI Denies abdominal pain, Denies melena, Denies hematochezia, Denies change in bowel habits, Denies dyspepsia and Denies nausea Denies hematuria and Denies dysuria Musc Denies abnormal gait, Denies myalgias, Denies arthralgias, Denies numbness and Denies tingling Skin/Breast Denies rash, Denies unusual bruising and Denies wounds Neuro Denies abnormal gait, Denies dizziness, Denies headache(s), Denies memory loss, Denies numbness, Denies Sensory deficit (Neuro), Denies tingling and Denies weakness Psych Denies anxiety, Denies depression and Denies memory loss Endo Denies cold intolerance, Denies fatigue, Denies heat intolerance, Denies polydipsia and Denies polyuria Kael/Lymph Denies easy bleeding and Denies easy bruising Aller/Immun Denies wheezing Physical exam (Primary Care) Vital Signs: Last Vital Signs Temp 98.2 F 09/18/24 09:29 Pulse 63 09/18/24 09:29 Resp 16 09/18/24 09:29 BP 130/70 09/18/24 09:29 Pulse Ox 98 09/18/24 09:29 Oxygen Delivery Method Room Air 09/18/24 09:29 BMI result Body Mass Index 29.6 Tobacco/Smoking Status: Tobacco use Status Tobacco use date assessed 03/11/24 09/18/24 09:32 Patient Tobacco Use Status Never used Tobacco 09/18/24 09:32 e-Cigarette/Vaping Use Never Used 09/18/24 09:32 PHQ-9: PHQ-9 Score PHQ-9: Total score 0 09/18/24 09:34 Thrive Assessment: Date of Thrive Assessment Date Thrive assessed 11/28/21 09/18/24 09:32 Currently or been in a relationship where the following occur: No concerns reported Const General: no acute distress, well developed, alert and awake Nutritional Appearance: well nourished Orientation/consciousness: patient oriented x3 HENMT Head: Yes normocephalic and Yes atraumatic Ears: hearing grossly normal bilaterally and TM's normal bilaterally General nose exam: Normal external nose present and Normal nares present Mouth: Normal oral and palatal mucosa present and moist mucous membranes Teeth and gingiva: dentition normal Throat: Yes posterior oropharynx normal Eyes General: appearance normal, both eyes and all related structures Pupils: Equal, round and reactive pupils present and Pupil accommodation reflex normal EOM: EOMs intact bilaterally Neck Neck: Yes normal visual inspection, Yes no lymphadenopathy and Yes trachea midline Thyroid: Thyroid normal Carotids: no bruits Lymphatic: no lymphadenopathy noted Chest Chest palpation & inspection: normal inspection of the chest Resp Effort & Inspection: normal respiratory effort Auscultation: clear to auscultation bilaterally Cardio Rate: regular rate Rhythm: regular rhythm Heart sounds: S1 normal heart sound present, S2 normal heart sound present, no gallops, no murmurs and no rubs Bruits: no abdominal aortic bruits and no carotid bruits GI Palpation (GI): No Abdominal aortic bruit present, Soft to palpation, nontender, No hepatosplenomegaly present and No Rebound tenderness present Auscultation: normal bowel sounds General: Yes no CVA tenderness Back/Spine/Pelvis Back: no CVA tenderness Cervical Spine: cervical ROM normal and No Cervical spine tenderness Thoracic/Lumbar Spine: thoraco-lumbar ROM normal, No pain with thoraco-lumbar ROM, No thoracic spinal tenderness and No lumbar spinal tenderness Skin Lesions: no lesions Rashes: no rashes Trauma: no lacerations or abrasions Wounds: no wounds Nails: normal Neuro General: patient oriented x3 Cranial nerves: Yes Equal, round and reactive pupils present Cognition (Neuro): normal cognition Gait exam (Neuro): Normal gait present Motor exam (neuro): 5/5 motor strength present throughout Sensory Exam: No Sensory deficit (Neuro) Deep tendon reflexes (DTR's): Right patellar reflex intensity grade: 2+ and Left patellar reflex intensity grade: 2+ Extrem General: Yes normal to inspection and No edema Psych Appearance: grossly normal Affect: normal affect Attitude: cooperative Thought process: Normal thought process present Coding Level of Care Code Est Pt Level 3 (26741) Est Pt Prev Care >65y(01571) Diagnoses Adult general medical exam Z00.00 Essential hypertension I10 Hyperlipidemia E78.5 Insulin dependent type 2 diabetes mellitus E11.9; Z79.4 Coronary artery disease I25.10 Screening for prostate cancer Z12.5 Screening for colon cancer Z12.11 Assessment & Plan Assessment & Plan (1) Adult general medical exam: Code(s): Z00.00 - Encounter for general adult medical examination without abnormal findings Category: Medical Plan: 69-year-old?male?presents?for?complete?physical?exam Encouraged?healthy?diet?with?lifestyle?and?plenty?of?exercise (2) Essential hypertension: Code(s): I10 - Essential (primary) hypertension Category: Medical Plan: Blood?pressure?is?fairly?well?controlled.??Goal?is?less?than?130/80.??Patient?has?aortic?aneurysm?and?is?followed?by?cardiology. Continue?current?medication?regimen (3) Hyperlipidemia: Code(s): E78.5 - Hyperlipidemia, unspecified Category: Medical Plan: Lipids?are?controlled.??Goal?less?than?100? Continue?current?medication (4) Insulin dependent type 2 diabetes mellitus: Code(s): E11.9 - Type 2 diabetes mellitus without complications; Z79.4 - terminal supervisor (current) use of insulin Category: Medical Plan: A1c?remains?at?7.4%?but?patient?notes?that?he?is?not?getting?low?blood?sugars?as?he?was?at?prior?visit He?is?not?followed?by?endocrinology.??Follow-up?with?endocrinology?as?recommended.??No?medication?changes?made?today. (5) Coronary artery disease: Code(s): I25.10 - Atherosclerotic heart disease of [place] coronary artery without angina pectoris Category: Medical Plan: Followed?by?cardiology. Has?upcoming?appointment (6) Screening for prostate cancer: Code(s): Z12.5 - Encounter for screening for malignant neoplasm of prostate Category: Medical Plan: PSA?is?below?for?and?stable Asymptomatic Will?continue?screen?annually (7) Screening for colon cancer: Code(s): Z12.11 - Encounter for screening for malignant neoplasm of colon Category: Medical Plan: Patient?had?a?Cologuard?2?years?ago?which?was?negative Will?be?due?for?Cologuard?test?next?year
[2024-09-18 09:29] VITALS: BP 130/70; PULSE 63; RESP 16; TEMP 36.8; O2SAT 98; BMI 29.6
== END 2024-09-18 09:53 | disposition home or self-care (01) ==
PROVIDERS: PCP Family Medicine; Visit Provider Family Medicine
DX: Z00.00 Encounter for general adult medical examination without abnormal findings (principal); E11.69 Type 2 diabetes mellitus with other specified complication; Z79.4 Long term (current) use of insulin; I10 Essential (primary) hypertension; E78.5 Hyperlipidemia, unspecified; I25.10 Atherosclerotic heart disease of native coronary artery without angina pectoris; Z12.5 Encounter for screening for malignant neoplasm of prostate; Z12.11 Encounter for screening for malignant neoplasm of colon

== ENCOUNTER → 2024-09-18 09:00 | Outpatient (BNVA) | payer MEDICARE, SELFPAY | PROVIDERS: PCP Family Medicine; Visit Provider Family Medicine | DX: Z00.00 Encounter for general adult medical examination without abnormal findings (principal); I10 Essential (primary) hypertension; E78.5 Hyperlipidemia, unspecified; E11.9 Type 2 diabetes mellitus without complications; I25.10 Atherosclerotic heart disease of native coronary artery without angina pectoris; Z79.4 Long term (current) use of insulin | CPT/HCPCS: 96127; 99397 ==

== ENCOUNTER 2024-10-01 09:04 | Outpatient (AMB) | payer MEDICARE, SELFPAY ==
--- NOTE | 2024-10-01 09:19 | MHC.OFFVIS ---
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: No Allergies red dye Allergy (Verified 10/01/24 09:21) Itchy Eyes Medication List - Last Reconciled 10/01/24 by Michael Rubio MD aspirin (Adult Low Dose Aspirin) 81 mg PO DAILY blood sugar diagnostic (OneTouch Verio test strips) As directed 2 times a day, 90 days blood-glucose meter (OneTouch Verio Reflect Meter) USE TO TEST THREE TIMES DAILY(FREESTYLE NOT COVERED) blood-glucose meter,continuous (FreeStyle Ashley 3 [place]) Use daily As directed to monitor blood glucose blood-glucose sensor (FreeStyle Ashley 3 Sensor device) Apply every 14 days As directed to monitor blood glucose empagliflozin (Jardiance) 10 mg PO DAILY insulin glargine (Lantus Solostar U-100 Insulin) 25 units (0.25 mL) subcut QPM 90 days insulin lispro (Humalog KwikPen (U-100) Insulin) 8 units (0.08 mL) subcut TID 90 days lancets (CalixTouch Delica Plus Lancet) USE TO TEST THREE TIMES DAILY(FREESTYLE NOT COVERED) lisinopril 20 mg PO DAILY 90 days lorazepam 0.5 mg PO BID PRN 2 days metformin 1,000 mg (2 x 500 mg) PO BID 90 days metoprolol succinate ER (Toprol XL) 50 mg PO DAILY pantoprazole 50 mg PO DAILY pen needle, diabetic (BD Ultra-Fine Micro Pen Needle) Use 4x Daily As directed to treat high blood sugar, 90 days simvastatin 80 mg PO BEDTIME HPI Comments Details: Naveed comes for follow-up. He has been overall feeling well. He said he does get some shortness of breath when he over exerts himself but this quickly resolves with rest. Not had any chest discomfort. No lightheadedness, syncope. Denies any prolonged palpitation irregular heartbeat. Blood pressure is generally been well controlled. His diabetes is currently being adjusted by his user experience manager. Takes all his medications otherwise. No progressive symptoms at current point in time. Recent echocardiogram shows moderate aortic stenosis. [facility] Medical History Murmur Elevated cholesterol HTN (hypertension) Diabetes Prolapsed hemorrhoids Surgical History H/O hemorrhoidectomy Hx of shoulder surgery Hx of total ankle replacement Family History Father Lung cancer Brother Cardiac defibrillator in place Diabetes Brother Cardiac defibrillator in place Diabetes Brother No known health problems CHF (congestive heart failure) Brother No known health problems Mother Diabetes Social History Housing: House Patient Tobacco Use Status: Never used Tobacco e-Cigarette/Vaping Use: Never Used Second Hand Smoke Exposure: No service: No Current occupational status: retired Current occupational exposures/hazards: No Cognitive needs: No Hearing needs: No Vision needs: No Review of Systems ENT Reports dizziness Card Denies chest pain, Denies chest pain at rest, Denies chest pain with activity, Denies rapid heart rate, Denies pedal edema, Denies edema, Denies leg edema, Denies lightheadedness, Denies palpitations, Denies dyspnea, Denies dyspnea on exertion and Denies orthopnea Resp Denies cough, Denies dyspnea and Denies dyspnea on exertion GI Denies hematochezia and Denies change in stool character Musc Denies abnormal gait, Reports limited range of motion, Reports muscle cramps, Denies muscle weakness, Denies numbness, Denies radiating pain into limb, Denies stiffness and Denies tingling Neuro Denies Abnormal speech present, Denies abnormal gait, Reports dizziness, Denies numbness and Denies tingling Endo Denies palpitations Physical Exam Vital Signs: Last Vital Signs Pulse 61 10/01/24 09:20 BP 132/70 10/01/24 09:20 BMI result Body Mass Index 29.4 Const General: cooperative, comfortable, no acute distress, well developed, alert, awake and Physically active Nutritional Appearance: average body habitus Orientation/consciousness: patient oriented x3 Limitations: no limitations Neck Neck: Yes trachea midline, Yes supple and Yes no JVD Resp Effort & Inspection: normal respiratory effort Auscultation: clear to auscultation bilaterally Cardio Jugular venous distension: no JVD Palpation: normal PMI Rate: regular rate Rhythm: regular rhythm Heart sounds: S1 normal heart sound present, S2 normal heart sound present, no click, no gallops and Murmur heart sound present systolic mid, decrescendo, crescendo and at the base GI Auscultation: normal bowel sounds Skin General skin exam: no rashes or lesions noted Neuro General: patient oriented x3 and no focal motor deficits Speech: No Abnormal speech present Extrem General: Yes no clubbing, cyanosis or edema Assessment & Plan Assessment & Plan (1) Coronary artery disease: Code(s): I25.10 - Atherosclerotic heart disease of [place] coronary artery without angina pectoris Category: Medical Plan: Diffuse three-vessel coronary artery disease with severe stenosis of the ramus branch. No symptoms suggestive of angina at current point time. His shortness of breath may be anginal equivalent but this is not life-limiting at this point time. Continue low-dose aspirin therapy. Continue aggressive risk factor modification including aggressive diabetes control. Currently being managed by endocrinology. Target goal hemoglobin A1c less than 7%. His LDL was 74 which is slightly elevated. Encouraged to improved diet. Continue current high-intensity statin therapy. May consider switching to an alternative statin such as atorvastatin or rosuvastatin if he can not tolerate. Advised to call me with new symptoms. Continue aggressive blood pressure control. (2) Aortic stenosis, moderate: Code(s): I35.0 - Nonrheumatic aortic (valve) stenosis Category: Medical Plan: Aortic stenosis which remains moderate and not likely cause for his symptoms. At this point time advised to continue to monitor annually by echocardiogram. Continue aggressive vascular risk factor modifications above. Cardinal symptoms of aortic stenosis were discussed. Potential management was discussed. Will follow up in the clinic in 1 year's time, sooner p.r.n.. Thank you for allowing me to partake in his care Coding Level of Care Code Est Pt Level 4 (35618) Complex EM visit Add On G2211 Diagnoses Coronary artery disease I25.10 Aortic stenosis, moderate I35.0
[2024-10-01 09:20] VITALS: BP 132/70; PULSE 61; BMI 29.4
== END 2024-10-01 09:38 | disposition home or self-care (01) ==
PROVIDERS: PCP Family Medicine; Visit Provider Internal Medicine Cardiovascular Disease
DX: I25.10 Atherosclerotic heart disease of native coronary artery without angina pectoris (principal); I35.0 Nonrheumatic aortic (valve) stenosis
CPT/HCPCS: 99214; G2211

== ENCOUNTER → 2024-10-01 09:04 | Outpatient (BNVA) | payer MEDICARE, SELFPAY | PROVIDERS: PCP Family Medicine; Visit Provider Internal Medicine Cardiovascular Disease | DX: I25.10 Atherosclerotic heart disease of native coronary artery without angina pectoris (principal); I35.0 Nonrheumatic aortic (valve) stenosis | CPT/HCPCS: 99212 ==

== ENCOUNTER 2024-10-09 09:04 | Outpatient (AMB) | payer MEDICARE, SELFPAY ==
--- NOTE | 2024-10-09 09:05 | A.OFFVIS_ITS ---
Vital Signs 10/09/24 09:06 Height 5 ft 8 in Weight 199 lb 11.821 oz BMI 30.4 BP 136/74 Blood Pressure Location Lt brachial Position Sitting Pulse 86 Pulse Source Pulse Oximeter Intake Visit Reasons: T2DM/Confirmed Intake Note: Patient present today for Type 2 Diabetes Mellitus. Last Diabetic eye exam: 08/2024 Last Podiatry Visit: Doesn't have one. Random Glucose: 122 mg/dl HgA1C: 7.4% 09/08/24 Correctional Case Records Supervisor Required: No Accompanied by: Self / Same As Patient Allergies red dye Allergy (Verified 10/09/24 09:11) Itchy Eyes Medication List - Last Reconciled 10/09/24 by Mariella Quinones PA-C aspirin (Adult Low Dose Aspirin) 81 mg PO DAILY blood sugar diagnostic ([employer]AH Power SystemsTouch Verio test strips) As directed 2 times a day, 90 days blood-glucose meter ([employer] Power SystemsTouch Verio Reflect Meter) USE TO TEST THREE TIMES DAILY(FREESTYLE NOT COVERED) blood-glucose meter,continuous (FreeStyle Ashley 3 [place]) Use daily As directed to monitor blood glucose blood-glucose sensor (FreeStyle Ashley 3 Sensor device) Apply every 14 days As directed to monitor blood glucose empagliflozin (Jardiance) 10 mg PO DAILY insulin glargine (Lantus Solostar U-100 Insulin) 25 units (0.25 mL) subcut QPM 90 days insulin lispro (Humalog KwikPen (U-100) Insulin) 8 units (0.08 mL) subcut TID 90 days lancets ([employer] Power SystemsTouch Delica Plus Lancet) USE TO TEST THREE TIMES DAILY(FREESTYLE NOT COVERED) lisinopril 20 mg PO DAILY 90 days lorazepam 0.5 mg PO BID PRN 2 days metformin 1,000 mg (2 x 500 mg) PO BID 90 days metoprolol succinate ER (Toprol XL) 50 mg PO DAILY pantoprazole 50 mg PO DAILY pen needle, diabetic (BD Ultra-Fine Micro Pen Needle) Use 4x Daily As directed to treat high blood sugar, 90 days simvastatin 80 mg PO BEDTIME HPI HPI T2DM/Confirmed: Details: Patient is a 69-year-old male with a significant past medical history of type 2 diabetes, hypertension, hyperlipidemia, CAD presenting today for diabetic follow-up. Endo: DM last A1c was 7.4. He is currently on Lantus 25 units nightly, Humalog 8-10 units t.i.d., metformin 1000 mg b.i.d., jardiance 10 mg -he states that he adjusted his insulin to account for low blood sugars and high blood sugars. Over the last few weeks they have just been elevated. -Mounjaro was too expensive, trulicity was unavailable and recently was trialed on Ozempic but too expensive. - States blood sugars were better controlled when he was on Trulicity CGM- very high 18%, hyperglycemic 33%, in range 49%. Usage 96%, average glucose 192, G mi 7.9% hypoglycemia- nothing in the last few weeks. hyperglycemia- with meals he is on TERESA-inhibitor and statin. CV: Blood pressure today in the office is 130/76. He is on lisinopril 20 mg and metoprolol 50 mg. Cholesterol is controlled with simvastatin 80 mg. No myalgias. he has known heart disease and does follow with cardiology. No chest pain or shortness of breath. He is On aspirin. [facility] Medical History Murmur Elevated cholesterol HTN (hypertension) Diabetes Prolapsed hemorrhoids Surgical History H/O hemorrhoidectomy Hx of shoulder surgery Hx of total ankle replacement Family History Father Lung cancer Brother Cardiac defibrillator in place Diabetes Brother Cardiac defibrillator in place Diabetes Brother No known health problems CHF (congestive heart failure) Brother No known health problems Mother Diabetes Social History Housing: House Patient Tobacco Use Status: Never used Tobacco e-Cigarette/Vaping Use: Never Used Second Hand Smoke Exposure: No service: No Current occupational status: retired Current occupational exposures/hazards: No Cognitive needs: No Hearing needs: No Vision needs: No Physical Exam Vital Signs: Last Vital Signs Pulse 86 10/09/24 09:06 BP 136/74 10/09/24 09:06 BMI result Body Mass Index 30.4 Const Orientation/consciousness: patient oriented x3 HEENT Ears: hearing grossly normal bilaterally Neck Thyroid: Thyroid normal Lymphatic: no lymphadenopathy noted Resp Auscultation: clear to auscultation bilaterally Cardio Rate: regular rate Rhythm: regular rhythm Heart sounds: S1 normal heart sound present and S2 normal heart sound present Skin General skin exam: no rashes or lesions noted Neuro General: patient oriented x3, gait normal and no focal motor deficits Office Procedures Glucose Monitoring Details Details: see hpi [id number] - Glucose monitoring, continuous-physician I&R Procedure code (CPT) selection complete Assessment & Plan Assessment & Plan (1) Insulin dependent type 2 diabetes mellitus: Code(s): E11.9 - Type 2 diabetes mellitus without complications; Z79.4 - [facility] (current) use of insulin Category: Medical Plan: increased lantus to 30 units increase jardiance continue humalog f/u 3 months sooner prn labs prior (2) Essential hypertension: Code(s): I10 - Essential (primary) hypertension Category: Medical Plan: wnl continue plan (3) Hyperlipidemia: Code(s): E78.5 - Hyperlipidemia, unspecified Category: Medical Plan: continue plan Orders: Orders Comprehensive [place]. Panel Fast Today E11.9 - Type 2 diabetes mellitus without complications, I10 - Essential (primary) hypertension, Z79.4 - [facility] (current) use of insulin Microalbumin, Random (w Creat) Today E11.9 - Type 2 diabetes mellitus without complications, I10 - Essential (primary) hypertension, Z79.4 - [facility] (current) use of insulin Hemoglobin A1c Today E11.9 - Type 2 diabetes mellitus without complications, I10 - Essential (primary) hypertension, Z79.4 - tonal regulator (current) use of insulin Medications: New empagliflozin (Jardiance) 25 mg PO QAM 90 tabs 1RF blood-glucose sensor (FreeStyle Ashley 3 Plus Sensor device) Use daily As directed to monitor glucose 2 ea 5RF E08.29 - Diabetes mellitus due to underlying condition with other diabetic kidney complication, R80.9 - Proteinuri a, unspecified, Z79.4 - [facility] (current) use of insulin Changed From insulin glargine (Lantus Solostar U-100 Insulin) 25 units (0.25 mL) subcut QPM 90 days 22.5 mL 3RF E11.9 - Type 2 diabetes mellitus without complications To insulin glargine (Lantus Solostar U-100 Insulin) 30 units (0.3 mL) subcut QPM 90 days 30 mL 3RF E11.9 - Type 2 diabetes mellitus without complications Discontinued empagliflozin (Jardiance) Discontinued Reason: Doctor's Order 10 mg PO DAILY 30 tabs 1RF Coding Level of Care Code Est Pt Level 4 (30566) Diagnoses Insulin dependent type 2 diabetes mellitus E11.9; Z79.4 Essential hypertension I10 Hyperlipidemia E78.5 CPT Codes Details - CPT: 29004 - Glucose monitoring, continuous-physician I&R ([id number])
[2024-10-09 09:06] VITALS: BP 136/74; PULSE 86; BMI 30.4
[2024-10-09 09:18] LABS: Glucose, Whole Blood 122 mg/dL (60-115)
== END 2024-10-09 10:06 | disposition home or self-care (01) ==
PROVIDERS: PCP Family Medicine; Visit Provider Physician Assistant
DX: E11.9 Type 2 diabetes mellitus without complications (principal); Z79.4 Long term (current) use of insulin; I10 Essential (primary) hypertension; E78.5 Hyperlipidemia, unspecified

== ENCOUNTER → 2024-10-09 09:04 | Outpatient (BNVA) | payer MEDICARE, SELFPAY | PROVIDERS: PCP Family Medicine; Visit Provider Physician Assistant | DX: E11.9 Type 2 diabetes mellitus without complications (principal); I10 Essential (primary) hypertension; E78.5 Hyperlipidemia, unspecified; Z79.4 Long term (current) use of insulin | CPT/HCPCS: 82947; 99212 ==

== ENCOUNTER 2024-12-16 08:49 | Outpatient (AMB) | payer MEDICARE, SELFPAY ==
--- NOTE | 2024-12-16 09:11 | A.OFFVIS_ITS ---
VS Expanded 12/16/24 12:34 Height 5 ft 8 in Weight 200 lb BMI 30.4 Intake Visit Reasons: T2DM Allergies red dye Allergy (Verified 10/09/24 09:11) Itchy Eyes Nutrition Presentation Details: Pt presents for 6 m f/u for T2DM Pt reports doing well food frequency fruits: 0-1/d ve-3 x/wk starches >20 /d fish : 0-2x/wk dairy : 2-3/d physical activity: ADL etoh/smoking--- BS Monitoring Most Recent Diabetes Results: No Data to Display FOR[facility]LY [facility], [facility] Medical History Murmur Elevated cholesterol HTN (hypertension) Diabetes Prolapsed hemorrhoids Surgical History H/O hemorrhoidectomy Hx of shoulder surgery Hx of total ankle replacement Family History Father Lung cancer Brother Cardiac defibrillator in place Diabetes Brother Cardiac defibrillator in place Diabetes Brother No known health problems CHF (congestive heart failure) Brother No known health problems Mother Diabetes Social History Housing: House Patient Tobacco Use Status: Never used Tobacco e-Cigarette/Vaping Use: Never Used Second Hand Smoke Exposure: No service: No Current occupational status: retired Current occupational exposures/hazards: No Cognitive needs: No Hearing needs: No Vision needs: No Assessment & Plan Assessment & Plan (1) Poorly controlled type 2 diabetes mellitus: Code(s): E11.65 - Type 2 diabetes mellitus with hyperglycemia Category: Medical Plan: Review fiber rich foods ? Used wt : 87 kg Est kcal as per MSJ: 2200 (40% carb, 30% fat/prot) Est fluid needs: 2225 ml/d (25 ml/kg bw) Rec fiber: increase to 8-10 g per day and gradually increase to 35 g or as tolerated Rec Na: < 2000 mg /d Educate patient on: (R= Reviewed, V = verbalizes understanding N/R= Needs review N/A= not applicable) * Food sources of carbohydrates and serving adequate serving sizes : R ,V * Difference between complex carbohydrates and simple carbohydrates, role of fiber: R ,V * Differences between fats (MUFA/PUFA/saturated fats, trans fats) and food sources of various fats: R, V * Food sources of sodium and salt and healthy modifications for heart health and kidney health: R * Vitamins and minerals: R * How to interpret food labels: R * Healthy Plate method concept: R,V * Physical activity: benefits and precaution: R,V * prevention and treatment of hypoglycemia: R,V Patient Instructions: include fiber rich foods (legumes, fruits,whole grains) watching on portion sizes due tot its carb content keep hydrated , water with meals/snacks throughout the day Coding Level of Care Code Nutr Indiv Subseq (19372) Diagnoses Poorly controlled type 2 diabetes mellitus E11.65 Time Spent (min) 20
[2024-12-16 12:34] VITALS: BMI 30.4
== END 2024-12-16 09:36 | disposition home or self-care (01) ==
PROVIDERS: PCP Family Medicine; Visit Provider Dietitian, Registered
DX: E11.65 Type 2 diabetes mellitus with hyperglycemia (principal)

== ENCOUNTER → 2024-12-16 08:49 | Outpatient (BNVA) | payer MEDICARE, SELFPAY | PROVIDERS: PCP Family Medicine; Visit Provider Dietitian, Registered | DX: E11.65 Type 2 diabetes mellitus with hyperglycemia (principal); Z71.3 Dietary counseling and surveillance | CPT/HCPCS: 97803 ==

== ENCOUNTER 2024-12-17 08:59 | Outpatient (AMB) | payer MEDICARE, SELFPAY ==
--- NOTE | 2024-12-17 09:37 | A.OFFVIS_ITS ---
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: T2DM Package Sorter Required: No Accompanied by: Self / Same As Patient Allergies red dye Allergy (Verified 10/09/24 09:11) Itchy Eyes HPI Comprehensive Diabetes Asmnt Most Recent Diabetes Results: Microalb/Creat Ratio 6.5 ug/mg cr (<30) 09/08/24 Cholesterol 151 mg/dL (<200) 09/08/24 HDL Cholesterol 50 mg/dL (>40) 09/08/24 Triglycerides 137 mg/dL (<150) 09/08/24 Creatinine 0.96 mg/dL (0.5-1.4) 09/08/24 Blood Urea Nitrogen 15 mg/dL (9-16) 09/08/24 Sodium 142 mmol/L (135-145) 09/08/24 Potassium 4.1 mmol/L (3.3-5.1) 09/08/24 Chloride 106 mmol/L (96-108) 09/08/24 Carbon Dioxide 29 mmol/L (22-29) 09/08/24 Calcium 9.3 mg/dL (8.4-10.2) 09/08/24 AST 25 U/L (5-37) 09/08/24 ALT 26 U/L (0-40) 09/08/24 Total Protein 7.1 g/dL (6.5-8.0) 09/08/24 Albumin 4.2 g/dL (3.5-5.0) 09/08/24 FORMERLY [facility] Medical History Murmur Elevated cholesterol HTN (hypertension) Diabetes Prolapsed hemorrhoids Surgical History H/O hemorrhoidectomy Hx of shoulder surgery Hx of total ankle replacement Family History Father Lung cancer Brother Cardiac defibrillator in place Diabetes Brother Cardiac defibrillator in place Diabetes Brother No known health problems CHF (congestive heart failure) Brother No known health problems Mother Diabetes Social History Housing: House Patient Tobacco Use Status: Never used Tobacco e-Cigarette/Vaping Use: Never Used Second Hand Smoke Exposure: No service: No Current occupational status: retired Current occupational exposures/hazards: No Cognitive needs: No Hearing needs: No Vision needs: No Assessment & Plan Assessment & Plan (1) Poorly controlled type 2 diabetes mellitus: Code(s): E11.65 - Type 2 diabetes mellitus with hyperglycemia Plan: Personal Continuous Glucose Monitor: Patients CGM information reviewed, Pt uses [employer] with smartphone Sensor data: Hypoglycemia: ? 0% Hyperglycemia:? 31% Time in Range:? 59% Average glucose for the last 2 weeks? 175 mg/dL Patient is using Lantus 30 units daily Patient reports Humalog 8-12 units before meals, although script reads Humalog 8 units before meals Patient reports Mounjaro 2.5 mg was too expensive Patient's last A1c 7.4% in August 2024 Patient is having downward excursion overnight, wakes up primarily in target, but then experiencing postprandial hyperglycemia. Reviewed with patient action of Lantus and of Humalog Recommended patient increase breakfast dose of Humalog by 2 units, to see if this alleviates hyperglycemia. At supper he can also increase Humalog dose by 2 units, however if he begins having hypoglycemia overnight it is recommended that he reduce Lantus dose Reviewed with patient how to treat hypoglycemia with rule of 15s Reviewed how to interpret trend arrows Reminded patient that to check finger sticks if symptoms do not match sensor reading. Discussed lag time between finger stick and sensor data.? Patient able to insert sensor independently at home without issue.? Portions of this note were created using voice recognition software, please excuse any words or phrases that may have been misinterpreted. Patient Instructions: Patient will follow-up with customer service representative as needed Coding Level of Care Code Est Pt Level 1 (22148) Diagnoses Poorly controlled type 2 diabetes mellitus E11.65
== END 2024-12-17 09:39 | disposition home or self-care (01) ==
PROVIDERS: PCP Family Medicine; Visit Provider Registered Nurse Diabetes Educator
DX: E11.65 Type 2 diabetes mellitus with hyperglycemia (principal)

== ENCOUNTER → 2024-12-17 08:59 | Outpatient (BNVA) | payer MEDICARE, SELFPAY | PROVIDERS: PCP Family Medicine; Visit Provider Registered Nurse Diabetes Educator | DX: E11.65 Type 2 diabetes mellitus with hyperglycemia (principal); Z79.4 Long term (current) use of insulin | CPT/HCPCS: 99211 ==

== ENCOUNTER 2025-01-22 13:00 | Outpatient (AMB) | payer MEDICARE, SELFPAY ==
--- NOTE | 2025-01-22 13:02 | A.OFFVIS_ITS ---
Vital Signs 01/22/25 13:04 Height 5 ft 8 in Weight 198 lb 6.656 oz BMI 30.2 BP 130/80 Blood Pressure Location Rt brachial Position Sitting Pulse 63 Pulse Source Pulse Oximeter Pulse Oximetry (%) 97 Oxygen Delivery Method Room Air Intake Visit Reasons: T2DM Intake Note: Patient presents today for a follow-up on Type 2 Diabetes Mellitus: Last Diabetic eye exam was on: 08/2024 Last Podiatry exam was on: Patient does not see a Hospice Volunteer Coordinator Most recent HbA1c: 7.1%, 01/22/2025 Random Glucose- 181 mg/dL, Today Materials Mgmt Tech Required: No Accompanied by: Self / Same As Patient Allergies red dye Allergy (Verified 01/22/25 13:05) Itchy Eyes Medication List - Last Reconciled 01/22/25 by Mariella Quinones PA-C aspirin (Adult Low Dose Aspirin) 81 mg PO DAILY blood sugar diagnostic (Apax SolutionsTouch Verio test strips) As directed 2 times a day, 90 days blood-glucose meter (OneTouch Verio Reflect Meter) USE TO TEST THREE TIMES BARBARA Y(FREESTYLE NOT COVERED) blood-glucose meter,continuous (FreeStyle Ashley 3 Mountain) Use daily As directed to monitor blood glucose blood-glucose sensor (FreeStyle Ashley 3 Plus Sensor device) Use daily As directed to monitor glucose empagliflozin (Jardiance) 25 mg PO QAM insulin glargine (Lantus Solostar U-100 Insulin) 30 units (0.3 mL) subcut QPM 90 days insulin lispro (Humalog KwikPen (U-100) Insulin) 8 units (0.08 mL) subcut TID 90 days lancets (Apax SolutionsTouch Delica Plus Lancet) USE TO TEST THREE TIMES DAILY(FREESTYLE NOT COVERED) lisinopril 20 mg PO DAILY 90 days lorazepam 0.5 mg PO BID PRN 2 days metformin 1,000 mg (2 x 500 mg) PO BID 90 days metoprolol succinate ER 50 mg PO DAILY pantoprazole 50 mg PO DAILY pen needle, diabetic (BD Ultra-Fine Micro Pen Needle) Use 4x Daily As directed to treat high blood sugar, 90 days simvastatin 80 mg PO BEDTIME HPI HPI T2DM: Details: Patient is a 69-year-old male with a significant past medical history of type 2 diabetes, hypertension, hyperlipidemia, CAD presenting today for diabetic follow-up. Endo: His A1c today is 7.1. He is currently on Lantus 26 units nightly, Humalog 10 units t.i.d., metformin 1000 mg b.i.d., jardiance 25 mg -he states that he adjusted his insulin to account for low blood sugars and reduced his Lantus of the 26 units. He states his blood sugars were recently elevated because he went on a vacation and was drinking margaritas for the last couple of weeks. -Mounjaro was too expensive, trulicity was unavailable and recently was trialed on Ozempic but too expensive. - States blood sugars were better controlled when he was on Trulicity CGM- very high 27%, hyperglycemic 37%, in range 36%. Usage 92%, G mi 8.4% hypoglycemia- nothing in the last few weeks. hyperglycemia- with meals he is on TERESA-inhibitor and statin. CV: Blood pressure today in the office is 130/80. He is on lisinopril 20 mg and metoprolol 50 mg. Cholesterol is controlled with simvastatin 80 mg. No myalgias. he has known heart disease and does follow with cardiology. No chest pain or shortness of breath. He is On aspirin. [facility] Medical History Murmur Elevated cholesterol HTN (hypertension) Diabetes Prolapsed hemorrhoids Surgical History H/O hemorrhoidectomy Hx of shoulder surgery Hx of total ankle replacement Family History Father Lung cancer Brother Cardiac defibrillator in place Diabetes Brother Cardiac defibrillator in place Diabetes Brother No known health problems CHF (congestive heart failure) Brother No known health problems Mother Diabetes Social History Housing: House Patient Tobacco Use Status: Never used Tobacco e-Cigarette/Vaping Use: Never Used Second Hand Smoke Exposure: No service: No Current occupational status: retired Current occupational exposures/hazards: No Cognitive needs: No Hearing needs: No Vision needs: No Physical Exam Vital Signs: Last Vital Signs Pulse 63 01/22/25 13:04 BP 130/80 01/22/25 13:04 Pulse Ox 97 01/22/25 13:04 Oxygen Delivery Method Room Air 01/22/25 13:04 BMI result Body Mass Index 30.2 Const Orientation/consciousness: patient oriented x3 Neck Neck: Yes no lymphadenopathy Thyroid: Thyroid normal Carotids: no bruits Resp Auscultation: clear to auscultation bilaterally Cardio Rate: regular rate Rhythm: regular rhythm Heart sounds: S1 normal heart sound present and S2 normal heart sound present Peripheral pulses: dorsalis pedis present Neuro General: patient oriented x3, gait normal and no focal motor deficits Extrem Other: Monofilament sensation intact bilaterally. Vibratory sensation intact bilaterally but slightly diminished on the left. Skin intact. General: Yes normal to inspection Results AMB Hemoglobin A1c AMB Hemoglobin A1c 7.1 % Last Edit by TONYA Rojas on 01/22/25 13:19 Results Reviewed Results Reviewed: Laboratory Last Values Glucose (Clinic) 181 mg/dL (60-115) H 01/22/25 13:08 Hgb A1c (Clinic) 7.1 % (4.0-6.0) H 01/22/25 13:19 Laboratory Tests 09/08/24 10/09/24 08:16 09:14 Creatinine 0.96 Estimated GFR > 60 Glucose (Clinic) 122 H Hemoglobin A1c % 7.4 H AST 25 ALT 26 Triglycerides 137 Cholesterol 151 LDL Cholesterol, Calc 74 HDL Cholesterol 50 Assessment & Plan Assessment & Plan (1) Insulin dependent type 2 diabetes mellitus: Code(s): E11.9 - Type 2 diabetes mellitus without complications; Z79.4 - buttermaker continuous churn (current) use of insulin Category: Medical Plan: We will increase Lantus to 30 units and advised to start taking in the morning. Continue Humalog 10 units with meals Continue Jardiance 25 mg daily. Follow up in 3 months. Labs prior to appointment. Patient understands and agrees with the plan. (2) Essential hypertension: Code(s): I10 - Essential (primary) hypertension Category: Medical Plan: wnl continue current plan (3) Hypertriglyceridemia: Code(s): E78.1 - Pure hyperglyceridemia Category: Medical Plan: well controlled continue current plan Orders: Orders AMB Hemoglobin A1c Today E11.9 - Type 2 diabetes mellitus without complications, Z79.4 - buttermaker continuous churn (current) use of insulin Medications: Changed From insulin glargine (Lantus Solostar U-100 Insulin) 30 units (0.3 mL) subcut QPM 90 days 30 mL 3RF E11.9 - Type 2 diabetes mellitus without complications To insulin glargine (Lantus Solostar U-100 Insulin) 30 units (0.3 mL) subcut QAM 90 days 30 mL 3RF E11.9 - Type 2 diabetes mellitus without complications From insulin lispro (Humalog KwikPen (U-100) Insulin) 8 units (0.08 mL) subcut TID 90 days 30 mL 4RF To insulin lispro (Humalog KwikPen (U-100) Insulin) 10 units (0.1 mL) subcut TID 90 days 27 mL 4RF Refilled blood-glucose sensor (FreeStyle Ashley 3 Plus Sensor device) Use daily As directed to monitor glucose 2 ea 11RF E08.29 - Diabetes mellitus due to underlying condition with other diabetic kidney complication, R80.9 - Proteinuria, unspecified, Z79.4 - half-way (current) use of insulin Discontinued blood-glucose sensor (FreeStyle Ashley 3 Sensor device) Discontinued Reason: Duplicate Apply every 14 days As directed to monitor blood glucose 6 ea 3RF E11.9 - Type 2 diabetes mellitus without complications, Z79.4 - half-way (current) use of insulin Coding Level of Care Code Est Pt Level 4 (16717) Complex EM visit Add On G2211 Diagnoses Insulin dependent type 2 diabetes mellitus E11.9; Z79.4 Essential hypertension I10 Hypertriglyceridemia E78.1
[2025-01-22 13:04] VITALS: BP 130/80; PULSE 63; O2SAT 97; BMI 30.2
[2025-01-22 13:14] LABS: Glucose, Whole Blood 181 mg/dL (60-115)
== END 2025-01-22 13:43 | disposition home or self-care (01) ==
LOC: HO.ENCR 13:00
PROVIDERS: PCP Family Medicine; Visit Provider Physician Assistant
DX: E11.9 Type 2 diabetes mellitus without complications (principal); Z79.4 Long term (current) use of insulin; I10 Essential (primary) hypertension; E78.1 Pure hyperglyceridemia

== ENCOUNTER → 2025-01-22 13:00 | Outpatient (BNVA) | payer MEDICARE, SELFPAY | PROVIDERS: PCP Family Medicine; Visit Provider Physician Assistant | DX: E11.9 Type 2 diabetes mellitus without complications (principal); E78.1 Pure hyperglyceridemia; I10 Essential (primary) hypertension; Z79.4 Long term (current) use of insulin | CPT/HCPCS: 82947; 83036; 99212 ==

== ENCOUNTER 2025-02-10 10:26 | Outpatient (AMB) | payer MEDICARE, SELFPAY ==
--- NOTE | 2025-02-10 10:47 | MHC.PC.OV ---
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 Required: No Allergies red dye Allergy (Verified 02/10/25 10:51) Itchy Eyes Medication List - Last Reconciled 02/10/25 by Anoop Hammonds MD aspirin (Adult Low Dose Aspirin) 81 mg PO DAILY blood sugar diagnostic (Trading BlockTouch Verio test strips) As directed 2 times a day, 90 days blood-glucose meter (Trading BlockTouch Verio Reflect Meter) USE TO TEST THREE TIMES DAILY(FREESTYLE NOT COVERED) blood-glucose sensor (TwoChopStyle Ashley 3 Plus Sensor device) Use daily As directed to monitor glucose blood-glucose,burial needs salesperson,cont (FreeStyle Ashley 3 [place]) Use daily As directed to monitor blood glucose empagliflozin (Jardiance) 25 mg PO QAM insulin glargine (Lantus Solostar U-100 Insulin) 30 units (0.3 mL) subcut QAM 90 days insulin lispro (Humalog KwikPen (U-100) Insulin) 10 units (0.1 mL) subcut TID 90 days lancets (Trading BlockTouch Delica Plus Lancet) USE TO TEST THREE TIMES DAILY(FREESTYLE NOT COVERED) lisinopril 20 mg PO DAILY 90 days lorazepam 0.5 mg PO BID PRN 2 days metformin 1,000 mg (2 x 500 mg) PO BID 90 days metoprolol succinate ER 50 mg PO DAILY pantoprazole 50 mg PO DAILY pen needle, diabetic (BD Ultra-Fine Micro Pen Needle) Use 4x Daily As directed to treat high blood sugar, 90 days simvastatin 80 mg PO BEDTIME Tobacco use date assessed: 03/11/24 Fall risk assessment: No Falls in past year Last assessed Fall Risk: 02/10/25 Dental Screening Dental Screen Date: 12/11/23 HPI f/u diabetes, HTN - see comments HPI Details 69 y/o male presents to f/u diabetes, HTN. Hx of aortic aneurysm and followed by Cardiology. Last A1c 7.1% last month. He is followed by endocrinology. Blood pressure today 120/70, 74p. He notes he has been taking metoprolol 50mg, lisinopril 20mg. He notes metoprolol has been causing him fatigue. HPI Comments History of Present Illness Details Documentation assistance for Anoop Hammonds MD, was provided by Eddie Winkler,? Courier Delivery Driver on 02/10/2025 at 10:49 AM EST. I, Dr. Hammonds, have read, observed, and verified documentation. ? PFSH Medical History Murmur Elevated cholesterol HTN (hypertension) Diabetes Prolapsed hemorrhoids Surgical History H/O hemorrhoidectomy Hx of shoulder surgery Hx of total ankle replacement Family History Father Lung cancer Brother Cardiac defibrillator in place Diabetes Brother Cardiac defibrillator in place Diabetes Brother No known health problems CHF (congestive heart failure) Brother No known health problems Mother Diabetes Social History Housing: House Patient Tobacco Use Status: Never used Tobacco e-Cigarette/Vaping Use: Never Used Second Hand Smoke Exposure: No service: No Current occupational status: retired Current occupational exposures/hazards: No Cognitive needs: No Hearing needs: No Vision needs: No Questionnaire PHQ-9 Over the last 2 weeks, how often have you been bothered by any of the following problems? 1. Little interest or pleasure in doing things: not at all 2. Feeling down, depressed, or hopeless: not at all 3. Trouble falling or staying asleep, or sleeping too much: not at all 4. Feeling tired or having little energy: several days 5. Poor appetite or overeating: not at all 6. Feeling bad about yourself - or that you are a failure or have let yourself or your family down: not at all 7. Trouble concentrating on things, such as reading the newspaper or watching television: not at all 8. Moving or speaking so slowly that other people could have noticed. Or the opposite - being so fidgety or restless that you have been moving around a lot more than usual: not at all 9. Thoughts that you would be better off or of hurting yourself in some way: not at all Total score: 1 Depression Screening Interpretation: Negative Depression Screening Done: Yes 66257 - PHQ-9 Billing: Yes Source: Developed by Drs. Kayden Ibarra, Marce Phelan, Sean Arciniega and colleagues, with an educational emerald from [employer]. Thrive Questionnaire Date Thrive assessed: 02/10/25 I am a: Patient What is your living situation today?: I have a steady place to live Within the past 12 months, did the food you bought not last and you didn't have the money to get more?: Never true Within the past 12 months, did you worry whether your food would run out before you got money to buy more?: Never true Do you have trouble paying for medicines?: Yes Do you have trouble getting transportation to medical appointments?: No Do you have trouble paying your heating and electricity bill?: No Do you have trouble taking care of your child, family member or friend?: No Do you have trouble with day-to-day activities such as bathing, preparing meals, shopping, managing finances, etc.?: No Are you currently unemployed and looking for a job?: No Are you interested in more education?: No Please select the resources that you would like help with: Paying for medicine Currently or been in a relationship where the following occur: No concerns reported THRIVE Score: 0 AUDIT C Alcohol Use Questionnaire (AUDIT-C) 1. How often do you have a drink containing alcohol?: 2-3 times a week 2. How many drinks containing alcohol do you have on a typical day when you are drinking?: 1 or 2 3. How often do you have six or more drinks on one occasion?: Never Total Score: 3 Score Reviewed/Action Taken: Yes AUTUMN-7 AMB Questionnaire AUTUMN-7 Date AUTUMN - 7 assessed: 02/10/25 Feeling nervous, anxious, or on edge: 0 = Not at all Not being able to stop or control worryin = Not at all Worrying too much about different things: 0 = Not at all Trouble relaxin = Not at all Being so restless that it is hard to sit still: 0 = Not at all Becoming easily annoyed or irritable: 0 = Not at all Feeling afraid as if something awful might happen: 0 = Not at all Total AUTUMN-7 score (0-4 normal; 5-9 mild; 10-14 moderate; 15-21 severe): 0 Source: Developed by Drs. Kayden Ibarra, Marce Phelan, Sean Arciniega and colleagues, with an educational emerald from [employer]. AUTUMN-7 Assessment Billing AUTUMN-7 Assessment Tool: AUTUMN-7 Assessment 52817 Review of Systems Const Denies chills, Denies fatigue, Denies fever(s), Denies headache(s) and Denies weakness ENT Denies dizziness and Denies headache(s) Card Denies dyspnea Resp Denies cough, Denies dyspnea, Denies wheezing and Denies other (shortness of breath) Musc Denies numbness and Denies tingling Neuro Denies dizziness, Denies headache(s), Denies numbness, Denies tingling and Denies weakness Psych Denies anxiety and Denies depression Endo Denies fatigue Aller/Immun Denies wheezing Physical exam (Primary Care) Tobacco/Smoking Status: Tobacco use Status Tobacco use date assessed 03/11/24 02/10/25 10:49 Patient Tobacco Use Status Never used Tobacco 02/10/25 10:49 e-Cigarette/Vaping Use Never Used 02/10/25 10:49 PHQ-9: PHQ-9 Score PHQ-9: Total score 1 02/10/25 10:49 Depression Screening Interpretation: Negative Thrive Assessment: Date of Thrive Assessment Date Thrive assessed 01/29/25 02/10/25 10:49 Currently or been in a relationship where the following occur: No concerns reported Const General: well developed; No acute distress Nutritional Appearance: well nourished Orientation/consciousness: patient oriented x3 HENMT Head: Yes normocephalic and Yes atraumatic Eyes General: appearance normal, both eyes and all related structures Pupils: Equal, round and reactive pupils present EOM: EOMs intact bilaterally Resp Effort & Inspection: normal respiratory effort Neuro General: patient oriented x3 and gait normal Cranial nerves: Yes Equal, round and reactive pupils present Psych Affect: normal affect Coding Level of Care Code Est Pt Level 5 (01327) Diagnoses Insulin dependent type 2 diabetes mellitus E11.9; Z79.4 Essential hypertension I10 Coronary artery disease I25.10 Hyperlipidemia E78.5 Erectile dysfunction N52.9 Additional Codes AUTUMN-7 Assessment Billing - AUTUMN-7 Assessment Tool: AUTUMN-7 Assessment 27363 ([id number]) PHQ-9 - 33882 - PHQ-9 Billing: Yes ([id number]) Assessment & Plan Assessment & Plan (1) Insulin dependent type 2 diabetes mellitus: Code(s): E11.9 - Type 2 diabetes mellitus without complications; Z79.4 - watermaster (current) use of insulin Category: Medical Plan: A1c?improving?and?patient?had?recent?adjustment?of?his?Lantus?with?endocrinology. He?does?note?some?low?blood?sugars. He?also?notes?that?he?is?having?difficulty?with?the?connection?between?the?continuous?glucose?monitor?sensor?and?his?phone. Sent?a?script?for?the?Ashley?reader to?hopefully?solve?the?problem?of?were?connection?with?his?phone. No?medication?changes?made?today Follow-up?with?endocrinology?as?recommended. (2) Essential hypertension: Code(s): I10 - Essential (primary) hypertension Category: Medical Plan: Blood?pressure?is?well?controlled.??Goal?is?less?than?130/80 Continue?current?medication?regimen (3) Coronary artery disease: Code(s): I25.10 - Atherosclerotic heart disease of [place] coronary artery without angina pectoris Category: Medical Plan: History?of?coronary?artery?disease.??He?is?on?simvastatin?80?mg?daily. Last?check?of?LDL?was?slightly?above?goal We?discussed?switching?to?atorvastatin?and?will?do?so?today. Will?follow-up?on?lipids?in?a?few?months (4) Hyperlipidemia: Code(s): E78.5 - Hyperlipidemia, unspecified Category: Medical Plan: As above (5) Erectile dysfunction: Code(s): N52.9 - Male erectile dysfunction, unspecified Category: Medical Plan: Patient?notes?erectile?dysfunction. Does?not?have?vasculopathy.??Also?on?metformin?which?is?needed?for?his?cardiovascular?care. Not?on?nitrites. Can?trial?sildenafil. Risk/Benefits discussed Orders: Orders Comprehensive [place]. Panel Fast Today I25.10 - Atherosclerotic heart disease of [place] coronary artery without angina pectoris, Z00.00 - Encounter for general adult medical examination without abnormal findings Lipid Panel Today I25.10 - Atherosclerotic heart disease of [place] coronary artery without angina pectoris, Z00.00 - Encounter for general adult medical examination without abnormal findings Medications: New blood-glucose,burial needs salesperson,cont ([employer] [address] [place]) As directed 1 ea 0RF E11.65 - Type 2 diabetes mellitus with hyperglycemia atorvastatin 80 mg PO DAILY 90 days 90 tabs 3RF sildenafil administer 30 minutes to 4 hours before activity 50 mg PO DAILY 30 days PRN 7 tabs 0RF sexual activity Discontinued simvastatin Discontinued Reason: Doctor's Order 80 mg PO BEDTIME 90 tabs 0RF
[2025-02-10 10:49] VITALS: BP 120/70; PULSE 74; RESP 12; TEMP 36.5; O2SAT 96; BMI 30.6
== END 2025-02-10 11:09 | disposition home or self-care (01) ==
LOC: HO.HMCFM 10:26
PROVIDERS: PCP Family Medicine; Visit Provider Family Medicine
DX: E11.69 Type 2 diabetes mellitus with other specified complication (principal); Z79.4 Long term (current) use of insulin; I10 Essential (primary) hypertension; I25.10 Atherosclerotic heart disease of native coronary artery without angina pectoris; E78.5 Hyperlipidemia, unspecified; N52.9 Male erectile dysfunction, unspecified

== ENCOUNTER → 2025-02-10 10:26 | Outpatient (BNVA) | payer MEDICARE, SELFPAY | PROVIDERS: PCP Family Medicine; Visit Provider Family Medicine | DX: I10 Essential (primary) hypertension (principal); E11.9 Type 2 diabetes mellitus without complications; I25.10 Atherosclerotic heart disease of native coronary artery without angina pectoris; E78.5 Hyperlipidemia, unspecified; N52.9 Male erectile dysfunction, unspecified; Z79.4 Long term (current) use of insulin | CPT/HCPCS: 96127; 99212 ==

== ENCOUNTER 2025-03-31 09:45 | Outpatient (AMB) | payer MEDICARE, SELFPAY ==
--- NOTE | 2025-03-31 09:49 | A.OFFVIS_ITS ---
Vital Signs 03/31/25 09:50 Height 5 ft 8 in Weight 191 lb 12.835 oz BMI 29.2 BP 130/60 Blood Pressure Location Lt brachial Position Sitting Pulse 74 Pulse Source Monitor Intake Visit Reasons: 6m follow up Allergies red dye Allergy (Verified 02/10/25 10:51) Itchy Eyes Medication List - Last Reconciled 03/31/25 by Michael Rubio MD aspirin (Adult Low Dose Aspirin) 81 mg PO DAILY atorvastatin 80 mg PO DAILY 90 days blood sugar diagnostic ([employer] Verio test strips) As directed 2 times a day, 90 days blood-glucose meter (AOT Bedding Super HoldingsTouch Verio Reflect Meter) USE TO TEST THREE TIMES DAILY(FREESTYLE NOT COVERED) blood-glucose sensor (FreeStyle Ashley 3 Plus Sensor device) Use daily As directed to monitor glucose blood-glucose,wire drawing die maker,cont (FreeStyle Ashley 3 [place]) As directed blood-glucose,wire drawing die maker,cont (FreeStyle Ashley 3 [place]) Use daily As directed to monitor blood glucose insulin glargine (Lantus Solostar U-100 Insulin) 30 units (0.3 mL) subcut QAM 90 days insulin lispro (Humalog KwikPen (U-100) Insulin) 10 units (0.1 mL) subcut TID 90 days lancets (AOT Bedding Super HoldingsTouch Delica Plus Lancet) USE TO TEST THREE TIMES DAILY(FREESTYLE NOT COVERED) lisinopril 20 mg PO DAILY 90 days lorazepam 0.5 mg PO BID PRN 2 days metformin 1,000 mg (2 x 500 mg) PO BID 90 days metoprolol succinate ER 50 mg PO DAILY pantoprazole 50 mg PO DAILY pen needle, diabetic (BD Ultra-Fine Micro Pen Needle) Use 4x Daily As directed to treat high blood sugar, 90 days sildenafil 50 mg PO DAILY PRN 30 days HPI Comments Details: Hugo comes for follow-up. He complains of symptoms of fatigue and says the symptoms started since he was put on metoprolol therapy. Feels tired when he does stuff. No exertional chest pain or shortness of breath. No exertional lightheadedness. No orthopnea, PND, leg edema. Takes all his medications. Last LDL of 70 mg/dL. He says blood pressure is generally well controlled. [facility] Medical History Murmur Elevated cholesterol HTN (hypertension) Diabetes Prolapsed hemorrhoids Surgical History H/O hemorrhoidectomy Hx of shoulder surgery Hx of total ankle replacement Family History Father Lung cancer Brother Cardiac defibrillator in place Diabetes Brother Cardiac defibrillator in place Diabetes Brother No known health problems CHF (congestive heart failure) Brother No known health problems Mother Diabetes Social History Housing: House Patient Tobacco Use Status: Never used Tobacco e-Cigarette/Vaping Use: Never Used Second Hand Smoke Exposure: No service: No Current occupational status: retired Current occupational exposures/hazards: No Cognitive needs: No Hearing needs: No Vision needs: No Review of Systems Const Reports no additional complaints and Denies weakness ENT Reports no additional complaints and Denies dizziness Card Reports no additional complaints, Denies chest pain, Denies chest pain with activity, Denies syncope, Denies rapid heart rate, Denies pedal edema, Denies edema, Denies leg edema, Denies lightheadedness, Denies palpitations, Denies dyspnea, Denies dyspnea on exertion and Denies orthopnea Resp Denies cough, Denies dyspnea and Denies dyspnea on exertion GI Denies hematochezia and Denies change in stool character Musc Denies abnormal gait, Denies muscle cramps, Denies muscle weakness, Denies numbness, Denies radiating pain into limb and Denies tingling Neuro Denies Abnormal speech present, Denies abnormal gait, Denies dizziness, Denies syncope, Denies numbness, Denies tingling and Denies weakness Endo Denies palpitations Physical Exam Vital Signs: Last Vital Signs Pulse 74 03/31/25 09:50 BP 130/60 03/31/25 09:50 BMI result Body Mass Index 29.2 Const General: cooperative, comfortable, no acute distress, well developed, alert, awake and Physically active Nutritional Appearance: average body habitus Orientation/consciousness: patient oriented x3 Limitations: no limitations Neck Neck: Yes trachea midline, Yes supple and Yes no JVD Resp Effort & Inspection: normal respiratory effort Auscultation: clear to auscultation bilaterally Cardio Jugular venous distension: no JVD Palpation: normal PMI Rate: regular rate Rhythm: regular rhythm Heart sounds: S1 normal heart sound present, S2 normal heart sound present, no click, no gallops and Murmur heart sound present systolic mid, decrescendo, crescendo and at the base GI Auscultation: normal bowel sounds Skin General skin exam: no rashes or lesions noted Neuro General: patient oriented x3 and no focal motor deficits Speech: No Abnormal speech present Extrem General: Yes no clubbing, cyanosis or edema Office Procedures EKG Details: EKG shows normal sinus rhythm nonspecific T-wave changes [id number], Complete Assessment & Plan Assessment & Plan (1) Coronary artery disease: Code(s): I25.10 - Atherosclerotic heart disease of [place] coronary artery without angina pectoris Category: Medical Plan: Diffuse three-vessel coronary artery disease without any current concerning symptoms of angina. Continue lifelong aspirin therapy. Continue aggressive risk factor modification. LDL not well optimized with target of less than 55 mg/dL. Will add ezetimibe 10 mg to his regimen. Repeat lipid panel in 3 months time. Continue aggressive blood pressure control. Because of symptoms of fatigue I am lowering his metoprolol to 25 mg daily. Advised to monitor blood pressure at home and report any rising blood pressure which may need more intensification in his blood pressure management. Continue aggressive diabetes management goal hemoglobin A1c less than 7%. Encouraged to maintain activity level as tolerated. Advised to call me with any new symptoms. (2) Aortic stenosis, moderate: Code(s): I35.0 - Nonrheumatic aortic (valve) stenosis Category: Medical Plan: Aortic stenosis which is moderate. Currently clinically does not appear to have worsened. Follow-up echocardiogram 6 months time. Continue aggressive vascular risk factor modification as above. Cardinal symptoms associated with aortic stenosis were discussed. Follow up in the clinic in 6 months time, sooner p.r.n.. Thank you for allowing me to partake in his care Orders: Orders Lipid Panel 3 Months I25.10 - Atherosclerotic heart disease of [place] coronary artery without angina pectoris CA echo transthoracic complete 6 Months I35.0 - Nonrheumatic aortic (valve) stenosis Medications: New ezetimibe (Zetia) 10 mg PO DAILY 30 tabs 5RF Changed From metoprolol succinate ER 50 mg PO DAILY 90 tabs 3RF I35.0 - Nonrheumatic aortic (valve) stenosis To metoprolol succinate ER 25 mg (1/2 x 50 mg) PO DAILY 90 tabs 3RF I35.0 - Nonrheumatic aortic (valve) stenosis Coding Level of Care Code Est Pt Level 4 (17212) Complex EM visit Add On G2211 Diagnoses Coronary artery disease I25.10 Aortic stenosis, moderate I35.0 CPT Codes EKG - CPT: 79804-[id number], Complete ([id number])
[2025-03-31 09:50] VITALS: BP 130/60; PULSE 74; BMI 29.2
== END 2025-03-31 10:12 | disposition home or self-care (01) ==
LOC: HO.HCS 09:46
PROVIDERS: PCP Family Medicine; Visit Provider Internal Medicine Cardiovascular Disease
DX: I25.10 Atherosclerotic heart disease of native coronary artery without angina pectoris (principal); I35.0 Nonrheumatic aortic (valve) stenosis
CPT/HCPCS: 93010; 99214; G2211

== ENCOUNTER → 2025-03-31 09:45 | Outpatient (BNVA) | payer MEDICARE, SELFPAY | PROVIDERS: PCP Family Medicine; Visit Provider Internal Medicine Cardiovascular Disease | DX: I25.10 Atherosclerotic heart disease of native coronary artery without angina pectoris (principal); I35.0 Nonrheumatic aortic (valve) stenosis; R53.83 Other fatigue | CPT/HCPCS: 93005; 99212 ==

== ENCOUNTER 2025-04-23 10:57 | Outpatient (AMB) | payer MEDICARE, SELFPAY ==
--- NOTE | 2025-04-23 11:02 | MHC.OFFVIS ---
Vital Signs 04/23/25 11:03 Height 5 ft 8 in Weight 195 lb 8.8 oz BMI 29.7 BP 118/74 Blood Pressure Location Rt brachial Position Sitting Pulse 70 Pulse Source Pulse Oximeter Pulse Oximetry (%) 98 Oxygen Delivery Method Room Air Intake Visit Reasons: T2DM Intake Note: Patient present today for Type 2 Diabetes Mellitus Last Diabetic eye exam: 06/2024 Last Podiatry Visit: Doesn't have one Random Glucose: 223 mg/dl HgA1C: 7.0% Radio Division Lieutenant Required: No Accompanied by: Self / Same As Patient Allergies red dye Allergy (Verified 04/23/25 11:08) Itchy Eyes Medication List - Last Reconciled 04/23/25 by Mariella Quinones PA-C aspirin (Adult Low Dose Aspirin) 81 mg PO DAILY atorvastatin 80 mg PO DAILY 90 days blood sugar diagnostic ([employer] Verio test strips) As directed 2 times a day, 90 days blood-glucose meter ([employer] Verio Reflect Meter) USE TO TEST THREE TIMES DAILY(FREESTYLE NOT COVERED) blood-glucose sensor (FreeStyle Ashley 3 Plus Sensor device) Use daily As directed to monitor glucose blood-glucose,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 estate 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,cont (FreeStyle Ashley 3 [place]) As directed blood-glucose,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 estate 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,cont (FreeStyle Ashley 3 [place]) Use daily As directed to monitor blood glucose ezetimibe (Zetia) 10 mg PO DAILY insulin glargine (Lantus Solostar U-100 Insulin) 30 units (0.3 mL) subcut QAM 90 days insulin lispro (Humalog KwikPen (U-100) Insulin) 10 units (0.1 mL) subcut TID 90 days lancets (The 19th FloorTouch Delica Plus Lancet) USE TO TEST THREE TIMES DAILY(FREESTYLE NOT COVERED) lisinopril 20 mg PO DAILY 90 days lorazepam 0.5 mg PO BID PRN 2 days metformin 1,000 mg (2 x 500 mg) PO BID 90 days metoprolol succinate ER 25 mg (1/2 x 50 mg) PO DAILY pantoprazole 50 mg PO DAILY pen needle, diabetic (BD Ultra-Fine Micro Pen Needle) Use 4x Daily As directed to treat high blood sugar, 90 days sildenafil 50 mg PO DAILY PRN 30 days HPI HPI T2DM: Details: Patient is a 69-year-old male with a significant past medical history of type 2 diabetes, hypertension, hyperlipidemia, CAD presenting today for diabetic follow-up. Endo: His A1c today is 7.0. He is currently on Lantus 30 units qam, Humalog 10 units t.i.d., metformin 1000 mg b.i.d., jardiance 25 mg -Mounjaro was too expensive, trulicity was unavailable and recently was trialed on Ozempic but too expensive. - States blood sugars were better controlled when he was on Trulicity CGM- very high 20%, hyperglycemic 30%, in range 49%, 1% hypoglycemic. Usage 96%, G mi 7.9%, variability 38, average glucose 191 He states that he does not like the Ashley 3 +. He states that it is causing a rash every time he uses it on his arm. He has been applying hydrocortisone cream and states it feels like he is sensitive to the adhesive. He also notices that it loses signal a lot and he has a hard time unscrewing the caps. hypoglycemia- nothing in the last few weeks. hyperglycemia- with meals he is on TERESA-inhibitor and statin. CV: Blood pressure today in the office is 118/74. He is on lisinopril 20 mg and metoprolol 50 mg. Cholesterol is controlled with simvastatin 80 mg. No myalgias. he has known heart disease and does follow with cardiology. No chest pain or shortness of breath. He is On aspirin. [facility] Medical History Murmur Elevated cholesterol HTN (hypertension) Diabetes Prolapsed hemorrhoids Surgical History H/O hemorrhoidectomy Hx of shoulder surgery Hx of total ankle replacement Family History Father Lung cancer Brother Cardiac defibrillator in place Diabetes Brother Cardiac defibrillator in place Diabetes Brother No known health problems CHF (congestive heart failure) Brother No known health problems Mother Diabetes Social History Housing: House Patient Tobacco Use Status: Never used Tobacco e-Cigarette/Vaping Use: Never Used Second Hand Smoke Exposure: No service: No Current occupational status: retired Current occupational exposures/hazards: No Cognitive needs: No Hearing needs: No Vision needs: No Physical Exam Vital Signs: Last Vital Signs Pulse 70 04/23/25 11:03 BP 118/74 04/23/25 11:03 Pulse Ox 98 04/23/25 11:03 Oxygen Delivery Method Room Air 04/23/25 11:03 BMI result Body Mass Index 29.7 Const Orientation/consciousness: patient oriented x3 HEENT Ears: hearing grossly normal bilaterally Neck Thyroid: Thyroid normal Lymphatic: no lymphadenopathy noted Resp Auscultation: clear to auscultation bilaterally Cardio Rate: regular rate Rhythm: regular rhythm Heart sounds: S1 normal heart sound present and S2 normal heart sound present Skin Other: There are 2 circular, slightly erythematous and raised lesions noted on the left upper arm consistent with the Ashley 3 placement Neuro General: patient oriented x3, gait normal and no focal motor deficits Results AMB Hemoglobin A1c AMB Hemoglobin A1c 7.0 % Last Edit by TONYA Pope on 04/23/25 11:19 Results Reviewed Results Reviewed: Laboratory Last Values Glucose (Clinic) 223 mg/dL (60-115) H 04/23/25 11:10 Laboratory Tests 09/08/24 09/08/24 01/22/25 08:16 08:24 13:19 Sodium 142 Potassium 4.1 Chloride 106 Carbon Dioxide 29 Anion Gap 11 L BUN 15 Creatinine 0.96 Estimated GFR > 60 Estimat Average Glucose 166 Hgb A1c (Clinic) 7.1 H AST 25 ALT 26 Triglycerides 137 Cholesterol 151 LDL Cholesterol, Calc 74 HDL Cholesterol 50 Urine Creatinine 91.00 Urine Microalbumin 6.0 Microalb/Creat Ratio 6.5 Assessment & Plan Assessment & Plan (1) Poorly controlled type 2 diabetes mellitus: Code(s): E11.65 - Type 2 diabetes mellitus with hyperglycemia Category: Medical Plan: We will start Trulicity 0.75 mg weekly. He will let me know if this is too expensive. Continue regimen otherwise. I will start him on a Dexcom G7. We download of the wilver today. Sensor sent in to pharmacy. He is intolerant of the Ashley 3+. Noted the contact dermatitis on exam today. Advised patient to use the hydrocortisone cream twice a day times 7 days. (2) Essential hypertension: Code(s): I10 - Essential (primary) hypertension Category: Medical Plan: WNL. Continue current regimen (3) Hyperlipidemia: Code(s): E78.5 - Hyperlipidemia, unspecified Category: Medical Plan: Continue current regimen Orders: Orders AMB Hemoglobin A1c Today E11.65 - Type 2 diabetes mellitus with hyperglycemia, Z13.9 - Encounter for screening, unspecified Medications: New dulaglutide (Trulicity) 0.75 mg (0.5 mL) subcut QWEEK 2 mL 5RF blood-glucose sensor (Dexcom G7 Sensor device) Use daily As directed to monitor glucose. 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,cont (FreeStyle Ashley 3 [place]) Discontinued Reason: Doctor's Order As directed 1 ea 0RF E11.65 - Type 2 diabetes mellitus with hyperglycemia blood-glucose sensor (FreeStyle Ashley 3 Plus Sensor device) Discontinued Reason: Doctor's Order Use daily As directed to monitor glucose 2 ea 11RF E08.29 - Diabetes mellitus due to underlying condition with other diabetic kidney complication, R80.9 - Proteinuria, unspecified, Z79.4 - intermediate frame tender (current) use of insulin blood-glucose,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 estate 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,cont (FreeStyle Ashley 3 [place]) Discontinued Reason: Doctor's Order Use daily As directed to monitor blood glucose 1 ea 0RF E11.65 - Type 2 diabetes mellitus with hyperglycemia, E11.9 - Type 2 diabetes mellitus without complications, Z79.4 - intermediate frame tender (current) use of insulin Coding Level of Care Code Est Pt Level 4 (40557) Complex EM visit Add On G2211 Diagnoses Poorly controlled type 2 diabetes mellitus E11.65 Essential hypertension I10 Hyperlipidemia E78.5
[2025-04-23 11:03] VITALS: BP 118/74; PULSE 70; O2SAT 98; BMI 29.7
[2025-04-23 11:14] LABS: Glucose, Whole Blood 223 mg/dL (60-115)
== END 2025-04-23 11:38 | disposition home or self-care (01) ==
LOC: HO.ENCR 10:58
PROVIDERS: PCP Family Medicine; Visit Provider Physician Assistant
DX: E11.65 Type 2 diabetes mellitus with hyperglycemia (principal); I10 Essential (primary) hypertension; E78.5 Hyperlipidemia, unspecified; Z13.9 Encounter for screening, unspecified

== ENCOUNTER → 2025-04-23 10:57 | Outpatient (BNVA) | payer MEDICARE, SELFPAY | PROVIDERS: PCP Family Medicine; Visit Provider Physician Assistant | DX: E11.65 Type 2 diabetes mellitus with hyperglycemia (principal); E78.5 Hyperlipidemia, unspecified; I10 Essential (primary) hypertension | CPT/HCPCS: 82947; 83036; 99212 ==

== ENCOUNTER 2025-04-26 08:32 | Outpatient (REF) | payer MEDICARE, SELFPAY ==
[2025-04-26 11:53] LABS: Alanine Aminotransferase 29 U/L (0-40); Albumin Level 4.2 g/dL (3.5-5.0); Alkaline Phosphatase 62 U/L (39-117); Anion Gap 11 (12-20); Aspartate Amino Transferase 32 U/L (5-37); Bilirubin Total 0.9 mg/dL (0.0-1.0); Blood Urea Nitrogen 19 mg/dL (9-16); Calcium 9.1 mg/dL (8.4-10.2); Carbon Dioxide 27 mmol/L (22-29); Chloride 108 mmol/L (96-108); Cholesterol 92 mg/dL (<200); Estimated Glomerular Filt Rate > 60; Glucose Fasting 123 mg/dL (60-99); HDL Cholesterol 37 mg/dL (>40); LDL Cholesterol Calculated 26 mg/dL (<100); Potassium 4.1 mmol/L (3.3-5.1); Sodium 142 mmol/L (135-145); Total Protein 6.6 g/dL (6.5-8.0); Triglycerides 145 mg/dL (<150)
== END 2025-04-26 08:33 | disposition home or self-care (01) ==
LOC: HO.WFDLDS 08:32
PROVIDERS: Visit Provider Family Medicine
DX: Z00.00 Encounter for general adult medical examination without abnormal findings (principal); I25.10 Atherosclerotic heart disease of native coronary artery without angina pectoris
CPT/HCPCS: 36415; 80053; 80061

== ENCOUNTER 2025-05-14 08:41 | Outpatient (AMB) | payer MEDICARE, SELFPAY ==
--- NOTE | 2025-05-14 08:56 | MHC.PC.OV ---
Vital Signs 05/14/25 08:59 Height 5 ft 8 in Weight 192 lb BMI 29.2 BP 120/60 Blood Pressure Location Rt brachial Position Sitting Respiration 16 Pulse 65 Pulse Source Pulse Oximeter Temp 98.1 F Temp Source Oral Pulse Oximetry (%) 97 Oxygen Delivery Method Room Air Intake Visit Reasons: f/u HTN, diabetes, chronic conditions Intake Note: patient is scheduled to follow up for htn and dm Energy Professional Required: No Allergies red dye Allergy (Verified 05/14/25 08:57) Itchy Eyes Medication List - Last Reconciled 05/14/25 by Anoop Hammonds MD aspirin (Adult Low Dose Aspirin) 81 mg PO DAILY atorvastatin 80 mg PO DAILY 90 days blood sugar diagnostic ([employer] Verio test strips) As directed 2 times a day, 90 days blood-glucose meter ([employer] Verio Reflect Meter) USE TO TEST THREE TIMES DAILY(FREESTYLE NOT COVERED) blood-glucose sensor ([employer] G7 Sensor device) Use daily As directed to monitor glucose. change q 10 days dulaglutide (Trulicity) 0.75 mg (0.5 mL) subcut QWEEK ezetimibe (Zetia) 10 mg PO DAILY glucagon 3 mg/actuation 3 mg intranasal ONCE insulin glargine (Lantus Solostar U-100 Insulin) 30 units (0.3 mL) subcut QAM 90 days insulin lispro (Humalog KwikPen (U-100) Insulin) 10 units (0.1 mL) subcut TID 90 days lancets ([employer] System[employer] Delica Plus Lancet) USE TO TEST THREE TIMES DAILY(FREESTYLE NOT COVERED) lisinopril 20 mg PO DAILY 90 days lorazepam 0.5 mg PO BID PRN 2 days metformin 1,000 mg (2 x 500 mg) PO BID 90 days metoprolol succinate ER 25 mg (1/2 x 50 mg) PO DAILY pantoprazole 50 mg PO DAILY pen needle, diabetic (BD Ultra-Fine Micro Pen Needle) Use 4x Daily As directed to treat high blood sugar, 90 days sildenafil 75 mg (1.5 x 50 mg) PO DAILY PRN 30 days Tobacco use date assessed: 03/11/24 Dental Screening Dental Screen Date: 12/11/23 HPI f/u HTN, diabetes, chronic conditions HPI Details 69 y/o male presents to f/u HTN, diabetes, CAD/lipids and chronic conditions. Labs drawn 04/26/25. Reviewed labs with pt. Triglyceides 145. TC 92. LDL 26. HDL low at 37. He is on artovastatin 80mg daily. Blood pressure today 120/60, 65p. He is on lisinopril 20mg, metoprolol 25mg daily. A1c 04/23/25 7.0%. HPI Comments History of Present Illness Details Documentation assistance for Anoop Hammonds MD, was provided by Eddie Winkler,? Log Yard Derrick Operator on 05/14/2025 at 9:23 AM EST. I, Dr. Hammonds, have read, observed, and verified documentation. ?? [facility] Medical History Murmur Elevated cholesterol HTN (hypertension) Diabetes Prolapsed hemorrhoids Surgical History H/O hemorrhoidectomy Hx of shoulder surgery Hx of total ankle replacement Family History Father Lung cancer Brother Cardiac defibrillator in place Diabetes Brother Cardiac defibrillator in place Diabetes Brother No known health problems CHF (congestive heart failure) Brother No known health problems Mother Diabetes Social History Housing: House Patient Tobacco Use Status: Never used Tobacco e-Cigarette/Vaping Use: Never Used Second Hand Smoke Exposure: No service: No Current occupational status: retired Current occupational exposures/hazards: No Cognitive needs: No Hearing needs: No Vision needs: No Questionnaire Thrive Questionnaire Date Thrive assessed: 01/29/25 I am a: Patient What is your living situation today?: I have a steady place to live Within the past 12 months, did the food you bought not last and you didn't have the money to get more?: Never true Within the past 12 months, did you worry whether your food would run out before you got money to buy more?: Never true Do you have trouble paying for medicines?: Yes Do you have trouble getting transportation to medical appointments?: No Do you have trouble paying your heating and electricity bill?: No Do you have trouble taking care of your child, family member or friend?: No Do you have trouble with day-to-day activities such as bathing, preparing meals, shopping, managing finances, etc.?: No Are you currently unemployed and looking for a job?: No Are you interested in more education?: No Please select the resources that you would like help with: Paying for medicine Currently or been in a relationship where the following occur: No concerns reported THRIVE Score: 0 AUTUMN-7 AMB Questionnaire AUTUMN-7 Date AUTUMN - 7 assessed: 02/10/25 Source: Developed by Drs. Kayden Ibarra, Marce Phelan, Sean Arciniega and colleagues, with an educational emerald from [employer]. Physical exam (Primary Care) Vital Signs: Last Vital Signs Temp 98.1 F 05/14/25 08:59 Pulse 65 05/14/25 08:59 Resp 16 05/14/25 08:59 BP 120/60 05/14/25 08:59 Pulse Ox 97 05/14/25 08:59 Oxygen Delivery Method Room Air 05/14/25 08:59 BMI result Body Mass Index 29.2 Tobacco/Smoking Status: Tobacco use Status Tobacco use date assessed 03/11/24 05/14/25 09:03 Patient Tobacco Use Status Never used Tobacco 05/14/25 09:03 e-Cigarette/Vaping Use Never Used 05/14/25 09:03 Thrive Assessment: Date of Thrive Assessment Date Thrive assessed 01/29/25 05/14/25 09:03 Currently or been in a relationship where the following occur: No concerns reported Coding Level of Care Code Est Pt Level 4 (32647) Diagnoses Essential hypertension I10 Coronary artery disease I25.10 Hyperlipidemia E78.5 Diabetes E11.9 Erectile dysfunction N52.9 Assessment & Plan Assessment & Plan (1) Essential hypertension: Code(s): I10 - Essential (primary) hypertension Category: Medical Plan: Blood pressure is controlled. Goal is less than 130/80 Continue current medications (2) Coronary artery disease: Code(s): I25.10 - Atherosclerotic heart disease of [place] coronary artery without angina pectoris Category: Medical Plan: Stable (3) Hyperlipidemia: Code(s): E78.5 - Hyperlipidemia, unspecified Category: Medical Plan: LDL cholesterol was above goal and he Was switched from simvastatin to atorvastatin LDL now much lower but HDL is below goal Will have him take 1/2 tab of his atorvastatin 80 mg daily on Wednesdays and Saturdays and 1 tab on all other days Can recheck this prior to next visit (4) Diabetes: Code(s): E11.9 - Type 2 diabetes mellitus without complications Category: Medical Plan: A1c was 7.0% and improving at last check in late March. Endocrinology is working on getting him Trulicity - expect is blood sugar control will continue to improve. They have also gotten him a Dexcom which is working well. (5) Erectile dysfunction: Code(s): N52.9 - Male erectile dysfunction, unspecified Category: Medical Plan: Sildenafil was working at 50 mg her dose but he says he could use an increase in the dose. Can try 75 mg Plan Lantus 30 units qam, Humalog 10 units t.i.d., metformin 1000 mg b.i.d., jardiance 25 mg Medications: Changed From sildenafil administer 30 minutes to 4 hours before activity 50 mg PO DAILY 30 days PRN 7 tabs 0RF sexual activity To sildenafil administer 30 minutes to 4 hours before activity 75 mg (1.5 x 50 mg) PO DAILY 30 days PRN 12 tabs 0RF sexual activity Refilled sildenafil administer 30 minutes to 4 hours before activity 75 mg (1.5 x 50 mg) PO DAILY PRN 12 tabs 0RF sexual activity 30 days
[2025-05-14 08:59] VITALS: BP 120/60; PULSE 65; RESP 16; TEMP 36.7; O2SAT 97; BMI 29.2
== END 2025-05-14 09:40 | disposition home or self-care (01) ==
LOC: HO.HMCFM 08:42
PROVIDERS: PCP Family Medicine; Visit Provider Family Medicine
DX: I10 Essential (primary) hypertension (principal); I25.10 Atherosclerotic heart disease of native coronary artery without angina pectoris; E78.5 Hyperlipidemia, unspecified; E11.9 Type 2 diabetes mellitus without complications; N52.9 Male erectile dysfunction, unspecified

== ENCOUNTER → 2025-05-14 08:41 | Outpatient (BNVA) | payer MEDICARE, SELFPAY | PROVIDERS: PCP Family Medicine; Visit Provider Family Medicine | DX: I10 Essential (primary) hypertension (principal); I25.10 Atherosclerotic heart disease of native coronary artery without angina pectoris; E78.5 Hyperlipidemia, unspecified; E11.9 Type 2 diabetes mellitus without complications; N52.9 Male erectile dysfunction, unspecified | CPT/HCPCS: 99212 ==

== ENCOUNTER 2025-06-16 08:56 | Outpatient (AMB) | payer MEDICARE, SELFPAY ==
--- NOTE | 2025-06-16 09:06 | A.OFFVIS_ITS ---
VS Expanded 06/16/25 09:10 Height 5 ft 8 in Weight 191 lb 5.78 oz BMI 29.1 Intake Visit Reasons: T2DM Allergies red dye Allergy (Verified 05/14/25 08:57) Itchy Eyes Nutrition Presentation Details: Pt presents for 6 m MNT for T2DM Pt reports doing well, working on mindful eating, reducing on empty calorie foods and following healthy plate method, Most recent A1c 7.0% on 03/2025. Pt has questions regarding fiber source of foods BS Monitoring Most Recent Diabetes Results: Cholesterol, (<200) 92 mg/dL 04/26/25 HDL Cholesterol, (>40) 37 mg/dL L 04/26/25 Triglycerides, (<150) 145 mg/dL 04/26/25 Creatinine, (0.5-1.4) 1.09 mg/dL 04/26/25 BUN, (9-16) 19 mg/dL H 04/26/25 Sodium, (135-145) 142 mmol/L 04/26/25 Potassium, (3.3-5.1) 4.1 mmol/L 04/26/25 Chloride, (96-108) 108 mmol/L 04/26/25 Carbon Dioxide, (22-29) 27 mmol/L 04/26/25 Calcium, (8.4-10.2) 9.1 mg/dL 04/26/25 AST, (5-37) 32 U/L 04/26/25 ALT, (0-40) 29 U/L 04/26/25 Total Protein, (6.5-8.0) 6.6 g/dL 04/26/25 Albumin, (3.5-5.0) 4.2 g/dL 04/26/25 [facility] Medical History Murmur Elevated cholesterol HTN (hypertension) Diabetes Prolapsed hemorrhoids Surgical History H/O hemorrhoidectomy Hx of shoulder surgery Hx of total ankle replacement Family History Father Lung cancer Brother Cardiac defibrillator in place Diabetes Brother Cardiac defibrillator in place Diabetes Brother No known health problems CHF (congestive heart failure) Brother No known health problems Mother Diabetes Social History Housing: House Patient Tobacco Use Status: Never used Tobacco e-Cigarette/Vaping Use: Never Used Second Hand Smoke Exposure: No service: No Current occupational status: retired Current occupational exposures/hazards: No Cognitive needs: No Hearing needs: No Vision needs: No Assessment & Plan Assessment & Plan (1) Poorly controlled type 2 diabetes mellitus: Code(s): E11.65 - Type 2 diabetes mellitus with hyperglycemia Category: Medical Plan: Review fiber rich foods ? Used wt : 87 kg Est kcal as per MSJ: 2200 (40% carb, 30% fat/prot) Est fluid needs: 2225 ml/d (25 ml/kg bw) Rec fiber: increase to 8-10 g per day and gradually increase to 35 g or as tolerated Rec Na: < 2000 mg /d Educate patient on: (R= Reviewed, V = verbalizes understanding N/R= Needs review N/A= not applicable) * Food sources of carbohydrates and serving adequate serving sizes : R ,V * Difference between complex carbohydrates and simple carbohydrates, role of fiber: R ,V * Differences between fats (MUFA/PUFA/saturated fats, trans fats) and food sources of various fats: R, V * Food sources of sodium and salt and healthy modifications for heart health and kidney health: R * Vitamins and minerals: R * How to interpret food labels: R * Healthy Plate method concept: R,V * Physical activity: benefits and precaution: R,V * prevention and treatment of hypoglycemia: R,V Patient Instructions: Include fiber sources of foods; soluble fiber: apples, beans, lentils, brussel sprout, fiber supplement like metamucil 1-2 tsp a day mixed in 8 oz of water Gradually increase fiber by 4 g up to 18 g or as tolerated. Remember to increase fluids (water, low sugar fluids) and keep physically active to prevent constipation as you increase fiber continue monitoring blood sugar, follow rule of 15 if developing low blood sugar and report low blood sugar events to your doctor for further assessment. and work on preventing elevated blood sugar, contact your doctor if blood sugar consistently above 130 in the fasting state and greater than 180, 2 hours after a meal , for further asessment Coding Level of Care Code Nutr Indiv Subseq (39400) Diagnoses Poorly controlled type 2 diabetes mellitus E11.65 Time Spent (min) 30
[2025-06-16 09:10] VITALS: BMI 29.1
== END 2025-06-16 10:35 | disposition home or self-care (01) ==
LOC: HO.ENCR 08:56
PROVIDERS: PCP Family Medicine; Visit Provider Dietitian, Registered
DX: E11.65 Type 2 diabetes mellitus with hyperglycemia (principal)

== ENCOUNTER → 2025-06-16 08:56 | Outpatient (BNVA) | payer MEDICARE, SELFPAY | PROVIDERS: PCP Family Medicine; Visit Provider Dietitian, Registered | DX: E11.65 Type 2 diabetes mellitus with hyperglycemia (principal); Z71.3 Dietary counseling and surveillance | CPT/HCPCS: 97803 ==

== ENCOUNTER 2025-07-23 10:43 | Outpatient (AMB) | payer MEDICARE, SELFPAY ==
--- NOTE | 2025-07-23 10:44 | A.OFFVIS_ITS ---
Vital Signs 07/23/25 10:45 Height 5 ft 8 in Weight 196 lb 6.91 oz BMI 29.9 BP 120/78 Blood Pressure Location Rt brachial Position Sitting Pulse 76 Pulse Source Pulse Oximeter Pulse Oximetry (%) 97 Oxygen Delivery Method Room Air Intake Visit Reasons: T2DM Intake Note: Patient present today for Type 2 Diabetes Mellitus Last Diabetic eye exam:07/2025 Last Podiatry Visit: doesnt have one Random Glucose: 192mg/dl HgA1C:7.6% Accompanied by: Self / Same As Patient Allergies red dye Allergy (Verified 07/23/25 10:45) Itchy Eyes HPI HPI T2DM: Details: Patient is a 69-year-old male with a significant past medical history of type 2 diabetes, hypertension, hyperlipidemia, CAD presenting today for diabetic follow-up. Endo: His A1c today is 7.6. He is currently on Lantus 30 units qam, Humalog 10 units t.i.d., metformin 1000 mg b.i.d., jardiance 25 mg -Mounjaro was too expensive, trulicity was unavailable and recently was trialed on Ozempic but too expensive. - States blood sugars were better controlled when he was on Trulicity. Paperwork was filled out for him to have a 0 co-pay. Faxed over today and he will let me know if he is able to get this without difficulty CGM- very high 14%, hyperglycemic 34%, in range 51%, 2% hypoglycemic. Usage 96%, G mi 7.7%, variability 38, average glucose 182 He states that he does not like the Ashley 3 +. He states that it is causing a rash every time he uses it on his arm. He has been applying hydrocortisone cream and states it feels like he is sensitive to the adhesive. He also notices that it loses signal a lot and he has a hard time unscrewing the caps. hypoglycemia- nothing in the last few weeks. hyperglycemia- with meals he is on TERESA-inhibitor and statin. CV: Blood pressure today in the office is 120/78. He is on lisinopril 20 mg and metoprolol 50 mg. Cholesterol is controlled with simvastatin 80 mg. No myalgias. he has known heart disease and does follow with cardiology. No chest pain or shortness of breath. He is On aspirin. [facility] Medical History Murmur Elevated cholesterol HTN (hypertension) Diabetes Prolapsed hemorrhoids Surgical History H/O hemorrhoidectomy Hx of shoulder surgery Hx of total ankle replacement Family History Father Lung cancer Brother Cardiac defibrillator in place Diabetes Brother Cardiac defibrillator in place Diabetes Brother No known health problems CHF (congestive heart failure) Brother No known health problems Mother Diabetes Social History Housing: House Patient Tobacco Use Status: Never used Tobacco e-Cigarette/Vaping Use: Never Used Second Hand Smoke Exposure: No service: No Current occupational status: retired Current occupational exposures/hazards: No Cognitive needs: No Hearing needs: No Vision needs: No Physical Exam Vital Signs: Last Vital Signs Pulse 76 07/23/25 10:45 Pulse Ox 97 07/23/25 10:45 Oxygen Delivery Method Room Air 07/23/25 10:45 BMI result Body Mass Index 29.9 Const Orientation/consciousness: patient oriented x3 HEENT Ears: hearing grossly normal bilaterally Neck Thyroid: Thyroid normal Lymphatic: no lymphadenopathy noted Resp Auscultation: clear to auscultation bilaterally Cardio Rate: regular rate Rhythm: regular rhythm Heart sounds: S1 normal heart sound present and S2 normal heart sound present Skin General skin exam: no rashes or lesions noted Neuro General: patient oriented x3, gait normal and no focal motor deficits Results AMB Hemoglobin A1c AMB Hemoglobin A1c 7.6 % Last Edit by TONYA Rojas on 07/23/25 11:05 Assessment & Plan Assessment & Plan (1) Poorly controlled type 2 diabetes mellitus: Code(s): E11.65 - Type 2 diabetes mellitus with hyperglycemia Category: Medical Plan: We will start Trulicity. Paperwork faxed over today. Continue current regimen otherwise Dexcom sensor provided to him I have refilled Dexcom and sent to mail order pharmacy We will do a short term follow up to be reassessed. Lab work prior. He will follow up sooner if needed. (2) Essential hypertension: Code(s): I10 - Essential (primary) hypertension Category: Medical Plan: WNL. Continue current regimen Orders: Orders AMB Hemoglobin A1c Today E11.65 - Type 2 diabetes mellitus with hyperglycemia Medications: Refilled blood-glucose sensor (Dexcom G7 Sensor device) Use daily As directed to monitor glucose. change q 10 days 9 ea 3RF E11.65 - Type 2 diabetes mellitus with hyperglycemia, Z79.4 - shelter (current) use of insulin Coding Level of Care Code Est Pt Level 4 (97268) Complex EM visit Add On G2211 Diagnoses Poorly controlled type 2 diabetes mellitus E11.65 Essential hypertension I10
[2025-07-23 10:45] VITALS: BP 120/78; PULSE 76; O2SAT 97; BMI 29.9
[2025-07-23 11:00] LABS: Glucose, Whole Blood 192 mg/dL (60-115)
== END 2025-07-23 11:20 | disposition home or self-care (01) ==
LOC: HO.ENCR 10:43
PROVIDERS: PCP Family Medicine; Visit Provider Physician Assistant
DX: E11.65 Type 2 diabetes mellitus with hyperglycemia (principal); I10 Essential (primary) hypertension

== ENCOUNTER → 2025-07-23 10:43 | Outpatient (BNVA) | payer MEDICARE, SELFPAY | PROVIDERS: PCP Family Medicine; Visit Provider Physician Assistant | DX: E11.65 Type 2 diabetes mellitus with hyperglycemia (principal); I10 Essential (primary) hypertension; E78.5 Hyperlipidemia, unspecified; Z79.4 Long term (current) use of insulin | CPT/HCPCS: 82947; 83036; 99212 ==

== ENCOUNTER 2025-09-01 08:10 | Outpatient (REF) | payer MEDICARE, SELFPAY ==
[2025-09-01 11:59] LABS: Alanine Aminotransferase 28 U/L (0-40); Albumin Level 4.5 g/dL (3.5-5.0); Alkaline Phosphatase 65 U/L (39-117); Anion Gap 14 (12-20); Aspartate Amino Transferase 31 U/L (5-37); Blood Urea Nitrogen 14 mg/dL (9-16); Calcium 9.3 mg/dL (8.4-10.2); Carbon Dioxide 26 mmol/L (22-29); Chloride 105 mmol/L (96-108); Cholesterol 107 mg/dL (<200); Estimated Glomerular Filt Rate > 60; HDL Cholesterol 41 mg/dL (>40); Potassium 4.3 mmol/L (3.3-5.1); Sodium 141 mmol/L (135-145); Total Protein 7.1 g/dL (6.5-8.0); Triglycerides 152 mg/dL (<150)
== END 2025-09-01 08:11 | disposition home or self-care (01) ==
LOC: HO.WFDLDS 08:10
PROVIDERS: Visit Provider Family Medicine
DX: Z00.00 Encounter for general adult medical examination without abnormal findings (principal); I25.10 Atherosclerotic heart disease of native coronary artery without angina pectoris; E78.5 Hyperlipidemia, unspecified
CPT/HCPCS: 36415; 80053; 80061; 83721

== ENCOUNTER 2025-09-07 15:35 | Outpatient (AMB) | payer MEDICARE, SELFPAY ==
--- NOTE | 2025-09-07 16:11 | A.OFFPC_ITS ---
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 Blood pressure today 110/70, 71p. He is on metoprolol 25mg, lisinopril 20mg daily. Last A1c in June. Had seen Endocrinology and had started him on Trulicity. Denies any issues with this. HPI Comments History of Present Illness Details Documentation assistance for Anoop Hammonds MD, was provided by Eddie Winkler, [employer] on 09/07/2025 at 4:49 PM EST. I, Dr. Hammonds, have read, observed, and verified documentation. [facility] Medical History Murmur Elevated cholesterol HTN (hypertension) Diabetes Prolapsed hemorrhoids Surgical History H/O hemorrhoidectomy Hx of shoulder surgery Hx of total ankle replacement Family History Father Lung cancer Brother Cardiac defibrillator in place Diabetes Brother Cardiac defibrillator in place Diabetes Brother No known health problems CHF (congestive heart failure) Brother No known health problems Mother Diabetes Social History Housing: House Patient Tobacco Use Status: Never used Tobacco e-Cigarette/Vaping Use: Never Used Second Hand Smoke Exposure: No service: No Current occupational status: retired Current occupational exposures/hazards: No Cognitive needs: No Hearing needs: No Vision needs: No Questionnaire Thrive Questionnaire Date Thrive assessed: 01/29/25 I am a: Patient What is your living situation today?: I have a steady place to live Within the past 12 months, did the food you bought not last and you didn't have the money to get more?: Never true Within the past 12 months, did you worry whether your food would run out before you got money to buy more?: Never true Do you have trouble paying for medicines?: Yes Do you have trouble getting transportation to medical appointments?: No Do you have trouble paying your heating and electricity bill?: No Do you have trouble taking care of your child, family member or friend?: No Do you have trouble with day-to-day activities such as bathing, preparing meals, shopping, managing finances, etc.?: No Are you currently unemployed and looking for a job?: No Are you interested in more education?: No Please select the resources that you would like help with: Paying for medicine Currently or been in a relationship where the following occur: No concerns reported THRIVE Score: 0 AUTUMN-7 AMB Questionnaire AUTUMN-7 Date AUTUMN - 7 assessed: 02/10/25 Source: Developed by Drs. Kayden Ibarra, Marce Phelan, Sean Arciniega and colleagues, with an educational emerald from [employer]. Review of Systems Const Denies chills, Denies fatigue, Denies fever(s), Denies headache(s) and Denies weakness ENT Denies dizziness and Denies headache(s) Card Denies dyspnea Resp Denies cough, Denies dyspnea, Denies wheezing and Denies other (shortness of breath) Musc Denies numbness and Denies tingling Neuro Denies dizziness, Denies headache(s), Denies numbness, Denies tingling and Denies weakness Psych Denies anxiety and Denies depression Endo Denies fatigue Aller/Immun Denies wheezing Physical exam (Primary Care) Vital Signs: Last Vital Signs Temp 98.3 F 09/07/25 16:13 Pulse 71 09/07/25 16:13 Resp 14 09/07/25 16:13 BP 110/70 09/07/25 16:13 Pulse Ox 95 09/07/25 16:13 Oxygen Delivery Method Room Air 09/07/25 16:13 BMI result Body Mass Index 29.6 Tobacco/Smoking Status: Tobacco use Status Tobacco use date assessed 03/11/24 09/07/25 16:11 Patient Tobacco Use Status Never used Tobacco 09/07/25 16:11 e-Cigarette/Vaping Use Never Used 09/07/25 16:11 Thrive Assessment: Date of Thrive Assessment Date Thrive assessed 01/29/25 09/07/25 16:11 Currently or been in a relationship where the following occur: No concerns reported Const General: well developed; No acute distress Nutritional Appearance: well nourished Orientation/consciousness: patient oriented x3 HENMT Head: Yes normocephalic and Yes atraumatic Eyes General: appearance normal, both eyes and all related structures Pupils: Equal, round and reactive pupils present EOM: EOMs intact bilaterally Resp Effort & Inspection: normal respiratory effort Neuro General: patient oriented x3 and gait normal Cranial nerves: Yes Equal, round and reactive pupils present Psych Affect: normal affect Coding Level of Care Code Est Pt Level 4 (15298) Diagnoses Essential hypertension I10 Coronary artery disease I25.10 Diabetes E11.9 Erectile dysfunction N52.9 Assessment & Plan Assessment & Plan (1) Essential hypertension: Code(s): I10 - Essential (primary) hypertension Category: Medical Plan: Blood pressure is well controlled. Goal is less than 130/80 Continue current medications He does note that metoprolol is making him feel a little fatigued or sluggish. 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 Follow-up with Cardiology as recommended (2) Coronary artery disease: Code(s): I25.10 - Atherosclerotic heart disease of enterprise coronary artery without angina pectoris Category: Medical Plan: Stable Follow-up with Cardiology (3) Diabetes: Code(s): E11.9 - Type 2 diabetes mellitus without complications Category: Medical Plan: A1c was elevated at his June appointment with endocrinology. He was started on Trulicity He is tolerating this well. Follow-up with endocrinology as recommended (4) Erectile dysfunction: Code(s): N52.9 - Male erectile dysfunction, unspecified Category: Medical Plan: Patient noted 50 mg of sildenafil was not effective enough. 75 mg is working well. Continue as prescribed
[2025-09-07 16:13] VITALS: BP 110/70; PULSE 71; RESP 14; TEMP 36.8; O2SAT 95; BMI 29.6
== END 2025-09-07 16:58 | disposition home or self-care (01) ==
LOC: HO.HMCFM 15:35
PROVIDERS: PCP Family Medicine; Visit Provider Family Medicine
DX: I10 Essential (primary) hypertension (principal); I25.10 Atherosclerotic heart disease of native coronary artery without angina pectoris; E11.9 Type 2 diabetes mellitus without complications; N52.9 Male erectile dysfunction, unspecified

== ENCOUNTER → 2025-09-07 15:35 | Outpatient (BNVA) | payer MEDICARE, SELFPAY | PROVIDERS: PCP Family Medicine; Visit Provider Family Medicine | DX: I10 Essential (primary) hypertension (principal); I25.10 Atherosclerotic heart disease of native coronary artery without angina pectoris; E11.9 Type 2 diabetes mellitus without complications; N52.9 Male erectile dysfunction, unspecified | CPT/HCPCS: 99212 ==